=== PATIENT | female | born 1940 | race Caucasian/White ===

== ENCOUNTER 2016-02-08 07:45 | Day surgery (SDC) | payer MEDICARE ==
[2016-01-27 14:59] VITALS: BMI 33.0
[~2016-02-08 07:45] MED LIST: LACTATED RINGERS 1,000 ML IV SCH
[2016-02-08 08:08] VITALS: RESP 16; TEMP 98
[2016-02-08] MEDS ORDERED: LIDOCAINE 1% 20 ML VIAL (10MG/ML) FOR IV START SQ ONE (08:09)
[2016-02-08] MEDS ORDERED: LACTATED RINGERS 1,000 ML IV ONE (08:19)
[2016-02-08] MEDS ORDERED: MIDAZOLAM 2 MG/2 ML VIAL ONE (08:58)
[2016-02-08] MEDS ORDERED: TRIAMCINOLONE ACETONIDE 40 MG/ML 1 ML VIAL ONE (08:58)
[2016-02-08] MEDS ORDERED: fentaNYL (PF) 50 MCG/ML 2 ML AMP ONE (08:58)
[2016-02-08] MEDS ORDERED: IOHEXOL 180 MG/ML 1 ML ML ONE (08:58)
[2016-02-08] MEDS ORDERED: BUPIVACAINE (PF) 0.25% 30 ML VIAL ONE (08:58)
--- NOTE | 2016-02-08 09:18 | P.PCN ---
Date of Procedure: 02/08/16 Preoperative Diagnosis: Left lumbar radiculopathy Postoperative Diagnosis: Left lumbar radiculopathy Procedure(s) Performed: Lumbar epidural steroid injection under fluoroscopic guidance Implants: Anesthesia: MAC Surgeon: Nehemias Banda Pathology: none sent Condition: stable Disposition: PACU Indications for Procedure: Operative Findings: Description of Procedure: The patient was seen in preop holding area consent was obtained then she was brought into the procedure room and placed in prone position. Skin was prepped with Betadine 3 and draped in a sterile manner. Lidocaine 1% was used to numb the skin over the target point was at the L5-S1 level in the left paramedian approach. I used a 20-gauge 3-1/2 inch Touhy epidural needle with loss-of- resistance to air to identify the epidural space. There was positive loss-of- resistance to air at about 9 cm from skin negative aspiration for any CSF or blood negative paresthesia I then injected 1 mL of Omnipaque which showed typical epidurogram with AP and lateral views of fluoroscopy after that I injected 80 mg of Kenalog was 2 MLS of Marcaine 0.25% +4 MLS of posterior free normal saline to a total volume of 7 MLS in epidural space. Patient tolerated procedure well.
[2016-02-08] MEDS ORDERED: IV FLUID CONTINUATION 1,000 ML IV ONE (09:24)
--- NOTE | 2016-02-08 09:38 | FL ---
Fluoroscopy INDICATION: Pain FINDINGS: Fluoroscopy time: 5 seconds. Images obtained: 1. IMPRESSIONS: 1. Documentation of fluoroscopy.
[2016-02-08 09:45] VITALS: BP 147/65; PULSE 60
== END 2016-02-08 10:05 | disposition home or self-care (01) ==
LOC: ORPAIN 07:45
PROVIDERS: ATTEND Anesthesiology
DX: M54.16 Radiculopathy, lumbar region (principal)
CPT/HCPCS: 62323; J2250; J3301; Q9965; J3010

== ENCOUNTER 2016-03-28 06:22 | Day surgery (SDC) | payer MEDICARE ==
[2016-03-21 15:14] VITALS: BMI 33.0
[2016-03-28] MEDS ORDERED: LIDOCAINE 1% 20 ML VIAL (10MG/ML) FOR IV START INTRADERMA ONE (06:50)
[2016-03-28 07:11] VITALS: RESP 16; TEMP 97.9
[2016-03-28] MEDS ORDERED: MIDAZOLAM 2 MG/2 ML VIAL ONE (07:17)
[2016-03-28] MEDS ORDERED: IOHEXOL 180 MG/ML 1 ML ML ONE (07:17)
[2016-03-28] MEDS ORDERED: fentaNYL (PF) 50 MCG/ML 2 ML AMP ONE (07:17)
[2016-03-28] MEDS ORDERED: TRIAMCINOLONE ACETONIDE 40 MG/ML 1 ML VIAL ONE (07:17)
--- NOTE | 2016-03-28 07:38 | P.PCN ---
Date of Procedure: 03/28/16 Procedure(s) Performed: PREOPERATIVE DIAGNOSIS: 1- Lumbar Degenerative Disc Diseases 2-Lumbar radiculopathy POSTOPERATIVE DIAGNOSIS: Same as preoperative diagnosis PROCEDURE 1. Lumbar epidural steroid injection under fluoroscopic guidance at the L5-S1 level. 2. Lumbar epidurogram. ANESTHESIA: Local with 1% lidocaine 3 ml and IV sedation with Versed 2 mg , and fentanyle 50 Mcg EBL: Minimal PROCEDURE INDICATION: The patient with low back pain and radiculitis symptoms unresponsive to conservative treatment. Fluoroscopy was used to optimize visualization of the needle placement and to maximize safety. PROCEDURE DESCRIPTION / TECHNIQUE: The patient was seen and identified in the preoperative area. Risks, benefits , complications including but not limited to infections ,bleeding ,allergic reaction to the medications ,nerve damage and not complete pain releife , and alternatives were discussed with the patient. The patient agreed to proceed with the procedure and signed the consent. IV was started, and vital signs were stable. Patient was taken to the OR and time out was completed. The patient was placed in the prone position on procedure table and a pillow was placed under the abdomen to reduce lumbar lordosis. The lumbosacral area was prepped and draped in the usual sterile fashion.ere closely monitored during the procedure. Conscious sedation was used during the procedure to decrease patients anxiety. Vital signs was monitered during the entire procedure. Using anterior-posterior fluoroscopy, the L5-S1 interlaminar space was identified and the skin over this site was marked and then infiltrated with 1% lidocaine subcutaneously. Subsequently, a 20-gauge Tuohy epidural needle was inserted and advanced toward the epidural space using the ``Loss of resistance technique and guided by AP and lateral fluoroscopy. The correct needle position in the epidural space was verified with the injection of 2 mL of the water soluble contrast dye Omnipaque 180 contrast and observing an excellent epidurogram with the epidural spread of the dye, after negative aspiration for blood and CSF and in the absence of paresthesias. Again after negative aspiration, a 6 ml mixture containing 80 mg of Kenalog and 2 ml of preservative free Normal Saline, and 2 ml of preservative free lidocaine 1% solution was injected and a washout of epidurogram was seen. Needle was withdrawn intact, skin was cleansed, and bandages were applied. COMPLICATIONS: None DISPOSITION / PLANS: The patient was placed in a supine position and transferred to the recovery area in a stable condition for observation. There was no evidence of lower extremity motor or sensory deficit after the procedure. Patient was discharged from the recovery room after meeting discharge criteria. Home discharge instructions were given to the patient by the staff. The patient was reexamined prior to discharge. The patient will schedule a follow up in the clinic in 2-4 weeks.
[2016-03-28 08:21] VITALS: BP 131/76; PULSE 61
[2016-03-28] MEDS ORDERED: IV FLUID CONTINUATION 1,000 ML IV ONE (08:32)
--- NOTE | 2016-03-28 08:45 | FL ---
Fluoroscopy HISTORY: Pain 1 second fluoroscopy time supplied to the referring clinician. 1 intraoperative C-arm images documen t the procedure. See dictated report from anesthesia.
== END 2016-03-28 08:44 | disposition home or self-care (01) ==
LOC: ORPAIN 06:22
PROVIDERS: ATTEND Specialist
DX: M51.16 Intervertebral disc disorders with radiculopathy, lumbar region (principal); I10 Essential (primary) hypertension; Z79.891 Long term (current) use of opiate analgesic; Z79.899 Other long term (current) drug therapy
CPT/HCPCS: 62323; J2250; J3301; Q9965; J3010

== ENCOUNTER 2016-05-10 09:49 | Day surgery (SDC) | payer MEDICARE ==
[2016-04-28 11:18] VITALS: BMI 33.0
[2016-05-10] MEDS ORDERED: LACTATED RINGERS 1,000 ML IV ONE (09:53)
[2016-05-10 10:04] VITALS: RESP 18; TEMP 98
[2016-05-10] MEDS ORDERED: LIDOCAINE 1% 20 ML VIAL (10MG/ML) FOR IV START INTRADERMA ONE (10:12)
[2016-05-10] MEDS ORDERED: TRIAMCINOLONE ACETONIDE 40 MG/ML 1 ML VIAL ONE (11:05)
[2016-05-10] MEDS ORDERED: fentaNYL (PF) 50 MCG/ML 2 ML AMP ONE (11:05)
[2016-05-10] MEDS ORDERED: MIDAZOLAM 2 MG/2 ML VIAL ONE (11:05)
[2016-05-10] MEDS ORDERED: IOHEXOL 180 MG/ML 1 ML ML ONE (11:05)
[2016-05-10] MEDS ORDERED: IV FLUID CONTINUATION 1,000 ML IV ONE (11:57)
[2016-05-10 12:38] VITALS: BP 145/75; PULSE 60
--- NOTE | 2016-05-10 13:08 | FL ---
Fluoroscopy INDICATION: Pain FINDINGS: Fluoroscopy time: 14 seconds. Images obtained: 2. IMPRESSIONS: 1. Documentation of fluoroscopy.
--- NOTE | 2016-05-30 08:13 | P.PCN ---
Date of Procedure: 05/10/16 Surgeon: Isidro Boss Pathology: none sent Condition: stable Disposition: PACU Description of Procedure: PREOPERATIVE DIAGNOSIS: 1-Lumbar radiculitis. POSTOPERATIVE DIAGNOSIS: 1-Lumbar radiculitis. PROCEDURE 1. Lumbar epidural steroid injection under fluoroscopic guidance at the L5-S1 level. 2. Lumbar epidurogram. ANESTHESIA: Local with 1% lidocaine; IV sedation with Versed/fentanyl. EBL: Minimal PROCEDURE INDICATION: The patient with low back pain and radiculitis symptoms unresponsive to conservative treatment. Fluoroscopy was used to optimize visualization of the needle placement and to maximize safety. No use of blood thinners. PROCEDURE DESCRIPTION / TECHNIQUE: The patient was seen and identified in the preoperative area. Risks, benefits, complications, and alternatives were discussed with the patient, including but not limited to bleeding, infection, nerve damage, allergic reactions to medications, and incomplete pain relief. The patient agreed to proceed with the procedure and signed the consent after all questions were answered. IV was started, and vital signs were stable. Patient was taken to the OR and time out was completed to confirm patient position, procedure, laterality of pain, and allergies. The patient was placed in the prone position on procedure table and a pillow was placed under the abdomen to reduce lumbar lordosis. The lumbosacral area was prepped and draped in the usual sterile fashion. Critical pause was taken. Vital signs were closely monitored during the procedure. Conscious sedation was used during the procedure to decrease patients anxiety. Using anterior-posterior fluoroscopy, the L5-S1 interlaminar space was identified and the skin over this site was marked and then infiltrated with 1% lidocaine subcutaneously. Subsequently, a 20-gauge Tuohy epidural needle was inserted and advanced toward the epidural space using the Loss of resistance technique and guided by AP and lateral fluoroscopy. The correct needle position in the epidural space was verified with the injection of 2 mL of the water soluble contrast dye Omnipaque 300 contrast and observing an excellent epidurogram with the epidural spread of the dye, after negative aspiration for blood and CSF and in the absence of paresthesias. Again after negative aspiration, a 8 ml mixture containing 80 mg of Kenalog and 4 ml of preservative free Normal Saline, and 2 ml of preservative free lidocaine 1% solution was injected and a washout of epidurogram was seen. Needle was withdrawn intact, skin was cleansed, and bandages were applied. COMPLICATIONS: None COMMENTS: DISPOSITION / PLANS: The patient was placed in a supine position and transferred to the recovery area in a stable condition for observation. There was no evidence of lower extremity motor or sensory deficit after the procedure. Patient was discharged from the recovery room after meeting discharge criteria. Home discharge instructions were given to the patient by the staff. The patient was reexamined prior to discharge and there were no issues. The patient will schedule a follow up in the clinic in 2-4 weeks.
== END 2016-05-10 12:43 | disposition home or self-care (01) ==
LOC: ORPAIN 09:49
PROVIDERS: ATTEND Anesthesiology
DX: G89.29 Other chronic pain (principal); M54.16 Radiculopathy, lumbar region; I10 Essential (primary) hypertension; E78.5 Hyperlipidemia, unspecified; F41.9 Anxiety disorder, unspecified; Z88.6 Allergy status to analgesic agent; Z88.5 Allergy status to narcotic agent; Z88.8 Allergy status to other drugs, medicaments and biological substances
CPT/HCPCS: 62323; 99152; J2250; J3301; Q9965; J3010

== ENCOUNTER → 2016-06-15 | Outpatient (CLI) | payer MEDICARE ==
[2016-06-15 09:06] LABS: Blood Urea Nitrogen 18 mg/dL (7-17); Non-African American GFR(MDRD) >60 (>60 ml/min/1.73 sqM)
--- NOTE | 2016-06-15 09:59 | CT ---
EXAMINATION TYPE: CT abdomen w con DATE OF EXAM: 06/15/2016 9:39 AM COMPARISON: NONE HISTORY: Patient complains of bilateral upper quadrant pain, nausea, and diarrhea. CT DLP: 857.2 mGycm CONTRAST: CT scan of the abdomen is performed with Oral Contrast and with IV Contrast, patient injected with 10 0 mL of Omnipaque 300. FINDINGS: LUNG BASES-: No visible nodule. No infiltrate. LIVER/GB: The gallbladder is surgically absent. There is evidence of fatty hepatic infiltration. N o space occupying hepatic lesion. Biliary tree is of normal caliber. PANCREAS: No inflammation. No distinct mass. SPLEEN: No splenic enlargement. No lesion seen. ADRENALS: No nodule. No thickening. KIDNEYS/BLADDER: No hydronephrosis. No nephrolithiasis. Large left renal cyst measuring 6.9 cm. Ur inary bladder grossly unremarkable. BOWEL: Nonvisualization of the appendix. Moderate fixed hiatal hernia. Normal bowel caliber. No inf lammation. LYMPH NODES: No greater than 1cm abdominal or pelvic lymph nodes are appreciated. AORTA: No significant abnormality. OSSEOUS STRUCTURES: No significant abnormality is seen. OTHER: No significant additional abnormality is seen. IMPRESSION: 1. Moderate fixed hiatal hernia. 2. Hepatic steatosis. 3. Left renal cyst
== END | disposition home or self-care (01) ==
LOC: RADCTMAIN 08:15
PROVIDERS: ATTEND Internal Medicine
DX: N28.1 Cyst of kidney, acquired (principal); K76.0 Fatty (change of) liver, not elsewhere classified; K44.9 Diaphragmatic hernia without obstruction or gangrene
CPT/HCPCS: 82565; 84520; 74160; 36415; Q9967

== ENCOUNTER → 2016-06-21 | Outpatient (CLI) | payer MEDICARE ==
[2016-06-21 14:44] VITALS: BP 126/59; PULSE 68; RESP 18; TEMP 98.2
--- NOTE | 2016-06-21 20:56 | P.PN ---
Subjective This is follow-up visit for this patient with a history of severe and chronic low back pain secondary to lumbar degenerative disc diseases , lumbar radiculitis we have done Lumbar epidural steroid injections x3 , patient had minimal benefit and she continued to have severe low back pain ,and is currently on pain medications 1-Neurontin 300 mg 3 times a day 2-Percocet 5/325 every 6 hours Patient denies any side effects of the medication, denies excessive drowsiness or sleepiness, denies suicidal ideation, and reports that the current pain medication is helping To control the pain and improve activity of daily living Patient denies any motor or sensory deficit , patient denies any fever or night sweats, denies any change in the bowel movements or urination Physical Examinations : 1-Constitutiona : Cooperative , not in acute distress . 2-HEENT : nech ; supple , no Lymphadenopathy , no Thyromegaly , normal thyroid size . eyes : no ptosis , no icterus, no photophobia . ENT : normal of hearing , normal oropharynx , no Thrush . 3- Respiratory : Chest clear to auscultations Bilaterally , no wheezing , no Rhonchi . 4- Cardiovascular : regular rate and rhythem , S1 , S2 , no S3 , no S4. 5- Gastrointestinal : abdomen soft no tenderness , bowel sounds positive all four quadrents , no organomegally . 6- Genitourinary : Defferred . 7- neurologic : Cranial nerve II to XII intact , no focal neurological deffecit . 8-psychatric : alert , oriented X 3 , appropriate affect , intact judgment and insight . 9-Lymphatic : no Lymphadenopathy . 10- musculoskeltal : exams of the Lumber spine = motor strength lower extremities ,thigh and legs .5/5 deep tendon reflexes : normal Knee Jerk , normal ankle Jerk . lumber facet Loading Test positive strait leg raising test positive at 30 degree , RT ,LT , Fabere test positive RT and positive LT . Range of motion: Range of motion in flexion of the lumbar spine 30 degrees Range of motion range of motion of extension of the lumbar spine 10 Assessment and plan = - Chronic low back pain secondary to lumbar degenerative disc disease , lumbar radiculopathy, - chronic and current use of high-risk medication (Opioids). The patient was counseled about risk of opioid use, psychological risk associated with opioids and was orally counseled to not overuse , divert,or sell dictations to take medications as prescribed only , and to restore medication in safe location , and the patient counseled against driving while using narcotic medications, and also not to use alcohol or any illicit recreational drugs, the patient's verbalized understanding that the lack of compliance will result in failure to renew narcotic prescription and possible discharge from the clinic - diagnoses, prognosis, and treatment options including but not limited to physical therapy, surgical interventions, interventional therapies , and medication management including narcotics and adjuvant medication discussed with the patient, ascription refill for Percocet 5/325 every 6 hours dispensed 120 with one refill Neurontin 300 mg every 8 hours dispense 90 with 1 refill and she will follow up with the pain clinic in 2 months Objective - Vital Signs Vital signs: Vital Signs Temp 98.2 F 06/21/16 14:36 Pulse 68 06/21/16 14:36 Resp 18 06/21/16 14:36 BP 126/59 06/21/16 14:36 Pulse Ox 98 06/21/16 14:36 Intake & Output 06/21/16 06/21/16 06/22/16 06:59 18:59 06:59 Weight 80.739 kg
== END ==
LOC: PNWHC3 13:49
PROVIDERS: ATTEND Specialist
DX: M51.16 Intervertebral disc disorders with radiculopathy, lumbar region (principal); G89.29 Other chronic pain; Z87.891 Personal history of nicotine dependence
CPT/HCPCS: 99211

== ENCOUNTER → 2016-08-16 | Outpatient (CLI) | payer MEDICARE ==
[2016-08-16 12:37] VITALS: BP 121/66; PULSE 95; RESP 20; TEMP 97.6
--- NOTE | 2016-08-16 13:25 | P.PN ---
Progress Note - Text Patient returns for follow up for chronic low back and neck pain, s/p LESIs in the past with relief x 1-2 months typically. Patient continues on Percocet and Neurontin medications for pain with good relief. Patient denies adverse drug effects from medications. Today, pt denies new-onset weakness, bowel/ bladder incontinence, or any other signs or symptoms of cauda equina syndrome. There are no signs of acute intoxication, and no indications of medication diversion or overuse. In addition to above, 13-point review of systems is also negative for chest pain , shortness of breath, changes in vision, changes in hearing, new onset weakness , abdominal pain, diarrhea, extreme fatigue, malaise, fever, skin changes, homicidal or suicidal ideation, or bowel or bladder incontinence. Vital Signs: Reviewed in EMR Gen: WDWN, AAOx3, NAD HEENT: NCAT, EOMI, hearing grossly normal Pulm: resp unlabored Abd: soft, NT, ND Neck: supple, trachea midline ROM in flexion lumbar spine: reduced ROM in extension lumbar spine: reduced Lumbar paravertebral tenderness: bilateral SI joint tenderness: + R side SLR: + RLE Lower extremity: decreased ROM dorsiflexion/plantarflexion strength, hip flexion/extension, and knee flexion/extension secondary to pain Neuro: CN II-XII grossly intact, muscle strength lower extremities PRESERVED Imaging: Reviewed in EMR Assessment: 1. lumbar disc herniations 2. lumbar radiculopathy 3. lumbar DDD Plan: 1. Explanation: Opioid and psychological risk scores were reviewed. Diagnoses , prognoses, and multiple treatment options including but not limited to physical therapy, interventional therapies, adjuvant medical therapies, narcotic medication therapies, and surgery were discussed with the patient and all questions were answered to the patient's satisfaction. 2. Opioid agreement: Patient has previously signed narcotic agreement, and was orally counseled to not overuse, abuse, divert, or cell medications, and to take them as prescribed by only 1 healthcare provider. The patient was also counseled to store opioid medications in a safe and preferably locked location. Patient was also counseled against driving while using narcotic medications and also to not use alcohol or any illicit or recreational drugs. The patient verbalized understanding that lack of compliance with any of the above and likely result in failure to renew narcotic prescriptions, possible discharge from the clinic, and possible legal ramifications thereafter if indicated. 3. Counseling: The patient was counseled extensively on SMOKING CESSATION, BODY MASS INDEX, EXERCISE. Specifically, the patient was instructed regarding the importance of smoking cessation, obesity, and exercise in the context of both chronic pain and overall health. 4. Procedures: LESI in 4-6 weeks 5. Consultations: None 6. Investigations: MRI lumbar spine 7. Medications: Percocet 5/325 #120 x 2 months (patient has enough Neurontin for at least six more months) 8. Disposition: f/u for procedure as scheduled, and for re-eval in 8 weeks PQRS measures: 1-Patient's medications are documented in the chart. 2-Tobacco use is negative 3-Patient has not had a pneumococcal vaccine. 4-Advanced care planning discussed, patient unable to give. 5-Opioid contract signed with the patient. 6-Pain positive, follow-up visit or procedure scheduled 7-Patient's blood pressure measured and documented, and patient will follow up with the primary care due to hypertension. 8-Patient's weight was measured, and body mass index ABOVE the normal limits, and counseling was done. Patient instructed to follow up with PCP. 9-Patient WAS NOT identified as an unhealthy alcohol user.
== END ==
LOC: PNWHC3 11:53
PROVIDERS: ATTEND Anesthesiology
DX: M51.16 Intervertebral disc disorders with radiculopathy, lumbar region (principal); Z79.891 Long term (current) use of opiate analgesic; Z79.899 Other long term (current) drug therapy
CPT/HCPCS: 99211

== ENCOUNTER → 2016-08-25 | Outpatient (CLI) | payer MEDICARE ==
--- NOTE | 2016-08-28 12:53 | MM ---
Reason for exam: screening (asymptomatic). Last mammogram was performed 3 years and 3 months ago. History: Patient is postmenopausal. Family history of premenopausal breast cancer in mother at age 31. Benign excisional biopsy of the left breast, 1996. Taking estrogen for 11 years 2 months beginning at age 59. Physical Findings: A clinical breast exam by your physician is recommended on an annual basis and results should be correlated with mammographic findings. MG 3D Screening Mammo W/Cad Bilateral CC and MLO view(s) were taken. Prior study comparison: May 23, 2013, bilateral digital screening mammo w/CAD. February 15, 2012, bilateral digital screening mammo w/CAD. There are scattered fibroglandular densities. Finding: There are typically benign vascular, round calcifications in both breasts. Asymmetric breast tissue in the right breast outer quadrant is stable. There is no discrete abnormality. ASSESSMENT: Benign, BI-RAD 2 RECOMMENDATION: Routine screening mammogram of both breasts in 1 year.
== END | disposition home or self-care (01) ==
LOC: RADMAMWWP 08:59
PROVIDERS: ATTEND Internal Medicine
DX: Z12.31 Encounter for screening mammogram for malignant neoplasm of breast (principal)
CPT/HCPCS: 77063; G0202

== ENCOUNTER → 2016-08-28 | Outpatient (CLI) | payer MEDICARE ==
--- NOTE | 2016-08-29 17:00 | BD ---
EXAMINATION TYPE: MG DEXA axial skeleton. DATE OF EXAM: 08/28/2016 COMPARISON: NONE CLINICAL HISTORY: 75-year-old female osteoporosis Height: 59 IN Weight: 173 LBS FRAX RISK QUESTIONS: Alcohol (3 or more units per day): NO Family History (Parent hip fracture): NO Glucocorticoids (More than 3mos): NO (Ex: prednisone, prednisolone, methylprednisolone, dexamethasone, and hydrocortisone). History of Fracture in Adulthood: NO Secondary Osteoporosis: 1. Type 1 Diabetes: NO 2. Hyperthyroidism: NO 3. Menopause before 45: NO AGE 46 4. Malnutrition: NO 5. Chronic liver disease: NO Rheumatoid Arthritis: NO Current Tobacco Use: NO RISK FACTORS HISTORY OF: Active: MODERATE USES CANE Diet low in dairy products/other sources of calcium: YES Postmenopausal woman: AGE 46 Take estrogen and/or progesterone medications: NOT NOW How long: AGE 46 - 68 Frequent falls: YES BALANCE ISSUES MEDICATIONS: Additional Medications: VIT D3, BLOOD PRESSURE MEDS, BIOTIN, MULTI VIT, PERCOCET, ZOLOFT, COLACE, ANT IHISTAMINE, EXAM MEASUREMENTS: Bone mineral densitometry was performed using the [employer]. Bone mineral density as measured about the Lumbar spine is: ----- L1-L4(G/cm2): 1.328 T Score Values are as follows: ----- L2: 1.6 ----- L3: 2.4 ----- L4: 1.4 ----- L1-L4: 1.2 Bone mineral density has: Decreased -6.6% since study of: 08/15/2012 Bone mineral density about the R hip (g/cm2): 0.933 Bone mineral density about the L hip (g/cm2): 0.926 T Score values are as follows: -----R Neck: -0.8 -----L Neck: -0.8 -----R Total: -0.3 -----L Total: -0.5 Bone mineral density has: NOT COMPARED TO study of: 08/15/2012 IMPRESSION: Normal (Values between +1 and -1 indicate normal bone mass). Consider repeating this study in 5 year s or sooner if there is some new clinical indication. NOTE: T-SCORE=SD OF THE YOUNG ADULT MEAN.
== END | disposition home or self-care (01) ==
LOC: RADBDWWP 15:39
PROVIDERS: ATTEND Internal Medicine
DX: M81.0 Age-related osteoporosis without current pathological fracture (principal)
CPT/HCPCS: 77080

== ENCOUNTER → 2016-08-31 | Outpatient (CLI) | payer MEDICARE ==
--- NOTE | 2016-08-31 14:09 | MR ---
EXAMINATION TYPE: MR lumbar spine wo con DATE OF EXAM: 08/31/2016 COMPARISON: MRI lumbar spine October 18, 2010 HISTORY: lumbar spondylosis per order. Back going into bilateral legs Pain with difficulty ambulating per patient for 10 years. TECHNIQUE: Multiplanar, multisequence imaging of the lumbar spine is performed without IV contrast. FINDINGS: Sagittal images of the lumbar spine show vertebral body heights to remain satisfactory. The re is levoconvex scoliosis centered at L2 level and dextroconvex scoliosis centered at lumbosacral ju nction redemonstrated. There is new grade 1 anterolisthesis of L4 on L5 seen on sagittal images. Mult ilevel disc desiccation is redemonstrated. There is advanced disc space narrowing with heterogeneous endplate changes right L2-L3 and left L4-L5 levels more prominent than prior study. Posterior disc he rniations L2-L3 through L4-L5 levels are redemonstrated on sagittal images. Most prominent level is L 3-L4 level where there is increased spinal canal stenosis seen on sagittal images. The conus medullar is remains normal in position and signal ending at mid L1 level. The bone marrow signal intensity is within normal limits. Axial images show the T12-L1 level to remain within normal limits. Axial images at L1-L2 level show broad-based posterior disc protrusion effacing anterior thecal sac. There is mild ligamentum flavum hypertrophy bilaterally effacing posterior lateral thecal sac on axia l image 23. Findings are new from prior study. Bilateral neural foramina remain patent. Axial images at the L2-L3 level show mild to moderate facet degenerative changes and ligamentum flavu m hypertrophy effacing posterior lateral thecal sac. There is moderate broad disc bulge effacing the anterior thecal sac. There is moderate right and mild left-sided anterior inferior neural foraminal n arrowing at this level identified. No significant change from prior study is present. Axial images at L3-L4 levels show slight spondylolisthesis with broad disc bulge that has central dis c protrusion component effacing anterior thecal sac on axial image 12. There is moderate facet degene rative changes and ligament flavum hypertrophy effacing the posterior lateral thecal sac. There is mo st prominent spinal canal stenosis at this level on axial image 12 increased from prior study. There is moderate to severe bilateral neural foraminal narrowing with encroachment on both L3 nerves suspec betsy on sagittal images 11 and 12 on the right and on sagittal image 4 on the left. Axial images at L4-L5 level show spondylolisthesis with broad-based posterior disc protrusion effacin g anterior thecal sac. There is moderate to advanced facet degenerative changes bilaterally. There is anterior and posterior lateral spinal canal effacement on axial image 7 more prominent than prior st udy. There is mild to moderate right anterior inferior neural foraminal narrowing with more severe le ft-sided neural foraminal narrowing with encroachment on the left L4 nerve seen on sagittal image 6 r edemonstrated. Axial images at L5-S1 level show moderate facet degenerative changes bilaterally. There is no signifi cant disc herniation. Spinal canal is preserved. Bilateral neural foramina are grossly patent. There is partial visualization of large T2 hyperintense lesion felt to reflect thin-walled cyst measu ring at least 6.5 x 4.3 cm posteriorly lower pole level left kidney increased in size from prior exam . This correlates with recent CT abdomen study of large but otherwise simple appearing 6.9 cm cyst. IMPRESSION: Scoliosis and loss of normal lumbar lordosis with multilevel degenerative changes seen mo st prominent in mid to lower lumbar spine. There is worsening and most prominent spinal canal stenosi s at L3-L4 level. Encroachment on both L3 nerves and left L4 nerve is felt present. Further details a re noted as discussed above.
== END | disposition home or self-care (01) ==
LOC: RADMRIMAIN 13:03
PROVIDERS: ATTEND Anesthesiology
DX: M48.06 Spinal stenosis, lumbar region (principal); M47.816 Spondylosis without myelopathy or radiculopathy, lumbar region
CPT/HCPCS: 72148

== ENCOUNTER 2016-09-28 07:19 | Day surgery (SDC) | payer MEDICARE ==
[2016-09-25 11:41] VITALS: BMI 32.5
[2016-09-28 07:42] VITALS: RESP 16; TEMP 98.1
[2016-09-28] MEDS ORDERED: LIDOCAINE 1% 20 ML VIAL (10MG/ML) FOR IV START INTRADERMA ONE (07:43)
--- NOTE | 2016-09-28 08:10 | P.PCN ---
Date of Procedure: 09/28/16 Preoperative Diagnosis: Lumbar stenosis Lumbar degenerative disc disease Lumbar radiculopathy Postoperative Diagnosis: same as above Procedure(s) Performed: Lumbar epidural steroid injection under fluoroscopic guidance at the L4 5 level in the interlaminar approach Implants: Anesthesia: other (Conscious sedation with IV fentanyl and Versed) Surgeon: Nehemias Banda Pathology: none sent Condition: stable Disposition: PACU Indications for Procedure: Operative Findings: Description of Procedure: The patient was seen in preop holding area consent was obtained then she was brought into the procedure when placed in prone position. Skin was prepped with Betadine 3 and draped in a sterile manner. Lidocaine 1% was used to numb the skin up at the target point was at the L4 5 level. I used 20-gauge 3-1/2 inch Touhy epidural needle with [id number] to air to identify the epidural space. There was positive [id number]-rukikizzbe to air negative aspiration for any CSF or blood negative paresthesia after that I injected 2 MLS of Omnipaque which showed typical epidurogram with AP view of fluoroscopy then I injected 80 mg of Kenalog plus 2 mils of Marcaine 0.25% +3 MLS of preservative free normal saline to a total volume of 7 MLS in epidural space. Patient tolerated procedure well.
[2016-09-28] MEDS ORDERED: IV FLUID CONTINUATION 1,000 ML IV ONE (08:19)
--- NOTE | 2016-09-28 08:36 | FL ---
EXAMINATION TYPE: FL guided pain mgmt statistic DATE OF EXAM: 09/28/2016 COMPARISON: NONE HISTORY: Back pain TECHNIQUE: Fluoroscopy. FINDINGS/IMPRESSION: Fluoroscopic guidance was provided during procedure performed by Dr. Banda. A total of 8 seconds of fluoroscopic time was utilized during the procedure and 1 spot images was acq uired.
[2016-09-28 08:44] VITALS: BP 136/69; PULSE 55
== END 2016-09-28 09:07 | disposition home or self-care (01) ==
LOC: ORPAIN 07:19
DX: M48.06 Spinal stenosis, lumbar region (principal); M51.16 Intervertebral disc disorders with radiculopathy, lumbar region; Z88.6 Allergy status to analgesic agent; Z88.5 Allergy status to narcotic agent
CPT/HCPCS: 62323; 99152; J2250; J3301; Q9965; J3010

== ENCOUNTER → 2016-10-11 | Outpatient (CLI) | payer MEDICARE ==
[2016-10-11 14:49] VITALS: BP 162/83; PULSE 67; RESP 18
--- NOTE | 2016-10-11 15:22 | P.PN ---
Progress Note - Text This is a 75-year-old female with history of severe degenerative disc disease lumbar stenosis and spondylosis. The patient also has peripheral neuropathy. Gets worse with activity especially walking for long distances which limits the patient's daily activities. The new MRI results were reviewed with the patient which showed worsening and prominent spinal canal stenosis at L3-4 level with encroachment on both L3 and left L4 nerve roots. The patient's pain usually responds partially to lumbar epidural steroid injection which usually last for 2-3 months. The patient is still takes Percocet 5 mg 4 times a day for her pain and Neurontin. She wants to visit Dr. Baron to see if she would be a candidate for back surgery. It seems that the patient has been having urinary incontinence issues and I asked her to see a urologist and also visit Dr. Baron to try to discern the cause of this incontinence. For now I'll give her prescription for 2 months of Percocet 5 mg to be used up to 4 times a day if needed for pain and we'll see her 2 months from now for reevaluation.
== END | disposition home or self-care (01) ==
LOC: PNWHC3 14:03
PROVIDERS: ATTEND Anesthesiology
DX: M48.06 Spinal stenosis, lumbar region (principal); M51.36 Other intervertebral disc degeneration, lumbar region; M47.816 Spondylosis without myelopathy or radiculopathy, lumbar region; Z79.891 Long term (current) use of opiate analgesic; Z79.899 Other long term (current) drug therapy
CPT/HCPCS: 99211

== ENCOUNTER → 2017-02-28 | Outpatient (CLI) | payer MEDICARE ==
[2017-02-28 13:22] VITALS: BP 120/76; PULSE 63; RESP 16; TEMP 98.3
--- NOTE | 2017-02-28 13:43 | P.PN ---
Progress Note - Text Progress Note Date: 02/28/17 Patient returns for follow up for chronic low back and neck pain, s/p LESIs in the past with relief x 1-2 months typically. Patient has now decided against laser spine procedure; she has had poor relief with oxycodone and wishes to go back to her Percocet pills as they lasted longer for her. Patient continues on Neurontin medications as well with some relief. Patient denies adverse drug effects from medications. Today, pt denies new-onset weakness, bowel/bladder incontinence, or any other signs or symptoms of cauda equina syndrome. There are no signs of acute intoxication, and no indications of medication diversion or overuse. In addition to above, 13-point review of systems is also negative for chest pain , shortness of breath, changes in vision, changes in hearing, new onset weakness , abdominal pain, diarrhea, extreme fatigue, malaise, fever, skin changes, homicidal or suicidal ideation, or bowel or bladder incontinence. Vital Signs: Reviewed in EMR Gen: WDWN, AAOx3, NAD HEENT: NCAT, EOMI, hearing grossly normal Pulm: resp unlabored Abd: soft, NT, ND Neck: supple, trachea midline ROM in flexion lumbar spine: reduced ROM in extension lumbar spine: reduced Lumbar paravertebral tenderness: bilateral, R > L SI joint tenderness: mild + R side SLR: + RLE at 10 degrees Lower extremity: decreased ROM dorsiflexion/plantarflexion strength, hip flexion/extension, and knee flexion/extension secondary to pain Neuro: CN II-XII grossly intact, muscle strength lower extremities PRESERVED Imaging: Reviewed in EMR Assessment: 1. lumbar disc herniations 2. lumbar radiculopathy 3. lumbar DDD Plan: 1. Explanation: Opioid and psychological risk scores were reviewed. Diagnoses , prognoses, and multiple treatment options including but not limited to physical therapy, interventional therapies, adjuvant medical therapies, narcotic medication therapies, and surgery were discussed with the patient and all questions were answered to the patient's satisfaction. 2. Opioid agreement: Patient has previously signed narcotic agreement, and was orally counseled to not overuse, abuse, divert, or cell medications, and to take them as prescribed by only 1 healthcare provider. The patient was also counseled to store opioid medications in a safe and preferably locked location. Patient was also counseled against driving while using narcotic medications and also to not use alcohol or any illicit or recreational drugs. The patient verbalized understanding that lack of compliance with any of the above and likely result in failure to renew narcotic prescriptions, possible discharge from the clinic, and possible legal ramifications thereafter if indicated. 3. Counseling: The patient was counseled extensively on BODY MASS INDEX, EXERCISE. Specifically, the patient was instructed regarding the importance of weight control and exercise in the context of both chronic pain and overall health. 4. Procedures: BARBARAI series (patient specifically requested procedure) 5. Consultations: None 6. Investigations: none 7. Medications: Change oxyIR back to Percocet 5/325 #120 x 2 months and decrease Neurontin to 100 mg BID as patient is complaining of some short-term memory loss 8. Disposition: f/u for procedure as scheduled, and for re-eval in 8 weeks PQRS measures: 1-Patient's medications are documented in the chart. 2-Tobacco use is negative 3-Patient has not had a pneumococcal vaccine. 4-Advanced care planning discussed, patient unable to give. 5-Opioid contract signed with the patient. 6-Pain positive, follow-up visit or procedure scheduled 7-Patient's blood pressure measured and documented, and patient will follow up with the primary care due to hypertension. 8-Patient's weight was measured, and body mass index ABOVE the normal limits, and counseling was done. Patient instructed to follow up with PCP. 9-Patient WAS NOT identified as an unhealthy alcohol user.
== END | disposition home or self-care (01) ==
LOC: PNWHC3 12:57
PROVIDERS: ATTEND Anesthesiology
DX: G89.29 Other chronic pain (principal); M54.5 Low back pain; M54.2 Cervicalgia; M51.16 Intervertebral disc disorders with radiculopathy, lumbar region; Z79.891 Long term (current) use of opiate analgesic; Z79.899 Other long term (current) drug therapy
CPT/HCPCS: 99211

== ENCOUNTER 2017-03-29 07:31 | Day surgery (SDC) | payer MEDICARE ==
[2017-03-29 07:52] VITALS: RESP 18; TEMP 97.9
[2017-03-29] MEDS: LACTATED RINGERS 1,000 ML IV SCH ×2 (08:07→08:24)
[2017-03-29] MEDS ORDERED: LIDOCAINE 1% 20 ML VIAL (10MG/ML) FOR IV START INTRADERMA ONE (08:07)
--- NOTE | 2017-03-29 08:37 | P.PCN ---
Date of Procedure: 03/29/17 Procedure(s) Performed: PREOPERATIVE DIAGNOSIS: 1- Lumbar Degenerative Disc Diseases 2-Lumbar spondylosis with Facet arthropathy without myelopathy. 3-lumbar herniated disc disease. POSTOPERATIVE DIAGNOSIS: 1-Lumber Degenerative Disc Diseases 2-Lumbar spondylosis with Facet arthropathy without myelopathy. 3-lumbar herniated disc disease. PROCEDURE 1. Lumbar epidural steroid injection under fluoroscopic guidance at the L5-S1 level. 2. Lumbar epidurogram. ANESTHESIA: Local with 1% lidocaine 3 ml and , moderate sedation with intravenous Versed 2 mg ,and fentanyle 100 Mcg EBL: Minimal PROCEDURE INDICATION: The patient with low back pain and radiculitis symptoms unresponsive to conservative treatment. Fluoroscopy was used to optimize visualization of the needle placement and to maximize safety. PROCEDURE DESCRIPTION / TECHNIQUE: The patient was seen and identified in the preoperative area. Risks, benefits , complications including but not limited to infections ,bleeding ,allergic reaction to the medications ,nerve damage and not complete pain releife , and alternatives were discussed with the patient. The patient agreed to proceed with the procedure and signed the consent. IV was started, and vital signs were stable. Patient was taken to the OR and time out was completed. The patient was placed in the prone position on procedure table and a pillow was placed under the abdomen to reduce lumbar lordosis. The lumbosacral area was prepped and draped in the usual sterile fashion.ere closely monitored during the procedure. Conscious sedation was used during the procedure to decrease patients anxiety. Vital signs was monitered during the entire procedure. Using anterior-posterior fluoroscopy, the L5-S1 interlaminar space was identified and the skin over this site was marked and then infiltrated with 1% lidocaine subcutaneously. Subsequently, a 20-gauge Tuohy epidural needle was inserted and advanced toward the epidural space using the ``Loss of resistance technique and guided by AP and lateral fluoroscopy. The correct needle position in the epidural space was verified with the injection of 2 mL of the water soluble contrast dye Omnipaque 180 contrast and observing an excellent epidurogram with the epidural spread of the dye, after negative aspiration for blood and CSF and in the absence of paresthesias. Again after negative aspiration, a 6 ml mixture containing 40 mg of Depomedrol, and 2 ml of preservative free Normal Saline, and 2 ml of preservative free lidocaine 1% solution was injected and a washout of epidurogram was seen. Needle was withdrawn intact, skin was cleansed, and bandages were applied. COMPLICATIONS: None DISPOSITION / PLANS: The patient was placed in a supine position and transferred to the recovery area in a stable condition for observation. There was no evidence of lower extremity motor or sensory deficit after the procedure. Patient was discharged from the recovery room after meeting discharge criteria. Home discharge instructions were given to the patient by the staff. The patient was reexamined prior to discharge. The patient will schedule a follow up in the clinic in 2-4 weeks.
[2017-03-29] MEDS ORDERED: IV FLUID CONTINUATION 1,000 ML IV ONE (08:45)
--- NOTE | 2017-03-29 08:46 | FL ---
Fluoroscopy INDICATION: Pain FINDINGS: Fluoroscopy time: 2 seconds. Images obtained: 1. IMPRESSIONS: 1. Documentation of fluoroscopy.
[2017-03-29 09:11] VITALS: BP 132/72; PULSE 57
== END 2017-03-29 09:28 | disposition home or self-care (01) ==
LOC: ORPAIN 07:31
PROVIDERS: ATTEND Specialist
DX: M51.16 Intervertebral disc disorders with radiculopathy, lumbar region (principal); M47.26 Other spondylosis with radiculopathy, lumbar region; I10 Essential (primary) hypertension; Z88.6 Allergy status to analgesic agent; Z88.5 Allergy status to narcotic agent; Z88.8 Allergy status to other drugs, medicaments and biological substances
CPT/HCPCS: 62323; J2250; J1030; J3010

== ENCOUNTER → 2017-04-25 | Outpatient (CLI) | payer MEDICARE ==
[2017-04-25 12:19] VITALS: BP 110/66; PULSE 62; RESP 18; TEMP 97.6
--- NOTE | 2017-04-25 12:48 | P.PN ---
Subjective Progress Note Date: 04/25/17 This is follow-up visit for this patient with a history of severe and chronic low back pain secondary to lumbar degenerative disc disease, lumbar facet arthropathy, we have done Lumbar epidural steroid injections which helped her low back pain , she continued to have low back pain which is increased with any activity patient currently on Neurontin 100 mg twice a day , Percocet 5/325 every 6 hours Patient denies any side effects of the medication, denies excessive drowsiness or sleepiness, denies suicidal ideation, and reports that the current pain medication is helping To control the pain and improve activity of daily living . Patient denies any motor or sensory deficit, denies change in bowel movement or urination, patient denies any fever or night sweats and patient here for follow-up visit and medication refill Objective - Vital Signs Vital signs: Vital Signs Temp 97.6 F 04/25/17 12:12 Pulse 62 04/25/17 12:12 Resp 18 04/25/17 12:12 BP 110/66 04/25/17 12:12 Pulse Ox 97 04/25/17 12:12 Intake & Output 04/24/17 04/25/17 04/25/17 18:59 06:59 18:59 Weight 74.843 kg - Constitutional Constitutional Comment(s): Physical Examinations : 1-Constitutiona : Cooperative , not in acute distress . 2-HEENT : nech ; supple , no Lymphadenopathy , normal thyroid size . eyes : no ptosis , no icterus, no photophobia . 3-- musculoskeltal : , Lumber spine = normal moter stegnth lower extremities ,thigh and legs .5/5 Assessment and Plan Plan: Assessment and plan= chronic low back pain secondary to lumbar degenerative disc disease , lumbar spondylosis with lumbar facet arthropathy , failed back surgery syndrome and lumbar area chronic and current use of high-risk medication (opioids) Patient denies any side effects of the current pain medication and the current treatment/medication ML and the patient to do activity of daily living , Diagnoses, prognosis, treatment options, including but not limited to physical therapy, medication management, interventional therapies, and surgery, were discussed with the patient All the questions answered Patient signed the narcotic agreement, and he was orally counseled, not to overuse, not to abuse, not to Divert , not tp sell pain medication, and to take it as prescribed only, Patient was counseled not to drive or operate heavy equipment while using narcotic medication, and advised not to use alcohol or any Illicit drugs while using the narcotis, the patient's verbalized understanding that lack of compliance with any of the above instructions and will likely to cause discharge from the pain service, not to renew his narcotic prescriptions Medication managements= patient given e prescription refills for Percocet 5/325 every 6 hours dispensed 120 with one refill, Neurontin 100 mg twice a day dispense 60 with one refill , Time with Patient: Less than 30
== END | disposition home or self-care (01) ==
LOC: PNWHC3 12:00
PROVIDERS: ATTEND Specialist
DX: G89.29 Other chronic pain (principal); M51.36 Other intervertebral disc degeneration, lumbar region; M47.816 Spondylosis without myelopathy or radiculopathy, lumbar region; M46.86 Other specified inflammatory spondylopathies, lumbar region; M96.1 Postlaminectomy syndrome, not elsewhere classified; Z79.899 Other long term (current) drug therapy; Z79.891 Long term (current) use of opiate analgesic
CPT/HCPCS: 99211

== ENCOUNTER 2017-04-30 11:46 | Day surgery (SDC) | payer MEDICARE ==
[2017-04-26 11:21] VITALS: BMI 32.2
[~2017-04-30 11:46] MED LIST changes: -LACTATED RINGERS 1,000 ML IV SCH; +Pre Op ABX Message 1 EACH MISC MISCELLANE ONE
[2017-04-30 12:37] VITALS: RESP 16; TEMP 97.4
[2017-04-30] MEDS ORDERED: LACTATED RINGERS 1,000 ML IV ONE (12:49)
[2017-04-30] MEDS ORDERED: ONDANSETRON 4 MG/2 ML VIAL IVP ONE (12:50)
[2017-04-30] MEDS ORDERED: DEXAMETHASONE SOD PHOSPHATE 10 MG/ML 1 ML VIAL IV ONE (12:50)
[2017-04-30] MEDS ORDERED: fentaNYL (PF) 50 MCG/ML 2 ML AMP ONE (13:10)
[2017-04-30] MEDS ORDERED: PROPOFOL 10 MG/ML 20 ML VIAL IV ONE (13:10)
[2017-04-30] MEDS ORDERED: MIDAZOLAM 2 MG/2 ML VIAL ONE (13:10)
[2017-04-30] MEDS ORDERED: BUPIVACAINE (PF) 0.5% 30 ML VIAL SQ ONE (13:13)
[2017-04-30] MEDS ORDERED: LIDOCAINE 2% INJ 20 MG/ML SQ ONE (13:13)
[2017-04-30 13:54] VITALS: BP 139/66; PULSE 57
--- NOTE | 2017-04-30 15:29 | OP ---
OPERATIVE REPORT DATE OF PROCEDURE: 04/30/2017 PREOPERATIVE DIAGNOSIS: Right carpal tunnel syndrome. POSTOP DIAGNOSIS: Right carpal tunnel syndrome. PROCEDURE: Open right carpal tunnel release. DESCRIPTION OF PROCEDURE: The patient was taken to the Operative Suite where a sedation was administered by the Department of Anesthesia. I then performed a local injection along the line of the incision with a combination of Marcaine and Xylocaine both without epinephrine. The hand was then prepped and draped in the usual manner. The arm was elevated, exsanguinated and the cuff was inflated to 250 mm of mercury. A longitudinal incision was made along the ring finger ray distal to the wrist crease. Dissection was taken through the skin and subcutaneous tissue, initially sharp through the skin and then blunt through the subcutaneous tissue to ensure protection of any potential terminal transverse branches of the palmar cutaneous nerve. The palmar fascia was then incised under direct vision longitudinally exposing the transverse carpal ligament. The transverse carpal ligament also was incised under direct vision. The dissection was then continued proximally beneath the skin under direct vision to release the distal forearm fascia. The median nerve was then reflected free of tenosynovium to ensure no adhesions. The tourniquet was then released. The wound was then irrigated and the skin was closed with a running 5-0 nylon suture. A soft bulky dressing was applied including a volar plaster splint holding the wrist in a neutral slightly extended position. The patient was then taken to the Recovery Room in satisfactory condition. MMODL / IJN: [id number] /
== END 2017-04-30 14:30 | disposition home or self-care (01) ==
LOC: OR 11:46
PROVIDERS: ATTEND Orthopaedic Surgery Hand Surgery
DX: G56.03 Carpal tunnel syndrome, bilateral upper limbs (principal); M19.042 Primary osteoarthritis, left hand; M19.041 Primary osteoarthritis, right hand; M19.032 Primary osteoarthritis, left wrist; M19.031 Primary osteoarthritis, right wrist; I10 Essential (primary) hypertension; E78.5 Hyperlipidemia, unspecified; Z87.891 Personal history of nicotine dependence; F32.9 Major depressive disorder, single episode, unspecified; Z79.891 Long term (current) use of opiate analgesic; Z79.899 Other long term (current) drug therapy; Z88.5 Allergy status to narcotic agent; Z88.8 Allergy status to other drugs, medicaments and biological substances
CPT/HCPCS: 64721; J2001; J2250; J1100; J2405; J3010; J2704

== ENCOUNTER → 2017-06-20 | Outpatient (CLI) | payer MEDICARE ==
[2017-06-20 13:01] VITALS: BP 129/69; PULSE 58; RESP 18; TEMP 97.6
--- NOTE | 2017-06-20 13:21 | P.PN ---
Progress Note - Text Progress Note Date: 06/20/17 Patient returns for follow up for chronic low back and neck pain, although she recently underwent carpal tunnel release with Dr. Cruz. Patient also recently underwent LESI procedure with 2 weeks' relief until she fell recently; usually she gets 1-2 months' relief from each epidural procedure. Patient continues on Percocet and Neurontin medications with some relief and improvement in her ADLs. Patient denies adverse drug effects from medications. Today, pt denies new-onset weakness, bowel/bladder incontinence, or any other signs or symptoms of cauda equina syndrome. There are no signs of acute intoxication, and no indications of medication diversion or overuse. In addition to above, 13-point review of systems is also negative for chest pain , shortness of breath, changes in vision, changes in hearing, new onset weakness , abdominal pain, diarrhea, extreme fatigue, malaise, fever, skin changes, homicidal or suicidal ideation, or bowel or bladder incontinence. Vital Signs: Reviewed in EMR Gen: WDWN, AAOx3, NAD HEENT: NCAT, EOMI, hearing grossly normal Pulm: resp unlabored Abd: soft, NT, ND Neck: supple, trachea midline ROM in flexion lumbar spine: reduced ROM in extension lumbar spine: reduced Lumbar paravertebral tenderness: bilateral, R > L SI joint tenderness: mild + R side SLR: neg Imaging: Reviewed in EMR Assessment: 1. lumbar disc herniations 2. lumbar radiculopathy 3. lumbar DDD Plan: 1. Explanation: Opioid and psychological risk scores were reviewed. Diagnoses , prognoses, and multiple treatment options including but not limited to physical therapy, interventional therapies, adjuvant medical therapies, narcotic medication therapies, and surgery were discussed with the patient and all questions were answered to the patient's satisfaction. 2. Opioid agreement: Patient has previously signed narcotic agreement, and was orally counseled to not overuse, abuse, divert, or cell medications, and to take them as prescribed by only 1 healthcare provider. The patient was also counseled to store opioid medications in a safe and preferably locked location. Patient was also counseled against driving while using narcotic medications and also to not use alcohol or any illicit or recreational drugs. The patient verbalized understanding that lack of compliance with any of the above and likely result in failure to renew narcotic prescriptions, possible discharge from the clinic, and possible legal ramifications thereafter if indicated. 3. Counseling: The patient was counseled extensively on BODY MASS INDEX, EXERCISE. Specifically, the patient was instructed regarding the importance of weight control and exercise in the context of both chronic pain and overall health. 4. Procedures: will schedule LESIs in 5. Consultations: None 6. Investigations: none 7. Medications: Percocet 5/325 #120 with one refill, continue Neurontin 100 mg BID with three refills. Patient is also getting Xanax from Dr. Villagran, so we will send an opioid/benzo letter asking him to downtitrate or stop benzos so we can continue with opioid therapy safely. 8. Disposition: f/u for re-eval in 8 weeks PQRS measures: 1-Patient's medications are documented in the chart. 2-Tobacco use is negative 3-Patient has not had a pneumococcal vaccine. 4-Advanced care planning discussed, patient unable to give. 5-Opioid contract signed with the patient. 6-Pain positive, follow-up visit or procedure scheduled 7-Patient's blood pressure measured and documented, and patient will follow up with the primary care due to hypertension. 8-Patient's weight was measured, and body mass index ABOVE the normal limits, and counseling was done. Patient instructed to follow up with PCP. 9-Patient WAS NOT identified as an unhealthy alcohol user.
== END | disposition home or self-care (01) ==
LOC: PNWHC3 12:30
PROVIDERS: ATTEND Anesthesiology
DX: G89.29 Other chronic pain (principal); M54.9 Dorsalgia, unspecified; M51.16 Intervertebral disc disorders with radiculopathy, lumbar region
CPT/HCPCS: 80356; 99211

== ENCOUNTER → 2017-08-03 | Outpatient (CLI) | payer MEDICARE ==
--- NOTE | 2017-08-03 16:21 | ECHOF ---
Referral Reason:I65.23 Occlusion/stenosis bilat carotid arteries MEASUREMENTS -------- HEIGHT: 149.9 cm WEIGHT: 74.8 kg BP: 118/66 RVIDd: 2.4 cm (< 3.3) IVSd: 1.0 cm (0.6 - 1.1) LVIDd: 4.3 cm (3.9 - 5.3) LVPWd: 1.1 cm (0.6 - 1.1) IVSs: 1.4 cm LVIDs: 2.0 cm LVPWs: 1.7 cm LAESV Index (A-L): 24.03 ml/m Ao Diam: 2.8 cm (2.0 - 3.7) AV Cusp: 1.6 cm (1.5 - 2.6) LA Diam: 3.6 cm (2.7 - 3.8) EPSS: 0.4 cm MV E Elvis: 0.73 m/s MV DecT: 348 ms MV A Elvis: 1.03 m/s MV E/A Ratio: 0.71 RAP: 5.00 mmHg RVSP: 26.80 mmHg MV EF SLOPE: 76.69 mm/s (70 - 150) MV EXCURSION: 1.70 cm (> 18.000) FINDINGS -------- Sinus rhythm. This was a technically adequate study. The left ventricular size is normal. Left ventricular wall thickness is normal. Overall left vent ricular systolic function is normal with, an EF between 55 - 60 %. The right ventricle is normal in size and function. Normal LA size by volume 22+/-6 ml/m2. The right atrium is normal in size. Aortic valve is trileaflet and is mildly thickened. There is no evidence of aortic regurgitation. There is no evidence of aortic stenosis. Mild mitral annular calcification present. There is trace to mild mitral regurgitation. Trace tricuspid regurgitation present. Right ventricular systolic pressure is normal at < 35 mmHg. There is no evidence of pulmonary hypertension. Trace/mild (physiologic) pulmonic regurgitation. The aortic root size is normal. Normal inferior vena cava with normal inspiratory collapse consistent with estimated right atrial pre ssure of 5 mmHg. There is no pericardial effusion. CONCLUSIONS -------- 1. Sinus rhythm. 2. This was a technically adequate study. 3. The left ventricular size is normal. 4. Left ventricular wall thickness is normal. 5. Overall left ventricular systolic function is normal with, an EF between 55 - 60 %. 6. Normal LA size by volume 22+/-6 ml/m2. 7. Aortic valve is trileaflet and is mildly thickened. 8. Mild mitral annular calcification present. 9. There is trace to mild mitral regurgitation. 10. Trace tricuspid regurgitation present. 11. Right ventricular systolic pressure is normal at < 35 mmHg. 12. There is no evidence of pulmonary hypertension. 13. Trace/mild (physiologic) pulmonic regurgitation. 14. The aortic root size is normal. 15. There is no pericardial effusion. LAND SURVEY TECHNICIAN: Rafita Molina RDCS
--- NOTE | 2017-08-03 17:12 | US ---
EXAMINATION TYPE: US carotid duplex BILAT DATE OF EXAM: 08/03/2017 COMPARISON: NONE CLINICAL HISTORY: 76-year-old female I65.23 Occlusion/stenosis bilat carotid arteries. Stenosis TECHNIQUE: Carotid duplex ultrasound examination. Indirect Doppler criteria was utilized. FINDINGS: EXAM MEASUREMENTS: RIGHT: Peak Systolic Velocity (PSV) cm/sec ----- Right CCA: 60.0 ----- Right ICA: 63.4 ----- Right ECA: 71.3 ICA/CCA ratio: 1.1 RIGHT: End Diastole cm/sec ----- Right CCA: 10.2 ----- Right ICA: 17.1 ----- Right ECA: 0.0 LEFT: Peak Systolic Velocity (PSV) cm/sec ----- Left CCA: 62.5 ----- Left ICA: 64.5 ----- Left ECA: 62.9 ICA/CCA ratio: 1.0 LEFT: End Diastole cm/sec ----- Left CCA: 13.6 ----- Left ICA: 17.0 ----- Left ECA: 0.0 VERTEBRALS (direction of flow): Right Vertebral: Antegrade Left Vertebral: Antegrade Rhythm: Normal [employer] Manager notes: No elevated velocities, no significant stenosis. IMPRESSION: No hemodynamically significant stenosis appreciated in either internal carotid artery. Criteria for Assigning % of Stenosis / Diameter reduction (Estimation based on the indirect measurements of the internal carotid artery velocities (ICA PSV). 1. Normal (no stenosis)=ICA PSV < 125 cm/s: ratio < 2.0: ICA EDV<40 cm/s. 2. Less than 50% stenosis=ICA PSV < 125 cm/s: ratio < 2.0: ICA EDV<40 cm/s. 3. 50 to 69% stenosis=ICA PSV of 125 to 230 cm/s: ration 2.0 ? 4.0: ICA EDV 40-100 cm/s. 4. Greater than 70% stenosis to near occlusion= ICA PSV > 230 cm/s: ratio > 4.0: ICA EDV > 100 cm/s. 5. Near occlusion= ICA PSV velocities may be low or undetectable: variable ratio and ICA EDV. 6. Total occlusion=unable to detect flow.
== END | disposition home or self-care (01) ==
LOC: RADECHMAIN 14:59
PROVIDERS: ATTEND Internal Medicine
DX: I08.1 Rheumatic disorders of both mitral and tricuspid valves (principal); I65.23 Occlusion and stenosis of bilateral carotid arteries
CPT/HCPCS: 93306; 93880

== ENCOUNTER → 2017-08-15 | Outpatient (CLI) | payer MEDICARE ==
[2017-08-15 14:00] VITALS: BP 123/59; RESP 18
--- NOTE | 2017-08-22 15:43 | P.PN ---
Subjective Progress Note Date: 08/15/17 This is follow-up visit for this patient with a history of severe and chronic low back pain secondary to lumbar degenerative disc diseases , lumbar spondylosis with facet arthropathy, We have done interventional pain procedures Lumbar epidural steroid injection which helped her low back pain Patients currently on Percocet 5/325 every 6 hours, Neurontin 100 mg twice a day Patient denies any side effects of the medication, denies excessive drowsiness or sleepiness, denies suicidal ideation, and reports that the current pain medication is helping to control the pain and improve activity of daily living Patient denies any motor or sensory deficit , patient denies any fever or night sweats, denies any change in the bowel movements or urination, but she reported that currently her pain level increased significantly, and interfering with her quality of life Physical Examinations : 1-Constitutional : Cooperative , not in acute distress . 2-HEENT : nech ; supple , no Lymphadenopathy , no Thyromegaly , normal thyroid size . eyes : no ptosis , no icterus, no photophobia . ENT : normal of hearing , normal oropharynx , no Thrush . 3- Respiratory : Chest clear to auscultations Bilaterally , no wheezing , no Rhonchi . 4- Cardiovascular : regular rate and rhythem , S1 , S2 , no S3 , no S4. 5- Gastrointestinal : abdomen soft no tenderness , bowel sounds positive all four quadrents , no organomegally . 6- Genitourinary : Defferred . 7- neurologic: Cranial nerve II to XII intact , no focal neurological deffecit . 8- Psychatric: alert , oriented X 3 , appropriate affect , intact judgment and insight . 9- Lymphatic : no Lymphadenopathy . 10- Musculoskeltal : exams of the Lumber spine =motor strength lower extremities ,thigh and legs .5/5 deep tendon reflexes : normal Knee Jerk , normal ankle Jerk . lumber facet Loading Test positive strait leg raising test positive at 30 degree , RT ,LT , Fabere test positive RT and positive LT . Range of motion: Range of motion in flexion of the lumbar spine 30 degrees Range of motion range of motion of extension of the lumbar spine 10 Assessment and plan = Chronic low back pain secondary to lumbar degenerative disc disease , lumbar spondylosis with facet arthropathy without myelopathy chronic and current use of high-risk medication (Opioids). The patient was counseled about risk of opioid use, psychological risk associated with opioids and was orally counseled to not overuse , divert,or sell dictations to take medications as prescribed only , and to restore medication in safe location , the patient counseled against driving while using narcotic medications , and also not to use alcohol or any illicit recreational drugs, patient's verbalized understanding that the lack of compliance will result in failure to renew narcotic prescription and possible discharge from the clinic - diagnoses, prognosis, and treatment options including but not limited to physical therapy, surgical interventions, interventional therapies , and medication management including narcotics and adjuvant medication were discussed with the patient and all the questions answered Prescription refill for Percocet 5/325 every 6 hours dispense 120 with one refill on Neurontin 100 mg twice a day dispense 60 with 1 refill and patient could benefit from lumbar epidural steroid injections under fluoroscopy guidance procedure risks and benefits, alternative discussed with the patient she agreed with proceeding Objective - Vital Signs Vital signs: Vital Signs Temp Pulse Resp 18 08/15/17 13:54 BP 123/59 08/15/17 13:54 Pulse Ox 97 08/15/17 13:54
== END | disposition home or self-care (01) ==
LOC: PNWHC3 12:40
PROVIDERS: ATTEND Specialist
DX: G89.29 Other chronic pain (principal); M51.36 Other intervertebral disc degeneration, lumbar region; M47.816 Spondylosis without myelopathy or radiculopathy, lumbar region; M46.96 Unspecified inflammatory spondylopathy, lumbar region; Z87.891 Personal history of nicotine dependence; Z79.891 Long term (current) use of opiate analgesic; Z79.899 Other long term (current) drug therapy
CPT/HCPCS: 99211

== ENCOUNTER → 2017-10-18 | Day surgery (SDC) | payer MEDICARE ==
[2017-10-15 13:33] VITALS: BMI 33.3
[~2017-10-18] MED LIST changes: +IV FLUID CONTINUATION 1,000 ML IV ONE; +LACTATED RINGERS 1,000 ML IV SCH; +LIDOCAINE 1% 20 ML VIAL (10MG/ML) FOR IV START INTRADERMA ONE; -Pre Op ABX Message 1 EACH MISC MISCELLANE ONE
[2017-10-18 10:22] VITALS: RESP 16; TEMP 97.5
--- NOTE | 2017-10-18 11:14 | P.PCN ---
Date of Procedure: 10/18/17 Surgeon: Nehemias Banda Pathology: none sent Condition: stable Disposition: PACU Description of Procedure: PREOPERATIVE DIAGNOSIS: 1-Lumbar radiculopathy 2- Lumber Degenerative Disc Diseases. POSTOPERATIVE DIAGNOSIS: 1-Lumbar radiculopathy. 2-Lumber Degenerative Disc Diseases PROCEDURE 1. Lumbar epidural steroid injection under fluoroscopic guidance at the L5-S1 level. 2. Lumbar epidurogram. ANESTHESIA: Local with 1% lidocaine; IV sedation with Versed mg ,and fentanyl EBL: Minimal PROCEDURE INDICATION: The patient with low back pain and radiculitis symptoms unresponsive to conservative treatment. Fluoroscopy was used to optimize visualization of the needle placement and to maximize safety. PROCEDURE DESCRIPTION / TECHNIQUE: The patient was seen and identified in the preoperative area. Risks, benefits , complications including but not limited to infections ,bleeding ,allergic reaction to the medications ,nerve damage and not complete pain relief , and alternatives were discussed with the patient. The patient agreed to proceed with the procedure and signed the consent. IV was started, and vital signs were stable. Patient was taken to the OR and time out was completed. The patient was placed in the prone position on procedure table and a pillow was placed under the abdomen to reduce lumbar lordosis. The lumbosacral area was prepped and draped in the usual sterile fashion with Betadine 3.Patient was closely monitored during the procedure. Conscious sedation was used during the procedure to decrease patients anxiety. Vital signs were monitered during the entire procedure. Using anterior-posterior fluoroscopy, the L5-S1 interlaminar space was identified and the skin over this site was marked and then infiltrated with 1% lidocaine subcutaneously. Subsequently, a 20-gauge Tuohy epidural needle was inserted and advanced toward the epidural space using the Loss of resistance to air technique and guided by AP and lateral fluoroscopy. The correct needle position in the epidural space was verified with the injection of 1 mL of the water soluble contrast dye Omnipaque 180 contrast and observing an excellent epidurogram with the epidural spread of the dye, after negative aspiration for blood and CSF and in the absence of paresthesias. Again after negative aspiration, a 8 ml mixture containing 80 mg of Kenalog and 5 ml of preservative free Normal Saline, and 2 ml of preservative free ropivacaine 0.5% solution was injected and a washout of epidurogram was seen. Needle was withdrawn intact, skin was cleansed, and bandages were applied. patient tolerated procedure well and was transferred to PACU in stable condition. COMPLICATIONS: None
[2017-10-18 11:28] VITALS: BP 137/61
[2017-10-18 11:55] VITALS: PULSE 64
--- NOTE | 2017-10-18 12:01 | FL ---
EXAMINATION TYPE: FL guided pain mgmt statistic DATE OF EXAM: 10/18/2017 FLUOROSCOPY Fluoroscopy time of 12 seconds was used during lumbar spine pain intervention procedure. 2 image/s d ocument/s the procedure.
== END ==
LOC: ORPAIN 09:03
PROVIDERS: ATTEND Anesthesiology
DX: M51.16 Intervertebral disc disorders with radiculopathy, lumbar region (principal); Z88.6 Allergy status to analgesic agent; Z88.5 Allergy status to narcotic agent
CPT/HCPCS: 62323; J2250; J3301; J3010; Q9966; 99152

== ENCOUNTER → 2017-11-23 | Outpatient (CLI) | payer MEDICARE ==
--- NOTE | 2017-11-23 09:22 | US ---
EXAMINATION TYPE: US abdomen complete DATE OF EXAM: 11/23/2017 COMPARISON: CT dated 06/15/2016 CLINICAL HISTORY: N28.1 Cyst of kidney, acquired. EXAM MEASUREMENTS: Liver Length: 10.3 cm Gallbladder Wall: Surgically absent cm CBD: 0.6 cm Spleen: 6.4 cm Right Kidney: 9.1 x 4.1 x 4.2 cm Left Kidney: 10.9 x 6.2 x 7.6 cm Technically difficult study due to midline bowel gas. Pancreas: visualized portions appear unremarkable Liver: wnl Gallbladder: There is increased echogenicity of the hepatic parenchyma with diminished visualization of the portal triads most commonly relating to hepatic steatosis and limiting evaluation for underly ing hepatic masses. CBD: wnl Spleen: wnl Right Kidney: No hydronephrosis or masses seen Left Kidney: large cyst measures 6.6 x 6.2 x 7.2 cm. Upper IVC: wnl Abd Aorta: wnl The intrahepatic portion of the IVC and proximal abdominal aorta are within normal limits. There is no evidence of cholelithiasis. Common bile duct is unremarkable. The visualized portions of the tarango creas are homogenous. The spleen is unremarkable. Kidneys are symmetric and free of hydronephrosis. No renal lesions are seen. IMPRESSION: 1. Redemonstration of a large simple left renal cyst measuring up to 7.2 cm, minimally enlarged from the prior 2017 where this measured 6.9 cm. No new complicating solid nodule or internal septation. 2. Slightly coarsened hepatic echotexture most commonly related to mild hepatic steatosis.
== END ==
LOC: RADUSWWP 07:31
PROVIDERS: ATTEND Internal Medicine
DX: N28.1 Cyst of kidney, acquired (principal); K76.0 Fatty (change of) liver, not elsewhere classified
CPT/HCPCS: 76700

== ENCOUNTER → 2017-12-05 | Outpatient (CLI) | payer MEDICARE ==
[2017-12-05 13:36] VITALS: BP 120/73; PULSE 63; RESP 16
--- NOTE | 2017-12-05 13:49 | P.PN ---
Subjective Progress Note Date: 12/05/17 This is a pleasant 77-year-old lady with history of chronic lower back pain with radiation to both lower extremities. The patient has lumbar degenerative disc disease and lumbar stenosis. She gets significant relief of her pain from the lumbar epidural steroid injections and so far she received 2 epidurals of this year and she wants to go ahead and get another one in January to try to help her through the holiday activities. She still uses 4 pills a day of Percocet 5 mg which helps her through her daily activities such he denies any side effects to it. Today, pt denies new-onset weakness, bowel/bladder incontinence, or any other signs or symptoms of cauda equina syndrome. There are no signs of acute intoxication, and no indications of medication diversion or overuse. In addition to above, 13-point review of systems is also negative for chest pain , shortness of breath, changes in vision, changes in hearing, new onset weakness , abdominal pain, diarrhea, extreme fatigue, malaise, fever, skin changes, homicidal or suicidal ideation, or bowel or bladder incontinence. Vital Signs: Reviewed in EMR Gen: AAOx3, NAD HEENT: PERRLA,hearing grossly normal Pulm: resp unlabored,CTA Heart:S1,S2, No Mur No new changes in the neuro exam of the lower extremities from her baseline. Neuro: CN II-XII grossly intact, Imaging: Reviewed in EMR/chart Assessment: Lumbar spondylosis without myelopathy and lumbar stenosis Obesity Chronic back pain Opioid dependence Plan: 1. Explanation: Opioid and psychological risk scores were reviewed. Diagnoses , prognoses, and multiple treatment options including but not limited to physical therapy, interventional therapies, adjuvant medical therapies, narcotic medication therapies, and surgery were discussed with the patient and all questions were answered to the patient's satisfaction. 2. Opioid agreement: Signed with the patient and the patient is warned not to use opioids while driving or before driving and not to combine opioids with benzodiazepines or alcohol. 3. Counseling: The patient was counseled extensively on SMOKING CESSATION, BODY MASS INDEX, EXERCISE. Specifically, the patient was instructed regarding the importance of smoking cessation, obesity, and exercise in the context of both chronic pain and overall health. 4. Procedures: Scheduled for lumbar epidural steroid injection at the L5-S1 level 5. Consultations: None 6. Investigations: None 7. Medications: Continue Percocet 5 mg 4 times a day plus Neurontin 100 mg twice a day 8. Disposition: Return to the above-mentioned procedure in January and to the clinic in 2 months from now 9. Maps were reviewed and were appropriate. Objective - Vital Signs Vital signs: Vital Signs Temp Pulse 63 12/05/17 13:24 Resp 16 12/05/17 13:24 BP 120/73 12/05/17 13:24 Pulse Ox 96 12/05/17 13:24 Intake & Output 12/04/17 12/05/17 12/05/17 18:59 06:59 18:59 Weight 74.843 kg
== END | disposition home or self-care (01) ==
LOC: PNWHC3 13:11
PROVIDERS: ATTEND Anesthesiology
DX: G89.29 Other chronic pain (principal); M48.061 Spinal stenosis, lumbar region without neurogenic claudication; M47.816 Spondylosis without myelopathy or radiculopathy, lumbar region; E66.9 Obesity, unspecified; F11.20 Opioid dependence, uncomplicated; Z68.32 Body mass index [BMI] 32.0-32.9, adult
CPT/HCPCS: 99211

== ENCOUNTER → 2017-12-10 | Outpatient (CLI) | payer MEDICARE ==
--- NOTE | 2017-12-12 10:40 | MM ---
Reason for exam: screening (asymptomatic). Last mammogram was performed 1 year and 3 months ago. History: Patient is postmenopausal. Family history of premenopausal breast cancer in mother at age 31. Benign excisional biopsy of the left breast, 1996. Taking estrogen for 11 years 2 months beginning at age 59. Physical Findings: A clinical breast exam by your physician is recommended on an annual basis and results should be correlated with mammographic findings. MG 3D Screening Mammo W/Cad Bilateral CC and MLO view(s) were taken. Prior study comparison: August 25, 2016, bilateral MG 3d screening mammo w/cad. May 28, 2013, [facility] DIGITAL LEFT BREAST MAMMOGRAM w/CAD. The breast tissue is heterogeneously dense. This may lower the sensitivity of mammography. No significant changes when compared with prior studies. ASSESSMENT: Benign, BI-RAD 2 RECOMMENDATION: Routine screening mammogram of both breasts in 1 year.
== END ==
LOC: RADMAMWWP 13:29
PROVIDERS: ATTEND Internal Medicine
DX: Z12.31 Encounter for screening mammogram for malignant neoplasm of breast (principal)
CPT/HCPCS: 77063; 77067

== ENCOUNTER 2018-01-01 16:09 | Emergency (ER) | payer MEDICARE ==
[2018-01-01] MEDS ORDERED: SODIUM CHLORIDE 0.9% 1,000 ML IV STA (16:18)
[2018-01-01 16:22] LABS: Glucose,Whole Blood 103 mg/dL (75-99)
--- NOTE | 2018-01-01 16:27 | ED ---
General Adult HPI - General Stated complaint: Fall Time Seen by Provider: 01/01/18 16:18 Source: patient, EMS Mode of arrival: EMS Limitations: no limitations - History of Present Illness Initial comments: Patient is a pleasant 77-year-old female presenting to the emergency department following a fall. Patient states she does frequently have falls. Patient denies being on any blood thinners. Patient states she tripped. Patient does admit to hitting her face. Patient states she was told that she lost consciousness. Patient does admit to feeling a little confused earlier. Patient does not feel confused at this time. Patient complains of mild discomfort of her left periorbital region and left tooth that has come out. Patient also has moderate discomfort of her right knee. Patient states she does have some chronic discomfort there and does have previous knee replacement surgery done. No neck or back pain. No chest or abdominal pain. No dyspnea. - Related Data Home Medications Medication Instructions Recorded Confirmed ALPRAZolam [Xanax] 0.125 mg PO DAILY PRN 07/28/13 01/01/18 Atenolol [Tenormin] 50 mg PO HS 07/28/13 01/01/18 Atorvastatin [Lipitor] 20 mg PO HS 07/28/13 01/01/18 Lansoprazole [Prevacid] 15 mg PO PC-LUNCH 07/28/13 01/01/18 Loratadine [Claritin] 10 mg PO PC-LUNCH 07/28/13 01/01/18 Multivitamins, Thera [Multivitamin] 1 tab PO DAILY 07/28/13 01/01/18 Docusate [Colace] 100 mg PO HS 09/26/13 01/01/18 Sertraline HCl 100 mg PO HS 12/31/13 01/01/18 Biotin 5,000 mcg PO DAILY 01/23/14 01/01/18 amLODIPine [Norvasc] 5 mg PO BID 04/26/15 01/01/18 Olmesartan Medoxomil [Benicar] 40 mg PO DAILY 10/15/17 01/01/18 Previous Rx's Medication Instructions Recorded oxyCODONE HCL/ACETAMINOPHEN 1 tab PO Q6HR PRN 30 Days #120 tab 06/20/17 [Percocet 5-325 mg] Gabapentin [Neurontin] 100 mg PO BID #60 cap 08/15/17 Allergies Allergy/AdvReac Type Severity Reaction Status Date / Time codeine Allergy Rash/Hives Verified 01/01/18 17:04 hydrochlorothiazide Allergy increases Verified 01/01/18 17:04 b/p hydrocodone bitartrate Allergy palpitation Verified 01/01/18 17:04 [From Vicodin] s NSAIDS (Non-Steroidal Allergy increases Verified 01/01/18 17:04 Anti-Inflamma b/p pseudoephedrine HCl Allergy increases Verified 01/01/18 17:04 [From Sudafed] b/p,heart palpitations losartan [Losartan] AdvReac "doesn't Verified 01/01/18 17:04 work on me" sunscreen part in olay cream Allergy Rash/Hives Uncoded 12/05/17 13:22 Review of Systems ROS Statement: Those systems with pertinent positive or pertinent negative responses have been documented in the HPI. ROS Other: All systems not noted in ROS Statement are negative. Constitutional: Denies: fever Eyes: Denies: eye pain ENT: Reports: other (Dental pain). Denies: ear pain Respiratory: Denies: cough, dyspnea Cardiovascular: Denies: chest pain, palpitations Endocrine: Denies: fatigue Gastrointestinal: Denies: abdominal pain Genitourinary: Denies: dysuria Musculoskeletal: Denies: back pain Skin: Denies: rash Neurological: Reports: confusion (Patient felt confused earlier.). Denies: weakness Past Medical History Past Medical History: GERD/Reflux, Hyperlipidemia, Hypertension, Osteoarthritis (OA), Syncope Additional Past Medical History / Comment(s): hiatal hernia, spinal spurs and stenosis, degenerative disks. Cyst on left kidney following with Dr. Villagran History of Any Multi-Drug Resistant Organisms: None Reported Past Surgical History: Appendectomy, Bladder Surgery, Breast Surgery, Cholecystectomy, Hysterectomy, Joint Replacement, Orthopedic Surgery, Tubal Ligation Additional Past Surgical History / Comment(s): tomas shoulder surgery, hemorrhoidectomy, tomas cataract with lens implant,. rt knee replacement, lt breast lumpectomy, pain clinic procedures, Past Anesthesia/Blood Transfusion Reactions: Previous Problems w/ Anesthesia Additional Past Anesthesia/Blood Transfusion Reaction / Comment(s): blood pressure went very low w/past surgery Past Psychological History: Anxiety Additional Psychological History / Comment(s): stress related Smoking Status: Former smoker Past Alcohol Use History: None Reported Additional Past Alcohol Use History / Comment(s): quit smoking approx 1998, started smoking at age 13(1956)-1-1 1/2 ppd Past Drug Use History: None Reported - Past Family History Mother Family Medical History: Cancer Additional Family Medical History / Comment(s): breast, uterine ca Father Family Medical History: Cancer Additional Family Medical History / Comment(s): colon General Exam Limitations: no limitations General appearance: alert, in no apparent distress Head exam: Present: other (Abrasions and soft tissue swelling left lateral periorbital region.) Eye exam: Present: normal appearance, PERRL, EOMI. Absent: nystagmus ENT exam: Present: other (Left upper frontal incisor missing) Neck exam: Present: normal inspection. Absent: tenderness Respiratory exam: Present: normal lung sounds bilaterally. Absent: chest wall tenderness Cardiovascular Exam: Present: regular rate, normal rhythm GI/Abdominal exam: Present: soft, normal bowel sounds. Absent: distended, tenderness, guarding, rebound, rigid Extremities exam: Present: tenderness (Moderate tenderness right knee. Distally the extremity is neurovascular intact) Back exam: Absent: vertebral tenderness Neurological exam: Present: alert, oriented X3, CN II-XII intact. Absent: motor sensory deficit Expanded Neurological exam: Present: protecting the airway Patient oriented to: Present: person, place, time Speech: Present: fluid speech Cranial nerves: EOM's Intact: Normal, Facial Sensation: Normal Sensory exam: Upper Extremity Light Touch: Normal, Lower Extremity Light Touch: Normal Motor strength exam: RUE: 5, LUE: 5, RLE: 5, LLE: 5 Eye Response: (4) open spontaneously Motor Response: (6) obeys commands Verbal Response: (5) oriented Psychiatric exam: Present: normal affect, normal mood Skin exam: Present: abrasion (Left maxillary and left periorbital) Course - Reevaluation(s) Reevaluation #1: 01/01/18 16:20 Case was discussed with trauma surgeon, Dr. Mccloud. Patient's tooth was placed back in the container of milk that she brought it in and oral maxillary facial surgeon was paged. 01/01/18 17:04 Case was discussed with Dr. Dunn who states secondary to tooth not completely fitting into socket it is not viable. Tooth is only able to be placed approximately 75% into the socket. Tooth is not stable. EKG Findings - EKG Comments: EKG Findings:: Sinus bradycardia 59. SC 174. QRS 102. QT 458. QTC 453. Left axis. Incomplete right bundle-branch block. No acute ST change. Medical Decision Making - Medical Decision Making Patient reevaluated and resting comfortably at bedside. Patient refuses pain medication and is requesting discharge home. Patient and family updated on results and need for follow-up. Patient states last tetanus immunization was less than 10 years. - Lab Data Result diagrams: 01/01/18 17:33 01/01/18 17:33 Lab Results 01/01/18 01/01/18 01/01/18 Range/Units 16:13 17:33 17:33 WBC 8.0 (3.8-10.6) k/uL RBC 4.93 (3.80-5.40) m/uL Hgb 15.1 (11.4-16.0) gm/dL Hct 46.0 (34.0-46.0) % MCV 93.4 (80.0-100.0) fL MCH 30.6 (25.0-35.0) pg MCHC 32.7 (31.0-37.0) g/dL RDW 13.8 (11.5-15.5) % Plt Count 241 (150-450) k/uL Neutrophils % 47 % Lymphocytes % 39 % Monocytes % 8 % Eosinophils % 3 % Basophils % 1 % Neutrophils # 3.7 (1.3-7.7) k/uL Lymphocytes # 3.1 (1.0-4.8) k/uL Monocytes # 0.7 (0-1.0) k/uL Eosinophils # 0.2 (0-0.7) k/uL Basophils # 0.0 (0-0.2) k/uL PT 9.5 (9.0-12.0) sec INR 1.0 (<1.2) APTT 22.8 (22.0-30.0) sec Sodium (137-145) mmol/L Potassium (3.5-5.1) mmol/L Chloride (98-107) mmol/L Carbon Dioxide (22-30) mmol/L Anion Gap mmol/L BUN (7-17) mg/dL Creatinine (0.52-1.04) mg/dL Est GFR (CKD-EPI)AfAm (>60 ml/min/1.73 sqM) Est GFR (CKD-EPI)NonAf (>60 ml/min/1.73 sqM) Glucose (74-99) mg/dL POC Glucose (mg/dL) 103 H (75-99) mg/dL POC Glu [employer] Marcin Bullard Plasma Lactic Acid Jairo (0.7-2.0) mmol/L Calcium (8.4-10.2) mg/dL Total Bilirubin (0.2-1.3) mg/dL AST (14-36) U/L ALT (9-52) U/L Alkaline Phosphatase (38-126) U/L Total Creatine Kinase (30-135) U/L CK-MB (CK-2) (0.0-2.4) ng/mL CK-MB (CK-2) Rel Index Troponin I (0.000-0.034) ng/mL Total Protein (6.3-8.2) g/dL Albumin (3.5-5.0) g/dL Amylase (30-110) U/L Lipase (23-300) U/L Serum Alcohol mg/dL Blood Type Blood Type Recheck Antibody Screen Spec Expiration Date 01/01/18 01/01/18 01/01/18 Range/Units 17:33 17:33 17:33 WBC (3.8-10.6) k/uL RBC (3.80-5.40) m/uL Hgb (11.4-16.0) gm/dL Hct (34.0-46.0) % MCV (80.0-100.0) fL MCH (25.0-35.0) pg MCHC (31.0-37.0) g/dL RDW (11.5-15.5) % Plt Count (150-450) k/uL Neutrophils % % Lymphocytes % % Monocytes % % Eosinophils % % Basophils % % Neutrophils # (1.3-7.7) k/uL Lymphocytes # (1.0-4.8) k/uL Monocytes # (0-1.0) k/uL Eosinophils # (0-0.7) k/uL Basophils # (0-0.2) k/uL PT (9.0-12.0) sec INR (<1.2) APTT (22.0-30.0) sec Sodium 140 (137-145) mmol/L Potassium 4.0 (3.5-5.1) mmol/L Chloride 102 (98-107) mmol/L Carbon Dioxide 30 (22-30) mmol/L Anion Gap 8 mmol/L BUN 16 (7-17) mg/dL Creatinine 0.94 (0.52-1.04) mg/dL Est GFR (CKD-EPI)AfAm 67 (>60 ml/min/1.73 sqM) Est GFR (CKD-EPI)NonAf 58 (>60 ml/min/1.73 sqM) Glucose 98 (74-99) mg/dL POC Glucose (mg/dL) (75-99) mg/dL POC Glu [employer] ID Plasma Lactic Acid Jairo 1.2 (0.7-2.0) mmol/L Calcium 10.2 (8.4-10.2) mg/dL Total Bilirubin 0.8 (0.2-1.3) mg/dL AST 38 H (14-36) U/L ALT 31 (9-52) U/L Alkaline Phosphatase 113 (38-126) U/L Total Creatine Kinase 108 (30-135) U/L CK-MB (CK-2) 1.7 (0.0-2.4) ng/mL CK-MB (CK-2) Rel Index 1.6 Troponin I <0.012 (0.000-0.034) ng/mL Total Protein 7.6 (6.3-8.2) g/dL Albumin 4.5 (3.5-5.0) g/dL Amylase 49 (30-110) U/L Lipase 63 (23-300) U/L Serum Alcohol <10 mg/dL Blood Type Blood Type Recheck Antibody Screen Spec Expiration Date 01/01/18 Range/Units 17:33 WBC (3.8-10.6) k/uL RBC (3.80-5.40) m/uL Hgb (11.4-16.0) gm/dL Hct (34.0-46.0) % MCV (80.0-100.0) fL MCH (25.0-35.0) pg MCHC (31.0-37.0) g/dL RDW (11.5-15.5) % Plt Count (150-450) k/uL Neutrophils % % Lymphocytes % % Monocytes % % Eosinophils % % Basophils % % Neutrophils # (1.3-7.7) k/uL Lymphocytes # (1.0-4.8) k/uL Monocytes # (0-1.0) k/uL Eosinophils # (0-0.7) k/uL Basophils # (0-0.2) k/uL PT (9.0-12.0) sec INR (<1.2) APTT (22.0-30.0) sec Sodium (137-145) mmol/L Potassium (3.5-5.1) mmol/L Chloride (98-107) mmol/L Carbon Dioxide (22-30) mmol/L Anion Gap mmol/L BUN (7-17) mg/dL Creatinine (0.52-1.04) mg/dL Est GFR (CKD-EPI)AfAm (>60 ml/min/1.73 sqM) Est GFR (CKD-EPI)NonAf (>60 ml/min/1.73 sqM) Glucose (74-99) mg/dL POC Glucose (mg/dL) (75-99) mg/dL POC Glu Director [employer] ID Plasma Lactic Acid Jairo (0.7-2.0) mmol/L Calcium (8.4-10.2) mg/dL Total Bilirubin (0.2-1.3) mg/dL AST (14-36) U/L ALT (9-52) U/L Alkaline Phosphatase (38-126) U/L Total Creatine Kinase (30-135) U/L CK-MB (CK-2) (0.0-2.4) ng/mL CK-MB (CK-2) Rel Index Troponin I (0.000-0.034) ng/mL Total Protein (6.3-8.2) g/dL Albumin (3.5-5.0) g/dL Amylase (30-110) U/L Lipase (23-300) U/L Serum Alcohol mg/dL Blood Type O Positive Blood Type Recheck CABO Indicated Antibody Screen NEGATIVE Spec Expiration Date 01/04/2018 - 2333 - Radiology Data Radiology results: report reviewed (Computed tomography scan of the brain and cervical spine and facial bones reveals no acute process.), image reviewed ( Chest x-ray, knee x-ray, and pelvis x-ray shows no acute process.) Disposition Clinical Impression: Fall, Tooth avulsion, Head injury Disposition: HOME SELF-CARE Condition: Stable Instructions: Fall Prevention for Older Adults (ED), Acute Dental Trauma (ED) Additional Instructions: Please follow-up with primary care physician and dentist or Dr. Dunn in the next day or 2 for recheck. Return for vomiting, confusion, coordination problems, change in mental status, worsening or changing symptoms or other concerns. Is patient prescribed a controlled substance at d/c from ED?: No Referrals: Luh Villagran MD [Primary Care Provider] - 1-2 days Kevin Dunn DDS [STAFF PHYSICIAN] - 1-2 days Time of Disposition: 18:28
--- NOTE | 2018-01-01 16:49 | XR ---
PROCEDURE: XR pelvis AP view DATE AND TIME: 01/01/2018 4:31 PM CLINICAL INDICATION: Pain,Trauma TECHNIQUE: AP pelvis COMPARISON: None FINDINGS: There is mild limitation of visualization, but there is no evidence of fracture or malalign ment. The soft tissues are unremarkable. IMPRESSION: NO DEFINITE ACUTE PROCESS.
--- NOTE | 2018-01-01 16:53 | XR ---
EXAMINATION: XR chest 1V portable DATE AND TIME: 01/01/2018 4:31 PM CLINICAL INDICATION: trauma TECHNIQUE: AP upright portable COMPARISON: 04/26/1959 FINDINGS: The overlying soft tissues are prominent. The hemidiaphragms are both elevated, greater than the righ t. Given these factors, the study is radiographically negative for pulmonary edema, although prominen ce to the lung markings are noted this is likely due to pulmonary vasculature crowding from the facto rs above. There is no major atelectasis or focal consolidation. The pleural spaces are negative. The cardiac silhouette appears mildly enlarged. The remainder of the mediastinal silhouette is unremarkable. The skeletal structures are negative for fracture or malalignment. Extrathoracic soft tissues are negative for acute findings. IMPRESSION: NO DEFINITE ACUTE PROCESS.
--- NOTE | 2018-01-01 17:29 | CT ---
EXAMINATION TYPE: CT brain kade longoria con DATE OF EXAM: 01/01/2018 COMPARISON: 09/29/2013 HISTORY: Fall, left sided facial injuries CT DLP: DLP: 1619.7 * brain and FB scanned as one exposure* mGycm Automated exposure control for dose reduction was used. TECHNIQUE: CT scan of the head and cervical spine are performed without contrast. FINDINGS: There is no acute intracranial hemorrhage, mass effect, or midline shift identified. The ventricles and sulci are within normal limits in size. The globes are intact and the visualized sin uses are clear. Cervical spine is visualized in its entirety from C1 through upper thoracic levels and is negative fo r fracture. There are advanced cervical spondylosis changes at all levels, most pronounced at C5-6. There is dege nerative retrolisthesis of C4 with respect to C3, and C7 with respect to C6. Prevertebral soft tissu es appear within normal limits. The C1-C2 articulation is unremarkable. IMPRESSION: 1. There is no acute fracture or dislocation evident in the cervical spine. 2. No acute intracranial hemorrhage, mass effect, or midline shift is seen.
--- NOTE | 2018-01-01 17:34 | CT ---
EXAMINATION TYPE: CT facial bones wo con DATE OF EXAM: 01/01/2018 COMPARISON: None HISTORY: Fall, left sided facial injuries CT DLP: DLP: 1619.7 * brain and FB scanned as one exposure* mGycm Automated exposure control for dose reduction was used. TECHNIQUE: CT scan of the sinuses is performed without contrast, axial images are obtained, coronal r eformatted images are also reviewed. FINDINGS: There is no fracture or malalignment. Soft tissue swelling is noted over the left orbit; it is all preseptal in position. The paranasal sinuses including the frontal, ethmoid, sphenoid, and maxillary sinuses bilaterally ar e well-aerated without abnormal opacification. The ostiomeatal complex is patent bilaterally on the coronal images. Visualized portion of mastoid air cells show no abnormal opacification. The globes a re intact bilaterally. IMPRESSION: SOFT TISSUE SWELLING.
[2018-01-01 17:39] LABS: Basophils % (A) 1 %; Eosinophils # (A) 0.2 k/uL (0-0.7); Eosinophils % (A) 3 %; HGB 15.1 gm/dL (11.4-16.0); Lymphocytes # (A) 3.1 k/uL (1.0-4.8); Lymphocytes % (A) 39 %; MCH 30.6 pg (25.0-35.0); MCHC 32.7 g/dL (31.0-37.0); MCV 93.4 fL (80.0-100.0); Mean Platelet Volume 6.7; Monocytes # (A) 0.7 k/uL (0-1.0); Monocytes % (A) 8 %; Neutrophils # (A) 3.7 k/uL (1.3-7.7); Neutrophils % (A) 47 %; Platelet Count 241 k/uL (150-450); RBC 4.93 m/uL (3.80-5.40); RDW 13.8 % (11.5-15.5)
[2018-01-01 17:45] LABS: ALT 31 U/L (9-52); AST 38 U/L (14-36); Albumin 4.5 g/dL (3.5-5.0); Alcohol <10 mg/dL; Alkaline Phosphatase 113 U/L (38-126); Amylase 49 U/L (30-110); Anion Gap 8 mmol/L; Blood Urea Nitrogen 16 mg/dL (7-17); Calcium 10.2 mg/dL (8.4-10.2); Carbon Dioxide 30 mmol/L (22-30); Chloride 102 mmol/L (98-107); Glucose 98 mg/dL (74-99); Lipase 63 U/L (23-300); Sodium 140 mmol/L (137-145); Total Bilirubin 0.8 mg/dL (0.2-1.3); Total Protein 7.6 g/dL (6.3-8.2)
[2018-01-01 17:46] LABS: Creatine Kinase 108 U/L (30-135)
[2018-01-01 17:48] LABS: Partial Thromboplastin Time 22.8 sec (22.0-30.0); Prothrombin Time 9.5 sec (9.0-12.0)
--- NOTE | 2018-01-01 17:58 | XR ---
PROCEDURE: XR knee complete bilateral 6 total views DATE AND TIME: 01/01/2018 4:58 PM CLINICAL INDICATION: [facility] Pain TECHNIQUE: Department protocol. COMPARISON: 09/24/2013 RIGHT KNEE FINDINGS: The TKR is intact without periprosthesis lucencies. There is no fracture or jessica lignment. The soft tissues are unremarkable. LEFT KNEE FINDINGS: There is no fracture or malalignment. The soft tissues are unremarkable. There ar e tricompartmental osteoarthritis changes, with the joint space narrowing and osteophytic spur format ion most prominent medially and anteriorly. IMPRESSION: NO ACUTE PROCESS, BILATERAL KNEE RADIOGRAPHIC EXAMINATION.
[2018-01-01 17:59] LABS: Creatine Kinase MB 1.7 ng/mL (0.0-2.4); Troponin I <0.012 ng/mL (0.000-0.034)
== END 2018-01-01 18:48 | disposition home or self-care (01) ==
LOC: EC 16:09
DX: S03.2XXA Dislocation of tooth, initial encounter (principal); S00.212A Abrasion of left eyelid and periocular area, initial encounter; S00.81XA Abrasion of other part of head, initial encounter; R40.2142 Coma scale, eyes open, spontaneous, at arrival to emergency department; R40.2252 Coma scale, best verbal response, oriented, at arrival to emergency department; R40.2362 Coma scale, best motor response, obeys commands, at arrival to emergency department; K21.9 Gastro-esophageal reflux disease without esophagitis; E78.5 Hyperlipidemia, unspecified; I10 Essential (primary) hypertension; M19.90 Unspecified osteoarthritis, unspecified site; F41.9 Anxiety disorder, unspecified; Z96.651 Presence of right artificial knee joint; Z87.891 Personal history of nicotine dependence; Z53.29 Procedure and treatment not carried out because of patient's decision for other reasons; Z79.899 Other long term (current) drug therapy; Z88.5 Allergy status to narcotic agent; Z88.8 Allergy status to other drugs, medicaments and biological substances; Z88.6 Allergy status to analgesic agent; Z91.048 Other nonmedicinal substance allergy status; W01.10XA Fall on same level from slipping, tripping and stumbling with subsequent striking against unspecified object, initial encounter
CPT/HCPCS: 99285; 96360; 36415; 93005; 86900; 86901; 80053; 82150; 82550; 82553; 83605; 83690; 84484; 85025; 85610; 85730; 86850; 73562; 72170; 71045; 72125; 70486; 70450; G0480; 80320

== ENCOUNTER 2018-01-22 07:34 | Day surgery (SDC) | payer MEDICARE ==
[2018-01-21 08:47] VITALS: BMI 32.7
[~2018-01-22 07:34] MED LIST changes: -IV FLUID CONTINUATION 1,000 ML IV ONE; -LACTATED RINGERS 1,000 ML IV SCH; -LIDOCAINE 1% 20 ML VIAL (10MG/ML) FOR IV START INTRADERMA ONE; +SODIUM CHLORIDE 0.9% 500 ML 500 ML IV SCH
[2018-01-22 07:56] VITALS: TEMP 97.5
[2018-01-22] MEDS ORDERED: LIDOCAINE 1% 20 ML VIAL (10MG/ML) FOR IV START INTRADERMA ONE (08:06)
[2018-01-22] MEDS ORDERED: LACTATED RINGERS 1,000 ML IV ONE (08:06)
[2018-01-22] MEDS ORDERED: IV FLUID CONTINUATION 500 ML IV ONE (09:02)
[2018-01-22 09:17] VITALS: BP 135/66; PULSE 56; RESP 16
--- NOTE | 2018-01-22 09:23 | P.PCN ---
Date of Procedure: 01/22/18 Procedure(s) Performed: PREOPERATIVE DIAGNOSIS: 1- Lumbar Degenerative Disc Diseases 2-Lumbar spondylosis with Facet arthropathy without myelopathy. POSTOPERATIVE DIAGNOSIS: 1-Lumber Degenerative Disc Diseases 2-Lumbar spondylosis with Facet arthropathy without myelopathy PROCEDURE 1. Lumbar epidural steroid injection under fluoroscopic guidance at the L5-S1 level. 2. Lumbar epidurogram. ANESTHESIA: Local with 1% lidocaine 3 ml and , moderate sedation with intravenous Versed 2 mg ,and fentanyle 100 Mcg EBL: Minimal PROCEDURE INDICATION: The patient with low back pain and radiculitis symptoms unresponsive to conservative treatment. Fluoroscopy was used to optimize visualization of the needle placement and to maximize safety. PROCEDURE DESCRIPTION / TECHNIQUE: The patient was seen and identified in the preoperative area. Risks, benefits , complications including but not limited to infections ,bleeding ,allergic reaction to the medications ,nerve damage and not complete pain releife , and alternatives were discussed with the patient. The patient agreed to proceed with the procedure and signed the consent. IV was started, and vital signs were stable. Patient was taken to the OR and time out was completed. The patient was placed in the prone position on procedure table and a pillow was placed under the abdomen to reduce lumbar lordosis. The lumbosacral area was prepped and draped in the usual sterile fashion.ere closely monitored during the procedure. Conscious sedation was used during the procedure to decrease patients anxiety. Vital signs was monitered during the entire procedure. Using anterior-posterior fluoroscopy, the L5-S1 interlaminar space was identified and the skin over this site was marked and then infiltrated with 1% lidocaine subcutaneously. Subsequently, a 20-gauge Tuohy epidural needle was inserted and advanced toward the epidural space using the ``Loss of resistance technique and guided by AP and lateral fluoroscopy. The correct needle position in the epidural space was verified with the injection of 2 mL of the water soluble contrast dye Isovue 200 contrast and observing an excellent epidurogram with the epidural spread of the dye, after negative aspiration for blood and CSF and in the absence of paresthesias. Again after negative aspiration, a 6 ml mixture containing 40 mg of Depo-medrol , and 2 ml of preservative free Normal Saline, and 2 ml of preservative free lidocaine 1% solution was injected and a washout of epidurogram was seen. Needle was withdrawn intact, skin was cleansed, and bandages were applied. COMPLICATIONS: None DISPOSITION / PLANS: The patient was placed in a supine position and transferred to the recovery area in a stable condition for observation. There was no evidence of lower extremity motor or sensory deficit after the procedure. Patient was discharged from the recovery room after meeting discharge criteria. Home discharge instructions were given to the patient by the staff. The patient was reexamined prior to discharge. The patient will schedule a follow up in the clinic in 2-4 weeks.
--- NOTE | 2018-01-22 11:15 | FL ---
EXAMINATION TYPE: FL guided pain mgmt statistic DATE OF EXAM: 01/22/2018 FLUOROSCOPY Fluoroscopy time of 3 seconds was used during epidural injection. 1 image/s document/s the procedure .
== END 2018-01-22 09:34 | disposition home or self-care (01) ==
LOC: ORPAIN 07:34
PROVIDERS: ATTEND Specialist
DX: M47.816 Spondylosis without myelopathy or radiculopathy, lumbar region (principal); M51.36 Other intervertebral disc degeneration, lumbar region; M54.10 Radiculopathy, site unspecified
CPT/HCPCS: 62323; J2250; J1030; J3010; Q9966

== ENCOUNTER → 2018-02-25 | Outpatient (CLI) | payer MEDICARE ==
[2018-02-25 11:56] VITALS: BP 118/74; PULSE 73; RESP 16
--- NOTE | 2018-02-25 12:48 | P.PN ---
Subjective Progress Note Date: 02/25/18 This is follow-up visit for this patient with a history of severe and chronic low back pain secondary to lumbar degenerative disc disease, lumbar spondylosis with facet arthropathy, We have done an interventional pain procedure lumbar epidural steroid injection , she continues to have severe low back pain with radiation to the buttock The patient currently on Percocet 5/325 every 6 hours, Neurontin 100 mg twice a day Patient denies any side effect of the medication , patient denies any excessive drowsiness or sleepiness, patient denies any suicidal ideation, Patient reported that the current medication is helping to control the pain and improve the activity of daily livings, Patient denies any motor or sensory deficit, denies any change in the bowel movement or urination, patient denies any fever or night sweats. Patient here today for follow-up visit and medication refill Physical Examinations : 1-Constitutiona : Cooperative , not in acute distress . 2-HEENT : nech ; supple , no Lymphadenopathy , normal thyroid size . eyes : no ptosis , no icterus , no photophobia . ENT : normal of hearing , normal oropharynx , no Thrush . 3- Respiratory : Chest clear to auscultations Bilaterally , no wheezing , no Rhonchi . 4- Cardiovascular : regular rate and rhythem , S1 , S2 , no S3 , no S4. 5- Gastrointestinal : abdomen soft no tenderness , bowel sounds , no organomegally . 6- Genitourinary : Defferred . 7- neurologic : Cranial nerve II to XII intact , no focal neurological deffecit . 8-psychatric : alert , oriented X 3 , appropriate affect , intact judgment and insight . 9-Lymphatic : no Lymphadenopathy . 10- musculoskeltal : Lumber spine moter stegnth lower extremities ,thigh and legs 5/5 Right side , 5/5 Left side deep tendon reflexes : normal Knee Jerk , normal ankle Jerk positive lumber facet Loading Test Range of motion of the lumbar spine Flexion 30 degrees, extension 10 degrees strait leg raising test , positive at 30 degree Fabere test positive RT and positive LT . Assessment and plan= chronic low back pain secondary to lumbar degenerative disc disease , lumbar spondylosis with lumbar facet arthropathy . chronic and current use of high-risk medication (opioids) Patient denies any side effects of the current pain medication and the current treatment/medication helping the patient to do activity of daily living , Diagnoses, prognosis, treatment options, including but not limited to physical therapy, medication management, interventional therapies, and surgery, were discussed with the patient All the questions answered The narcotic consent was signed and patient agreed and understood the side effects and complications of opioid treatment. Patient signed the narcotic agreement, and was orally counseled, not to overuse, not to abuse, not to Divert , not tp sell pain medication, and to take it as prescribed only, Patient was counseled not to drive or operate heavy equipment while using narcotic medication, and advised not to use alcohol or any Illicit drugs while using the narcotis, understanding that lack of compliance with any of the above instructions, will likely to cause discharge from, the pain service, not to renew his narcotic prescriptions MAPS Reviwed and it was apropriate . Medication managements= patient will be given prescription refills for Percocet 5/325 every 6 hours dispense 120 with one refill, and Neurontin 100 mg twice a day dispense 60 with 3 refills Patient continued to have severe low back pain after lumbar epidural steroid injections, currently most of the pain coming from the facetogenic component patient will be scheduled to have diagnostic medial branch block lumbar area at L3-4 /L4 5/L5-S1, and she had a good result and we will proceed with the radiofrequency ablation of the medial branch procedure risk and benefit conative discussed with the patient she agreed with the preceding , PQRS Measure Charge Sheet Measure #130: Documentation of Current Meds in Medical Chart: Patient's medications documented in chart Measure #226: Tobacco Use: Screen & Cessation Intervention: Pt not a tobacco user Measure #111: Pneumonia Vaccination: Pneumococcal vaccine administered or previously received Measure #47: Advance Care Plan: Advance care planning discussed & documented, pt chose/unable to give Measure #412: Opioid Treatment Agreement: Documented signed opioid trtmnt agreemnt min once during opioid trtmnt Measure #408: Opioid Therapy Follow-up Evaluation: Patient had f/u eval minimum every 3 months during opioid therapy Measure #317: Preventitive Care & Scrn High Bld Press & F/U: Normal blood pressure, f/u not required Measure #128: Body Mass Index (BMI) Screening & Follow-up: BMI documented ABOVE normal parameters - f/u documented Measure #131: Pain Assessment & Follow-up: Pain positive & plan documented, Follow-up scheduled Measure #431: Unhealthy Alcohol Use Preventative Care & Scrn: Patient not identified as an unhealthy alcohol user PQRS Narrative: - Controlled Substance Measures Is patient prescribed a controlled substance at discharge?: Yes When asked, does pt state using other controlled substances?: No If prescribed controlled substance>3 days was MAPS reviewed?: Yes If Rx opioid, was Start Talking consent form obtained?: Yes If opioid is for acute pain is fill amount 7 days or less?: No Was information provided regarding opioid addiction?: Yes Objective - Vital Signs Vital signs: Vital Signs Temp Pulse 73 02/25/18 11:52 Resp 16 02/25/18 11:52 BP 118/74 02/25/18 11:52 Pulse Ox Intake & Output 02/24/18 02/25/18 02/25/18 18:59 06:59 18:59 Weight 74.843 kg
== END ==
LOC: PNWHC3 11:38
PROVIDERS: ATTEND Specialist
DX: G89.29 Other chronic pain (principal); M51.36 Other intervertebral disc degeneration, lumbar region; M47.816 Spondylosis without myelopathy or radiculopathy, lumbar region; M46.96 Unspecified inflammatory spondylopathy, lumbar region; Z79.891 Long term (current) use of opiate analgesic; Z79.899 Other long term (current) drug therapy
CPT/HCPCS: 99211

== ENCOUNTER 2018-03-06 14:21 | Emergency (ER) | payer MEDICARE ==
[2018-03-06 14:28] VITALS: RESP 18
[2018-03-06] MEDS ORDERED: SODIUM CHLORIDE 0.9% 500 ML 500 ML IV ONE (14:36)
[2018-03-06 15:01] LABS: Basophils # (A) 0.1 k/uL (0-0.2); Basophils % (A) 1 %; Eosinophils # (A) 0.2 k/uL (0-0.7); Eosinophils % (A) 2 %; HCT 42.1 % (34.0-46.0); HGB 13.5 gm/dL (11.4-16.0); Lymphocytes # (A) 2.1 k/uL (1.0-4.8); Lymphocytes % (A) 25 %; MCH 30.3 pg (25.0-35.0); MCHC 32.1 g/dL (31.0-37.0); MCV 94.1 fL (80.0-100.0); Mean Platelet Volume 6.9; Monocytes # (A) 0.8 k/uL (0-1.0); Monocytes % (A) 10 %; Neutrophils # (A) 5.1 k/uL (1.3-7.7); Neutrophils % (A) 60 %; Platelet Count 245 k/uL (150-450); RBC 4.48 m/uL (3.80-5.40); RDW 13.3 % (11.5-15.5); WBC 8.5 k/uL (3.8-10.6)
[2018-03-06 15:05] LABS: Glucose,Whole Blood 85 mg/dL (75-99)
[2018-03-06 15:11] LABS: INR 0.9 (<1.2); Partial Thromboplastin Time 22.7 sec (22.0-30.0); Prothrombin Time 9.8 sec (9.0-12.0)
[2018-03-06 15:12] LABS: Albumin 4.1 g/dL (3.5-5.0); Calcium 9.9 mg/dL (8.4-10.2); Potassium 4.9 mmol/L (3.5-5.1); Total Protein 6.7 g/dL (6.3-8.2)
--- NOTE | 2018-03-06 15:14 | ED ---
General Adult HPI - General Chief complaint: Altered Mental Status Stated complaint: altered LOC Time Seen by Provider: 03/06/18 14:29 Source: patient, EMS, RN notes reviewed, old records reviewed Mode of arrival: EMS Limitations: no limitations - History of Present Illness Initial comments: 77-year-old female presents for evaluation of worsening confusion and altered mental status. Patient is alert and oriented time my evaluation, she is able to give history other her responses are somewhat delayed. She states she had a fall in December and has had worsening confusion since that time. She states that over the past 3 days this has significantly worsened. She states her primary care physician did order MRI but this has not been taken today. Patient denies fever or chills. Denies headache. Denies vision changes. Denies focal numbness or weakness. Denies chest pain or abdominal pain. Denies vomiting or diarrhea. - Related Data Home Medications Medication Instructions Recorded Confirmed Atenolol [Tenormin] 50 mg PO HS 07/28/13 03/06/18 Atorvastatin [Lipitor] 20 mg PO HS 07/28/13 03/06/18 Lansoprazole [Prevacid] 15 mg PO PC-LUNCH 07/28/13 03/06/18 Sertraline HCl 100 mg PO HS 12/31/13 03/06/18 amLODIPine [Norvasc] 5 mg PO BID 04/26/15 03/06/18 Olmesartan Medoxomil [Benicar] 40 mg PO DAILY 10/15/17 03/06/18 Previous Rx's Medication Instructions Recorded Gabapentin [Neurontin] 100 mg PO BID #60 cap 02/25/18 oxyCODONE HCL/ACETAMINOPHEN 1 tab PO Q6HR PRN 30 Days #120 tab 02/25/18 [Percocet 5-325 mg] Allergies Allergy/AdvReac Type Severity Reaction Status Date / Time codeine Allergy Rash/Hives Verified 03/06/18 15:29 hydrochlorothiazide Allergy increases Verified 03/06/18 15:29 b/p hydrocodone bitartrate Allergy palpitation Verified 03/06/18 15:29 [From Vicodin] s NSAIDS (Non-Steroidal Allergy increases Verified 03/06/18 15:29 Anti-Inflamma b/p pseudoephedrine HCl Allergy increases Verified 03/06/18 15:29 [From Sudafed] b/p,heart palpitations losartan [Losartan] AdvReac "doesn't Verified 03/06/18 15:29 work on me" sunscreen part in olay cream Allergy Rash/Hives Uncoded 03/06/18 14:29 Review of Systems ROS Statement: Those systems with pertinent positive or pertinent negative responses have been documented in the HPI. ROS Other: All systems not noted in ROS Statement are negative. Past Medical History Past Medical History: GERD/Reflux, Hyperlipidemia, Hypertension, Osteoarthritis (OA), Syncope Additional Past Medical History / Comment(s): hiatal hernia, spinal spurs and stenosis, degenerative disks. Cyst on left kidney following with Dr. Villagran History of Any Multi-Drug Resistant Organisms: None Reported Past Surgical History: Appendectomy, Bladder Surgery, Breast Surgery, Cholecystectomy, Hysterectomy, Joint Replacement, Orthopedic Surgery, Tubal Ligation Additional Past Surgical History / Comment(s): tomas shoulder surgery, hemorrhoidectomy, tomas cataract with lens implant,. rt knee replacement, lt breast lumpectomy, pain clinic procedures, Past Anesthesia/Blood Transfusion Reactions: Previous Problems w/ Anesthesia Additional Past Anesthesia/Blood Transfusion Reaction / Comment(s): blood pressure went very low w/past surgery Past Psychological History: Anxiety Smoking Status: Former smoker Past Alcohol Use History: None Reported Past Drug Use History: None Reported - Past Family History Mother Family Medical History: Cancer Additional Family Medical History / Comment(s): breast, uterine ca Father Family Medical History: Cancer Additional Family Medical History / Comment(s): colon General Exam Limitations: no limitations General appearance: alert, in no apparent distress Head exam: Present: atraumatic, normocephalic Eye exam: Present: normal appearance. Absent: PERRL (Pupils are reactive to light bilaterally, right pupil 4 mm, left pupil 3 mm) ENT exam: Present: normal exam Neck exam: Present: normal inspection. Absent: tenderness, meningismus Respiratory exam: Present: normal lung sounds bilaterally. Absent: respiratory distress, wheezes, rales Cardiovascular Exam: Present: regular rate, normal rhythm GI/Abdominal exam: Present: soft. Absent: distended, tenderness, guarding Extremities exam: Present: normal inspection, normal capillary refill. Absent: pedal edema Neurological exam: Present: alert, oriented X3, CN II-XII intact, motor sensory deficit (Mild bilateral upper extremity ataxia), other (Strength 5 out of 5 in all extremities) Psychiatric exam: Present: normal affect, normal mood Skin exam: Present: warm, dry, intact. Absent: cyanosis, diaphoretic Course Vital Signs 03/06/18 03/06/18 14:22 16:05 Temperature 98 F Pulse Rate 65 75 Respiratory 18 18 Rate Blood Pressure 147/90 148/70 O2 Sat by Pulse 99 97 Oximetry EKG Findings - EKG Comments: EKG Findings:: EKG: Normal sinus rhythm, low voltage QRS, incomplete right bundle branch block, left anterior fascicular block, ventricular rate is 60, IA interval 172, castration 94, QTC 432, no ST segment elevation Medical Decision Making - Medical Decision Making 77-year-old female presenting with confusion progressive over the past several months, she does states worsened over the past 3 days. Patient has a nonfocal neurologic exam. Head CT is obtained, shows large left-sided acute on chronic subdural with midline shift, no herniation. Patient's vital signs are stable. She has normal CBC, normal CMP. Chest x-ray pending Case discussed with Dr. Pak at [facility], she will accept patient for urgent neurosurgical evaluation. - Lab Data Result diagrams: 03/06/18 14:44 03/06/18 14:44 Lab Results 03/06/18 03/06/18 03/06/18 Range/Units 14:44 14:44 14:44 WBC 8.5 (3.8-10.6) k/uL RBC 4.48 (3.80-5.40) m/uL Hgb 13.5 (11.4-16.0) gm/dL Hct 42.1 (34.0-46.0) % MCV 94.1 (80.0-100.0) fL MCH 30.3 (25.0-35.0) pg MCHC 32.1 (31.0-37.0) g/dL RDW 13.3 (11.5-15.5) % Plt Count 245 (150-450) k/uL Neutrophils % 60 % Lymphocytes % 25 % Monocytes % 10 % Eosinophils % 2 % Basophils % 1 % Neutrophils # 5.1 (1.3-7.7) k/uL Lymphocytes # 2.1 (1.0-4.8) k/uL Monocytes # 0.8 (0-1.0) k/uL Eosinophils # 0.2 (0-0.7) k/uL Basophils # 0.1 (0-0.2) k/uL PT (9.0-12.0) sec INR (<1.2) APTT (22.0-30.0) sec Sodium 140 (137-145) mmol/L Potassium 4.9 (3.5-5.1) mmol/L Chloride 109 H (98-107) mmol/L Carbon Dioxide 24 (22-30) mmol/L Anion Gap 7 mmol/L BUN 18 H (7-17) mg/dL Creatinine 0.79 (0.52-1.04) mg/dL Est GFR (CKD-EPI)AfAm 83 (>60 ml/min/1.73 sqM) Est GFR (CKD-EPI)NonAf 72 (>60 ml/min/1.73 sqM) Glucose 100 H (74-99) mg/dL POC Glucose (mg/dL) (75-99) mg/dL POC Glu Poker In ID Calcium 9.9 (8.4-10.2) mg/dL Total Bilirubin 1.0 (0.2-1.3) mg/dL AST 39 H (14-36) U/L ALT 30 (9-52) U/L Alkaline Phosphatase 86 (38-126) U/L Total Creatine Kinase 200 H (30-135) U/L CK-MB (CK-2) 2.0 (0.0-2.4) ng/mL CK-MB (CK-2) Rel Index 1.0 Troponin I <0.012 (0.000-0.034) ng/mL Total Protein 6.7 (6.3-8.2) g/dL Albumin 4.1 (3.5-5.0) g/dL 03/06/18 03/06/18 Range/Units 14:44 15:04 WBC (3.8-10.6) k/uL RBC (3.80-5.40) m/uL Hgb (11.4-16.0) gm/dL Hct (34.0-46.0) % MCV (80.0-100.0) fL MCH (25.0-35.0) pg MCHC (31.0-37.0) g/dL RDW (11.5-15.5) % Plt Count (150-450) k/uL Neutrophils % % Lymphocytes % % Monocytes % % Eosinophils % % Basophils % % Neutrophils # (1.3-7.7) k/uL Lymphocytes # (1.0-4.8) k/uL Monocytes # (0-1.0) k/uL Eosinophils # (0-0.7) k/uL Basophils # (0-0.2) k/uL PT 9.8 (9.0-12.0) sec INR 0.9 (<1.2) APTT 22.7 (22.0-30.0) sec Sodium (137-145) mmol/L Potassium (3.5-5.1) mmol/L Chloride (98-107) mmol/L Carbon Dioxide (22-30) mmol/L Anion Gap mmol/L BUN (7-17) mg/dL Creatinine (0.52-1.04) mg/dL Est GFR (CKD-EPI)AfAm (>60 ml/min/1.73 sqM) Est GFR (CKD-EPI)NonAf (>60 ml/min/1.73 sqM) Glucose (74-99) mg/dL POC Glucose (mg/dL) 85 (75-99) mg/dL POC Glu Poker In ID Megan Villalta Calcium (8.4-10.2) mg/dL Total Bilirubin (0.2-1.3) mg/dL AST (14-36) U/L ALT (9-52) U/L Alkaline Phosphatase (38-126) U/L Total Creatine Kinase (30-135) U/L CK-MB (CK-2) (0.0-2.4) ng/mL CK-MB (CK-2) Rel Index Troponin I (0.000-0.034) ng/mL Total Protein (6.3-8.2) g/dL Albumin (3.5-5.0) g/dL Critical Care Time Critical Care Time: Yes Total Critical Care Time: 35 Disposition Clinical Impression: Subdural hemorrhage Disposition: OTHER INSTITUTION NOT DEFINED Condition: Serious Is patient prescribed a controlled substance at d/c from ED?: No Referrals: Luh Villagran MD [Primary Care Provider] - 1-2 days Time of Disposition: 16:16 - Out of Hospital Transfer - Req. Specs Out of Hospital Transfer - Requested Specifics: Other Emergency Center ( Transferred to [facility])
[2018-03-06 15:25] LABS: Creatine Kinase 200 U/L (30-135)
[2018-03-06 15:38] LABS: Troponin I <0.012 ng/mL (0.000-0.034)
--- NOTE | 2018-03-06 16:11 | CT ---
EXAMINATION TYPE: CT brain wo con DATE OF EXAM: 03/06/2018 COMPARISON: 01/01/2018. No interval films are available. INDICATION: Altered mental status. DLP: 1090.4 mGycm, Automated exposure control for dose reduction was used. CONTRAST: None CT of the brain is performed utilizing 3 mm thick sections through the posterior fossa and 3 mm thick sections through the remaining calvarium. Study is performed within 24 hours of arrival to the hosp ital. There are curvilinear areas of increased density through the left frontal parietal and parieto-occipi hitesh regions. This may be somewhat loculated. There are areas of hyperintensity as well as the majorit y of low density areas. Findings are compatible with large subdural hematomas. Differential could inc lude abscess in the proper clinical setting. This has a maximum depth of 2.5 cm in the left frontal p arietal region. A smaller area in the posterior parietal region on the left is estimated 1.8 cm in de pth although the AP dimension is significantly smaller. Small amount of hyperdensity is present such as in the anterior portion of this collection adjacent to the frontal lobe as well as within the depe ndent curvilinear area within the posterior left parietal region compatible some acute hemorrhage sup erimposed on the chronic subdurals. Report was called to emergency room physician Dr Lord by Dr. Teixeira by telephone at 1604 hours 03/06/2018. There is mass effect on the left cerebral hemisphere subfalcine herniation is present with approximat marla 0.8 cm left to right midline shift. Lateral ventricles are patent. No temporal horn dilatation is evident. Quadrigeminal plate and ambient cistern are patent. Fourth ventricle is midline. Third vent ricle is displaced somewhat compressed towards the right. There is prominence of extra-axial spaces on the right. No mass lesion is evident. No acute infarcts are evident. No hydrocephalus is evident. Paranasal sinuses and mastoid air cells within the wudyw-co-yhoa are clear. IMPRESSIONS: 1. Large subdural hematomas, which appear to be acute on chronic, through the left frontal parietal region as well as some smaller loculated areas in the parietal extending towards the occipital regio n. Maximum depth of the larger subdural hematoma is 2.5 cm. 2. Midline shift of 0.8 cm towards the right. 3. No hydrocephalus.
[2018-03-06 16:23] LABS: Cocaine Screen,Urine Not Detected (NotDetected); Phencyclidine Screen,Urine Not Detected (NotDetected); Urn Cannabinoid Scrn Not Detected (NotDetected)
[2018-03-06 16:24] LABS: Amphetamine Screen,Urine Not Detected (NotDetected); Barbiturate Screen,Urine Not Detected (NotDetected); Benzodiazepines Screen,Urine Detected (NotDetected); Methadone Screen, Urine Not Detected (NotDetected); Opiate Screen,Urine Not Detected (NotDetected); Oxycodone Screen, Urine Detected (NotDetected); Tricyclic Antidepressant,Urine Not Detected (NotDetected)
--- NOTE | 2018-03-06 16:41 | XR ---
EXAMINATION TYPE: XR chest 2V DATE OF EXAM: 03/06/2018 COMPARISON: 01/01/2018 INDICATION: Altered mental status TECHNIQUE: Frontal and lateral views of the chest are obtained. FINDINGS: The heart size is normal. The pulmonary vasculature is upper limits of normal. Some posterior infiltrate may be present better visualized on the lateral projection.. IMPRESSION: 1. Clinical consideration for a posterior infiltrate is recommended. Follow-up chest studies can be p erformed.
[2018-03-06 16:45] VITALS: BP 151/73; PULSE 72; TEMP 98.2
[2018-03-06 17:05] LABS: Appearance,Urine Clear (Clear); Bilirubin,Urine Negative (Negative); Blood,Urine Negative (Negative); Color,Urine Yellow; Glucose,Urine (UA) Negative (Negative); Ketones,Urine Trace (Negative); Leukocyte Esterase,Urine Negative (Negative); Nitrite,Urine Negative (Negative); PH, Urine 5.5 (5.0-8.0); Protein,Urine Negative (Negative); Specific Gravity,Urine 1.021 (1.001-1.035); Urobilinogen,Urine <2.0 mg/dL (<2.0)
== END 2018-03-06 16:51 | disposition short-term general hospital (02) ==
LOC: EC 14:21
DX: I62.01 Nontraumatic acute subdural hemorrhage (principal); I62.03 Nontraumatic chronic subdural hemorrhage; R27.0 Ataxia, unspecified; E78.5 Hyperlipidemia, unspecified; I10 Essential (primary) hypertension; K21.9 Gastro-esophageal reflux disease without esophagitis; M19.90 Unspecified osteoarthritis, unspecified site; F41.9 Anxiety disorder, unspecified; Z87.891 Personal history of nicotine dependence; Z88.6 Allergy status to analgesic agent; Z88.5 Allergy status to narcotic agent; Z88.8 Allergy status to other drugs, medicaments and biological substances; Z91.09 Other allergy status, other than to drugs and biological substances; Z79.899 Other long term (current) drug therapy; Z96.651 Presence of right artificial knee joint
CPT/HCPCS: 36415; 70450; 71046; 80053; 80306; 81003; 82550; 82553; 84484; 85025; 85610; 85730; 93005; 99291

== ENCOUNTER → 2018-04-15 | Outpatient (CLI) | payer MEDICARE ==
[2018-04-15 13:45] VITALS: BP 133/66; PULSE 60; RESP 18
--- NOTE | 2018-04-15 14:24 | P.PN ---
Subjective Progress Note Date: 04/15/18 This is a 77-year-old lady with history of chronic lower back pain with radiation to the lower extremities down to the knee level bilaterally. Her pain is more intense in the left side than the right side. The patient fell at home fell at home about a month ago and had to have craniotomy to evacuate Epidural hematoma. The patient's pain in her lower back is tolerable at this point. She still uses Percocet to 4 times a day and denies any side effects. Today, pt denies new-onset weakness, bowel/bladder incontinence, or any other signs or symptoms of cauda equina syndrome. There are no signs of acute intoxication, and no indications of medication diversion or overuse. In addition to above, 13-point review of systems is also negative for chest pain, shortness of breath, changes in vision, changes in hearing, new onset weakness, abdominal pain, diarrhea, extreme fatigue, malaise, fever, skin changes, homicidal or suicidal ideation, or bowel or bladder incontinence. Vital Signs: Reviewed in EMR Gen: AAOx3, NAD HEENT: PERRLA,hearing grossly normal Pulm: resp unlabored,CTA Heart:S1,S2, No Mur Neck: supple, trachea midline Neuro exam of the lower extremities: Normal muscle strength bilaterally Straight leg raising test: Negative bilaterally Kenney's test: Range of motion of the lumbar spine: Facet loading test: Tenderness in the paravertebral musculature: Positive on the lumbar paravertebral area bilaterally Neuro: CN II-XII grossly intact, Imaging: Reviewed in EMR/chart Assessment: Lumbar spondylosis without myelopathy Lumbar DDD Risk of fall with recent epidural hematoma evacuation by craniotomy Plan: 1. Explanation: Opioid and psychological risk scores were reviewed. Diagnoses, prognoses, and multiple treatment options including but not limited to physical therapy, interventional therapies, adjuvant medical therapies, narcotic medication therapies, and surgery were discussed with the patient and all questions were answered to the patient's satisfaction. 2. Opioid agreement: Signed with the patient and the patient is warned not to use opioids while driving or before driving and not to combine opioids with benzodiazepines or alcohol. 3. Counseling: The patient was counseled extensively on SMOKING CESSATION, BODY MASS INDEX, EXERCISE. Specifically, the patient was instructed regarding the importance of smoking cessation, obesity, and exercise in the context of both chronic pain and overall health. 4. Procedures: The patient may benefit from getting lumbar medial branch block and potentially RFA. 5. Consultations: None 6. Investigations: None 7. Medications: Percocet 5 mg 4 times a day and Neurontin. 8. Disposition: Return to clinic in 2 months 9. Maps were reviewed and were appropriate. PQRS measures: 1-Patient's medications are documented in the chart. 2-Tobacco use is negative, counseling given 3-Patient has had a pneumococcal vaccine. 4-Advanced care planning discussed, patient unable to give 5-Opioid contract signed with the patient. 6-Pain positive, follow-up visit or procedure scheduled 7-Patient's blood pressure measured and documented within normal limits. 8-Patient's weight was measured, and body mass index ABOVE the normal limits, and counseling was done. Patient instructed to follow up with PCP. 9-Patient WAS NOT identified as an unhealthy alcohol user. Controlled Substance Measures Is patient prescribed a controlled substance at discharge?: Yes When asked, does pt state using other controlled substances?: No If prescribed controlled substance>3 days was MAPS reviewed?: Yes If Rx opioid, was Start Talking consent form obtained?: Yes If opioid is for acute pain is fill amount 7 days or less?: No Was information provided regarding opioid addiction?: Yes Objective - Vital Signs Vital signs: Vital Signs Temp Pulse 60 04/15/18 13:40 Resp 18 04/15/18 13:40 BP 133/66 04/15/18 13:40 Pulse Ox 94 L 04/15/18 13:40 Intake & Output 04/14/18 04/15/18 04/15/18 18:59 06:59 18:59 Weight 72.121 kg
== END | disposition home or self-care (01) ==
LOC: PNWHC3 13:11
PROVIDERS: ATTEND Anesthesiology
DX: G89.29 Other chronic pain (principal); M51.36 Other intervertebral disc degeneration, lumbar region; M47.816 Spondylosis without myelopathy or radiculopathy, lumbar region; Z79.899 Other long term (current) drug therapy; Z79.891 Long term (current) use of opiate analgesic; Z98.890 Other specified postprocedural states
CPT/HCPCS: 99211

== ENCOUNTER → 2018-06-10 | Outpatient (CLI) | payer MEDICARE ==
[2018-06-10 12:46] VITALS: BP 139/65; PULSE 64; RESP 16
--- NOTE | 2018-06-10 13:14 | P.PAINPG ---
Subjective Progress Note Date: 06/10/18 This is follow-up visit for this patient with a history of severe and chronic low back pain secondary to lumbar degenerative disc disease, lumbar facet arthropathy, We have done an interventional pain procedure, lumbar epidural steroid injections, she get short-term benefit from it The patient currently on Percocet 5/325 every 6 hours when necessary, (she stopped using Neurontin because she had side effects from it ) Patient denies any side effect of the medication , patient denies any excessive drowsiness or sleepiness, patient denies any suicidal ideation, Patient reported that the current medication is helping to control the pain and improve the activity of daily livings, Patient denies any motor or sensory deficit, denies any change in the bowel movement or urination, patient denies any fever or night sweats. Patient here today for follow-up visit and medication refill Objective - Vital Signs Vital signs: Vital Signs Temp Pulse 64 06/10/18 12:43 Resp 16 06/10/18 12:43 BP 139/65 06/10/18 12:43 Pulse Ox Intake & Output 06/09/18 06/10/18 06/10/18 18:59 06:59 18:59 Weight 72.121 kg - Exam Physical Examinations : -Constitutiona : Cooperative , not in acute distress . -HEENT : nech ; supple , no Lymphadenopathy , normal thyroid size . eyes : no ptosis , no icterus, no photophobia . ENT : normal of hearing , normal oropharynx , no Thrush . - Respiratory : Chest clear to auscultations Bilaterally , no wheezing , no Rhonchi . - Cardiovascula : regular rate and rhythem , S1 , S2 , no S3 , no S4. - Gastrointestina : abdomen soft no tenderness , bowel sounds , no organomegally . - Genitourinary : Defferred . - neurologic : Cranial nerve II to XII intact , no focal neurological deffecit . -psychatric : alert , oriented X 3 , appropriate affect , intact judgment and insight . -Lymphatic : no Lymphadenopathy . - musculoskeltal : Lumber spine moter stegnth lower extremities ,thigh and legs 4/5 Right side , 4/5 Left side deep tendon reflexes : normal Knee Jerk , normal ankle Jerk positive lumber facet Loading Test Range of motion of the lumbar spine Flexion 30 degrees, extension 10 degrees strait leg raising test , positive at 30 degree Fabere test positive RT and positive LT . Assessment and Plan Plan: Assessment and plan= chronic low back pain secondary to lumbar degenerative disc disease , lumbar spondylosis with lumbar facet arthropathy She get short-term benefit from lumbar epidural steroid injections. chronic and current use of high-risk medication (opioids) Patient denies any side effects of the current pain medication and the current treatment/medication helping the patient to do activity of daily living , Diagnoses, prognosis, treatment options, including but not limited to physical therapy, medication management, interventional therapies, and surgery, were discussed with the patient All the questions answered The narcotic consent was signed and patient agreed and understood the side effects and complications of opioid treatment. Patient signed the narcotic agreement, and was orally counseled, not to overuse, not to abuse, not to Divert , not tp sell pain medication, and to take it as prescribed only, Patient was counseled not to drive or operate heavy equipment while using narcotic medication, and advised not to use alcohol or any Illicit drugs while using the narcotis. understanding that lack of compliance with any of the above instructions, will likely to cause discharge from, the pain service, not to renew his narcotic prescriptions MAPS Reviwed and it was apropriate . Medication managements= patient will be given prescription refills for Percocet 5/325 every 6 hours dispense 120 with one refill. Next visit we will do urine drug screen, Patient will be scheduled for diagnostic medial branch block lumbar area and L34, L4 5, L5-S1 x2 visits positive , then we'll proceed with RFA , Time with Patient: Less than 30 PQRS Measure Charge Sheet Measure #130: Documentation of Current Meds in Medical Chart: Patient's medications documented in chart Measure #226: Tobacco Use: Screen & Cessation Intervention: Pt not a tobacco user Measure #111: Pneumonia Vaccination: Pneumococcal vaccine administered or previously received Measure #47: Advance Care Plan: Advance care planning discussed & documented, pt chose/unable to give Measure #412: Opioid Treatment Agreement: Documented signed opioid trtmnt agreemnt min once during opioid trtmnt Measure #408: Opioid Therapy Follow-up Evaluation: Patient had f/u eval minimum every 3 months during opioid therapy Measure #317: Preventitive Care & Scrn High Bld Press & F/U: Pre-hypertensive or hypertensive BP documented, pt will f/u with PCP Measure #128: Body Mass Index (BMI) Screening & Follow-up: BMI documented ABOVE normal parameters - f/u documented Measure #131: Pain Assessment & Follow-up: Pain positive & plan documented, Follow-up scheduled Measure #431: Unhealthy Alcohol Use Preventative Care & Scrn: Patient not identified as an unhealthy alcohol user PQRS Narrative: Smoking Status Former smoker Narcotic Agreement Date Signed 02/25/18 Blood Pressure 139/65 Pain Intensity [None Lower 5 Back] Scale Used Numeric (1 - 10) Hx Alcohol Use (MH) No Home Medications: Ambulatory Orders Atenolol [Tenormin] 50 mg PO HS 07/28/13 Atorvastatin [Lipitor] 20 mg PO HS 07/28/13 Lansoprazole [Prevacid] 15 mg PO PC-LUNCH 07/28/13 Sertraline HCl 100 mg PO HS 12/31/13 amLODIPine [Norvasc] 5 mg PO BID 04/26/15 Olmesartan Medoxomil [Benicar] 40 mg PO DAILY 10/15/17 oxyCODONE HCL/ACETAMINOPHEN [Percocet 5-325 mg] 1 tab PO Q6HR PRN 30 Days #120 tab 02/25/18 Controlled Substance Measures - Controlled Substance Measures Is patient prescribed a controlled substance at discharge?: Yes When asked, does pt state using other controlled substances?: No If prescribed controlled substance>3 days was MAPS reviewed?: Yes If Rx opioid, was Start Talking consent form obtained?: Yes If opioid is for acute pain is fill amount 7 days or less?: No Was information provided regarding opioid addiction?: Yes
== END | disposition home or self-care (01) ==
LOC: PNWHC3 12:20
PROVIDERS: ATTEND Specialist
DX: G89.29 Other chronic pain (principal); M51.36 Other intervertebral disc degeneration, lumbar region; M47.816 Spondylosis without myelopathy or radiculopathy, lumbar region; M46.86 Other specified inflammatory spondylopathies, lumbar region; F11.90 Opioid use, unspecified, uncomplicated; Z79.899 Other long term (current) drug therapy; Z87.891 Personal history of nicotine dependence
CPT/HCPCS: 99211

== ENCOUNTER 2018-07-09 08:52 | Day surgery (SDC) | payer MEDICARE ==
[2018-07-04 16:22] VITALS: BMI 31.0
[2018-07-09 09:31] VITALS: TEMP 97.2
[2018-07-09] MEDS ORDERED: LACTATED RINGERS 1,000 ML IV ONE (09:39)
--- NOTE | 2018-07-09 10:07 | P.PCN ---
Date of Procedure: 07/09/18 Description of Procedure: Procedure: lumbar Medial Branch Block at bilateral L 4/5, 5/1 Diagnosis: Lumbar spondylosis without myelopathy Anesthesia: Local and 2 mg of Versed The patient was seen and examined in the PO. Procedure risks and benefits were fully reviewed with the patient. The patient understands this is a diagnostic if local only is used, as will be the case today. The goal of the procedure is to inject medication onto the medial branch or small nerves that innervate the facet joints. In this way, we can hopefully identify which of these joints, if any, may be contributing to their pain. Informed consent for procedure was obtained. The patient was taken into the office fluoroscopy procedure room and placed prone on the table. A pillow was placed under the abdomen to reduce lumbar lordosis. Vital signs were closely monitored during the procedure. The skin over the area was prepped with Betadine X 3 and draped in usual sterile manner. Sterile technique was observed throughout procedure. Under biplanar fluoroscopic guidance, the target injection area of the L4, L5 and sacral Ala were targeted. A 25 gauge 31/2 inch spinal needle was then placed at the most medial and superior aspect of the transverse process near the "eye of the Kris dog". Aspiration for blood was negative. 1 cc of 0.5% Ropivacaine was injected into the targeted areas separately. [place] were withdrawn intact. No complications were noted during the procedure. The patient tolerated the procedure well. The patient was placed in supine position and transferred to the recovery area for observation and remained stable until discharged home. Home discharge instructions were given to the patient by the staff. The patient will schedule a follow up as directed.
[2018-07-09] MEDS ORDERED: IV FLUID CONTINUATION 1,000 ML IV ONE (10:19)
--- NOTE | 2018-07-09 10:38 | FL ---
EXAMINATION TYPE: FL guided pain mgmt statistic DATE OF EXAM: 07/09/2018 CLINICAL HISTORY: Low back pain. TECHNIQUE: Fluoroscopy. COMPARISON: None. FINDINGS: Fluoroscopic guidance was provided during pain relief procedure performed by Dr. Walker. A total of 22 seconds of fluoroscopic time was utilized during the procedure and 1 spot images are ac quired. Images acquired shows needle localization of the lumbar spine. IMPRESSION: As Above.
[2018-07-09 10:54] VITALS: BP 150/73; PULSE 58; RESP 18
== END 2018-07-09 10:55 | disposition home or self-care (01) ==
LOC: ORPAIN 08:52
PROVIDERS: ATTEND Hospitalist
DX: M47.816 Spondylosis without myelopathy or radiculopathy, lumbar region (principal)
CPT/HCPCS: 64493; 64494; J2250

== ENCOUNTER → 2018-08-05 | Outpatient (CLI) | payer MEDICARE ==
[2018-08-05 12:15] VITALS: BP 116/64; PULSE 67; RESP 18
--- NOTE | 2018-08-05 12:26 | P.PAINPG ---
Subjective Progress Note Date: 08/05/18 This is follow-up visit for this patient with a history of severe and chronic low back pain secondary to lumbar degenerative disc disease, lumbar spondylosis with facet arthropathy, We have done an interventional pain procedure, lumbar epidural steroid injections, she get short-term benefit from it , recently we did diagnostic medial branch block lumbar area at L3 4 , L4 5, L5-S1, and she is scheduled to have a second diagnostic medial branch block lumbar area in the next few days, The patient currently on Percocet 5/325 every 6 hours when necessary, (she stopped using Neurontin because she had side effects from it ) ,Patient denies any side effect of the medication , patien t denies any excessive drowsiness or sleepiness, patient denies any suicidal ideation,Patient reported that the current medication is helping to control the pain and improve the activity of daily livings,Patient denies any motor or sensory deficit, denies any change in the bowel movement or urination, patient denies any fever or night sweats.Patient here today for follow-up visit and medication refill Physical Examinations : -Constitutiona : Cooperative , not in acute distress . -HEENT : nech ; supple , no Lymphadenopathy , normal thyroid size . eyes : no ptosis , no icterus, no photophobia . ENT : normal of hearing , normal oropharynx , no Thrush . - Respiratory : Chest clear to auscultations Bilaterally , no wheezing , no Rhonchi . - Cardiovascula : regular rate and rhythem , S1 , S2 , no S3 , no S4. - Gastrointestina : abdomen soft no tenderness , bowel sounds , no organomegally . - Genitourinary : Defferred . - neurologic : Cranial nerve II to XII intact , no focal neurological deffecit . -psychatric : alert , oriented X 3 , appropriate affect , intact judgment and insight . -Lymphatic : no Lymphadenopathy . - musculoskeltal : Lumber spine moter stegnth lower extremities ,thigh and legs 4/5 Right side , 4/5 Left side deep tendon reflexes : normal Knee Jerk , normal ankle Jerk positive lumber facet Loading Test Range of motion of the lumbar spine Flexion 30 degrees, extension 10 degrees strait leg raising test , positive at 30 degree Fabere test positive RT and positive LT . Assessment and plan= chronic low back pain secondary to lumbar degenerative disc disease , lumbar spondylosis with lumbar facet arthropathy She get short-term benefit from lumbar epidural steroid injections. chronic and current use of high-risk medication (opioids) Patient denies any side effects of the current pain medication and the current treatment/medication helping the patient to do activity of daily living , Diagnoses, prognosis, treatment options, including but not limited to physical therapy, medication management, interventional therapies, and surgery, were discussed with the patient All the questions answered The narcotic consent was signed and patient agreed and understood the side effects and complications of opioid treatment. Patient signed the narcotic agreement, and was orally counseled, not to overuse, not to abuse, not to Divert , not tp sell pain medication, and to take it as prescribed only, Patient was counseled not to drive or operate heavy equipment while using narcotic medication, and advised not to use alcohol or any Illicit drugs while using the narcotis. understanding that lack of compliance with any of the above instructions, mari l likely to cause discharge from, the pain service, not to renew his narcotic prescriptions MAPS Reviwed and it was apropriate . Medication managements= patient will be given prescription refills for Percocet 5/325 every 6 hours dispense 120 with one refill. Next visit we will do urine drug screen, Patient will have 2nd diagnostic medial branch block lumbar area at L34, L4 5, L5-S1 in the next few days , Objective - Vital Signs Vital signs: Vital Signs Temp Pulse 67 08/05/18 12:11 Resp 18 08/05/18 12:11 BP 116/64 08/05/18 12:11 Pulse Ox 97 08/05/18 12:11 Intake & Output 08/04/18 08/05/18 08/05/18 18:59 06:59 18:59 Weight 71.214 kg PQRS Measure Charge Sheet Measure #130: Documentation of Current Meds in Medical Chart: Patient's medications documented in chart Measure #226: Tobacco Use: Screen & Cessation Intervention: Pt not a tobacco user Measure #111: Pneumonia Vaccination: Pneumococcal vaccine administered or previously received Measure #47: Advance Care Plan: Advance care planning discussed & documented, pt chose/unable to give Measure #412: Opioid Treatment Agreement: Documented signed opioid trtmnt agreemnt min once during opioid trtmnt Measure #408: Opioid Therapy Follow-up Evaluation: Patient had f/u eval minimum every 3 months during opioid therapy Measure #317: Preventitive Care & Scrn High Bld Press & F/U: Normal blood pressure, f/u not required Measure #128: Body Mass Index (BMI) Screening & Follow-up: BMI documented ABOVE normal parameters - f/u documented Measure #131: Pain Assessment & Follow-up: Pain positive & plan documented, Follow-up scheduled Measure #431: Unhealthy Alcohol Use Preventative Care & Scrn: Patient not identified as an unhealthy alcohol user PQRS Narrative: Smoking Status Former smoker Narcotic Agreement Date Signed 02/25/18 Blood Pressure 116/64 Pain Intensity [Lower Back] 7 Scale Used Numeric (1 - 10) Hx Alcohol Use (MH) No Home Medications: Ambulatory Orders Atenolol [Tenormin] 50 mg PO HS 07/28/13 Atorvastatin [Lipitor] 20 mg PO HS 07/28/13 Lansoprazole [Prevacid] 15 mg PO PC-LUNCH 07/28/13 Sertraline HCl 100 mg PO HS 12/31/13 amLODIPine [Norvasc] 5 mg PO BID 04/26/15 Olmesartan Medoxomil [Benicar] 40 mg PO DAILY 10/15/17 Biotin 5,000 mcg PO DAILY 07/04/18 Cholecalciferol [Vitamin D3 (25 Mcg = 1000 Iu)] 5,000 unit PO MOWEFR 07/04/18 Docusate [Colace] 100 mg PO HS 07/04/18 Loratadine [Claritin] 10 mg PO DAILY 07/04/18 Memantine [Namenda] 5 mg PO BID 07/04/18 Multivitamins, Thera [Multivitamin (formulary)] 1 tab PO DAILY 07/04/18 oxyCODONE HCL/ACETAMINOPHEN [Percocet 5-325 mg] 1 tab PO Q6HR PRN 30 Days #120 tab 08/05/18 oxyCODONE HCL/ACETAMINOPHEN [Percocet 5-325 mg] 1 tab PO Q6HR PRN 30 Days #120 tab 08/05/18 Controlled Substance Measures - Controlled Substance Measures Is patient prescribed a controlled substance at discharge?: Yes When asked, does pt state using other controlled substances?: No If prescribed controlled substance>3 days was MAPS reviewed?: Yes If Rx opioid, was Start Talking consent form obtained?: Yes If opioid is for acute pain is fill amount 7 days or less?: No Was information provided regarding opioid addiction?: Yes
== END ==
LOC: PNWHC3 11:57
PROVIDERS: ATTEND Specialist
DX: G89.29 Other chronic pain (principal); M51.36 Other intervertebral disc degeneration, lumbar region; M47.816 Spondylosis without myelopathy or radiculopathy, lumbar region; M46.96 Unspecified inflammatory spondylopathy, lumbar region; Z79.899 Other long term (current) drug therapy; Z79.891 Long term (current) use of opiate analgesic; Z87.891 Personal history of nicotine dependence
CPT/HCPCS: 99211

== ENCOUNTER 2018-08-07 09:06 | Day surgery (SDC) | payer MEDICARE ==
[2018-08-05 10:15] VITALS: BMI 30.7
[~2018-08-07 09:06] MED LIST changes: +LACTATED RINGERS 1,000 ML IV SCH; -SODIUM CHLORIDE 0.9% 500 ML 500 ML IV SCH
[2018-08-07 09:36] VITALS: RESP 18; TEMP 98.2
[2018-08-07] MEDS ORDERED: LIDOCAINE 1% 20 ML VIAL (10MG/ML) FOR IV START INTRADERMA ONE (09:43)
--- NOTE | 2018-08-07 10:37 | P.PCN ---
Date of Procedure: 08/07/18 Procedure(s) Performed: Description of Procedure: Procedure: lumbar Medial Branch Block at bilateral L 4/5, 5/1 Diagnosis: Lumbar spondylosis without myelopathy Anesthesia: Local and 2 mg of Versed The patient was seen and examined in the PO. Procedure risks and benefits were fully reviewed with the patient. The patient understands this is a diagnostic if local only is used, as will be the case today. The goal of the procedure is to inject medication onto the medial branch or small nerves that innervate the facet joints. In this way, we can hopefully identify which of these joints, if any, may be contributing to their pain. Informed consent for procedure was obtained. The patient was taken into the office fluoroscopy procedure room and placed prone on the table. A pillow was placed under the abdomen to reduce lumbar lordosis. Vital signs were closely monitored during the procedure. The skin over the area was prepped with Chloroprep *2 and draped in usual sterile manner. Sterile technique was observed throughout procedure. Under biplanar fluoroscopic guidance, the target injection area of the bilateral L4, L5 and sacral Ala were targeted. A 25 gauge 31/2 inch spinal needle was then placed at the most medial and superior aspect of the transverse process near the "eye of the Kris dog". Aspiration for blood was negative. 0.2cc of omnipaque dye 180mg/ml was injected at each level to rule out intravascular spread. Then 0.5 cc of 4% Lidocaine was injected into the targeted areas separately. [place] were withdrawn intact. No complications were noted during the procedure. The patient tolerated the procedure well. The patient was placed in supine position and transferred to the recovery area for observation and remained stable until discharged home. Home discharge instructions were given to the patient by the staff. The patient will schedule a follow up in clinic in 2 weeks.
[2018-08-07] MEDS ORDERED: IV FLUID CONTINUATION 1,000 ML IV ONE (10:44)
--- NOTE | 2018-08-07 10:56 | FL ---
EXAMINATION TYPE: FL guided pain mgmt statistic DATE OF EXAM: 08/07/2018 HISTORY: Pain 11 seconds of fluoroscopic time was utilized for pain management.
[2018-08-07 11:01] VITALS: BP 150/68; PULSE 55
== END 2018-08-07 11:25 | disposition home or self-care (01) ==
LOC: ORPAIN 09:06
PROVIDERS: ATTEND Anesthesiology
DX: M47.816 Spondylosis without myelopathy or radiculopathy, lumbar region (principal)
CPT/HCPCS: 64493; 64494; J2250; Q9966; 99152

== ENCOUNTER → 2018-08-27 | Outpatient (CLI) | payer MEDICARE ==
[2018-08-27 14:12] VITALS: BP 112/62; PULSE 62; RESP 18
--- NOTE | 2018-08-28 14:26 | P.PAINPG ---
Subjective Progress Note Date: 08/27/18 This is follow-up visit for this patient with a history of severe and chronic low back pain secondary to lumbar degenerative disc disease, lumbar spondylosis with facet arthropathy, Recently she underwent bilateral L4-5 and L5-S1 medial branch blocks on 07/09/2018 and 08/07/2018. She reports 80% relief from first procedure and 60% relief from second procedure. Today her pain is more left-sided than right- sided. She continues to do daily exercises. She walks with a walker. She e ndorses intentional 40 pound weight loss. The patient currently on Percocet 5/325 every 6 hours when necessary, (she stopped using Neurontin because she had side effects from it ) ,Patient denies any side effect of the medication , patient denies any excessive drowsiness or sleepiness, patient denies any suicidal ideation,Patient reported that the current medication is helping to control the pain and improve the activity of daily livings,Patient denies any motor or sensory deficit, denies any change in the bowel movement or urination, patient denies any fever or night sweats. Review of systems is negative for chest pain, shortness of breath, new onset weakness, numbness/tingling, abdominal pain, malaise, fever, night sweats, chills, homicidal or suicidal ideation, or bowel incontinence. He does have chronic urinary incontinence Physical exam: Vitals: Reviewed in EMR GENERAL: Well appearing, in no acute distress PSYCH: Mood and affect is appropriate. Awake, alert, and oriented SKIN: Skin color, texture, turgor normal, no rashes or lesions HEENT: Normocephalic, atraumatic. EOM intact CV: No pedal edema RESP: Respirations are unlabored, no audible wheezing GI: Abdomen non-distended MUSCULOSKELETAL: Bilateral upper and lower extremity strength is normal and symmetric. No atrophy or tone abnormalities are noted. Lumbar spine: Straight leg raising in the sitting position is negative for radicular pain. Tenderness to palpation over the lumbar spine and paraspinous muscles. Positive for pain with facet loading and back extension/rotation bilaterally. Normal range of motion without pain reproduction Buttocks: No pain to palpation over the PSIS, sacroiliac joint maneuvers are negative for pain. Extremities: Peripheral joint ROM is full and pain free without obvious in stability or laxity in all four extremities. No edema or skin discolorations noted. Gait: Gait is slow, antalgic, walker present in room NEUR: Bilateral uower extremity coordination and muscle stretch reflexes are physiologic and symmetric. Negative clonus bilaterally. Loss of sensation to light touch noted in bilateral feet Assessment and plan= chronic low back pain secondary to lumbar degenerative disc disease , lumbar spondylosis with lumbar facet arthropathy She reports greater than 50% relief from lumbar medial branch blocks at L4-5 and L5-S 1 bilaterally. She would like to proceed with radio frequency ablation. We will start with the left side. chronic and current use of high-risk medication (opioids) Patient denies any side effects of the current pain medication and the current treatment/medication helping the patient to do activity of daily living , Diagnoses, prognosis, treatment options, including but not limited to physical therapy, medication management, interventional therapies, and surgery, were discussed with the patient All the questions answered Patient was counseled on importance of continued daily exercises and weight loss MAPS Reviwed and it was apropriate . UDS to be done at next visit No prescriptions given today, as patient recently filled prescriptions. Objective - Vital Signs Vital signs: Vital Signs Temp Pulse 62 08/27/18 14:05 Resp 18 08/27/18 14:05 BP 112/62 08/27/18 14:05 Pulse Ox 98 08/27/18 14:05 Intake & Output 08/27/18 08/28/18 08/28/18 18:59 06:59 18:59 Weight 70.307 kg PQRS Measure Charge Sheet Measure #130: Documentation of Current Meds in Medical Chart: Patient's medications documented in chart Measure #226: Tobacco Use: Screen & Cessation Intervention: Pt not a tobacco user Measure #111: Pneumonia Vaccination: Pneumococcal vaccine administered or previously received Measure #47: Advance Care Plan: Advance care planning discussed & documented, pt chose/unable to give Measure #412: Opioid Treatment Agreement: Documented signed opioid trtmnt agreemnt min once during opioid trtmnt Measure #408: Opioid Therapy Follow-up Evaluation: Patient had f/u eval minimum every 3 months during opioid therapy Measure #317: Preventitive Care & Scrn High Bld Press & F/U: Normal blood pressure, f/u not required Measure #128: Body Mass Index (BMI) Screening & Follow-up: BMI documented ABOVE normal parameters - f/u documented Measure #131: Pain Assessment & Follow-up: Pain positive & plan documented, Follow-up scheduled Measure #431: Unhealthy Alcohol Use Preventative Care & Scrn: Patient not identified as an unhealthy alcohol user PQRS Narrative: Smoking Status Former smoker Narcotic Agreement Date Signed 02/25/18 Blood Pressure 112/62 Pain Intensity [Lower Back] 5 Scale Used Numeric (1 - 10) Hx Alcohol Use (MH) No Home Medications: Ambulatory Orders Atenolol [Tenormin] 50 mg PO HS 07/28/13 Atorvastatin [Lipitor] 20 mg PO HS 07/28/13 Lansoprazole [Prevacid] 15 mg PO PC-LUNCH 07/28/13 Sertraline HCl 100 mg PO HS 12/31/13 amLODIPine [Norvasc] 5 mg PO BID 04/26/15 Olmesartan Medoxomil [Benicar] 40 mg PO DAILY 10/15/17 Biotin 5,000 mcg PO DAILY 07/04/18 Cholecalciferol [Vitamin D3 (25 Mcg = 1000 Iu)] 5,000 unit PO MOWEFR 07/04/18 Docusate [Colace] 100 mg PO HS 07/04/18 Loratadine [Claritin] 10 mg PO DAILY 07/04/18 Memantine [Namenda] 5 mg PO BID 07/04/18 Multivitamins, Thera [Multivitamin (formulary)] 1 tab PO DAILY 07/04/18 oxyCODONE HCL/ACETAMINOPHEN [Percocet 5-325 mg] 1 tab PO Q6HR PRN 30 Days #120 tab 08/05/18 Controlled Substance Measures - Controlled Substance Measures Is patient prescribed a controlled substance at discharge?: No
== END | disposition home or self-care (01) ==
LOC: PNWHC3 13:52
PROVIDERS: ATTEND Anesthesiology
DX: G89.29 Other chronic pain (principal); M51.36 Other intervertebral disc degeneration, lumbar region; M47.816 Spondylosis without myelopathy or radiculopathy, lumbar region; M46.96 Unspecified inflammatory spondylopathy, lumbar region; Z87.891 Personal history of nicotine dependence; Z79.899 Other long term (current) drug therapy; Z79.891 Long term (current) use of opiate analgesic
CPT/HCPCS: 80307; G0482; G0463; 99211

== ENCOUNTER → 2018-09-17 | Outpatient (CLI) | payer MEDICARE | END | disposition home or self-care (01) | LOC: LABWHC1 13:43 | PROVIDERS: ATTEND Family Medicine | DX: R19.7 Diarrhea, unspecified (principal) | CPT/HCPCS: 87045; 87046; 87324; 87328; 87329 ==

== ENCOUNTER → 2018-09-30 | Outpatient (CLI) | payer MEDICARE ==
[2018-09-30 12:22] VITALS: BP 127/67; PULSE 64; RESP 16
--- NOTE | 2018-09-30 12:59 | P.PAINPG ---
Subjective Progress Note Date: 09/30/18 This is follow-up visit for this patient with a history of severe and chronic low back pain secondary to lumbar degenerative disc disease, lumbar spondylosis with facet arthropathy, Recently she underwent bilateral L4-5 and L5-S1 medial branch blocks on 07/09/2018 and 08/07/2018. She reports 80% relief from first procedure and 60% relief from second procedure. She reported that her pain is more left-sided than right-sided. She continues to do daily exercises. She walks with a w alker. Her insurance rejected doing RF A the medial branch The patient currently on Percocet 5/325 every 6 hours when necessary, (she stopped using Neurontin because she had side effects from it ) ,Patient denies any side effect of the medication , patient denies any excessive drowsiness or sleepiness, patient denies any suicidal ideation,Patient reported that the current medication is helping to control the pain and improve the activity of daily livings,Patient denies any motor or sensory deficit, denies any change in the bowel movement or urination, patient denies any fever or night sweats. Review of systems is negative for chest pain, shortness of breath, new onset weakness, numbness/tingling, abdominal pain, malaise, fever, night sweats, chill s, homicidal or suicidal ideation, or bowel incontinence. He does have chronic urinary incontinence Physical exam: Vitals: Reviewed in EMR GENERAL: Well appearing, in no acute distress PSYCH: Mood and affect is appropriate. Awake, alert, and oriented SKIN: Skin color, texture, turgor normal, no rashes or lesions HEENT: Normocephalic, atraumatic. EOM intact CV: No pedal edema RESP: Respirations are unlabored, no audible wheezing GI: Abdomen non-distended MUSCULOSKELETAL: Bilateral upper and lower extremity strength is normal and symmetric. No atrophy or tone abnormalities are noted. Lumbar spine: Straight leg raising in the sitting position is negative for radicular pain. Tenderness to palpation over the lumbar spine and paraspinous muscles. Positive for pain with facet loading and back extension/rotation bilaterally. Normal range of motion without pain reproduction Buttocks: No pain to palpation over the PSIS, sacroiliac joint maneuvers are negative for pain. Extremities: Peripheral joint ROM is full and pain free without obvious instability or laxity in all four extremities. No edema or skin discolorations noted. Gait: Gait is slow, antalgic, walker present in room NEUR: Bilateral uower extremity coordination and muscle stretch reflexes are physiologic and symmetric. Negative clonus bilaterally. Loss of sensation to light touch noted in bilateral feet Assessment and plan= chronic low back pain secondary to lumbar degenerative disc disease , lumbar spondylosis with lumbar facet arthropathy She reports greater than 50% relief from lumbar medial branch blocks at L4-5 and L5-S 1 bilaterally. She would like to proceed with radio frequency ablation. Her insurance did not approve to proceed with the RFA of the medial branch lumbar area chronic and current use of high-risk medication (opioids) Patient denies any side effects of the current pain medication and the current treatment/medication helping the patient to do activity of daily living , Diagnoses, prognosis, treatment options, including but not limited to physical therapy, medication management, interventional therapies, and surgery, were discussed with the patient All the questions answered Patient was counseled on importance of continued daily exercises and weight loss MAPS Reviwed and it was apropriate . Patient given prescription refill for Percocet 5/325 one tablet by mouth every 6 hours when necessary for pain dispense 120 with one refill and she will follow up in the pain clinic in 2 months Objective - Vital Signs Vital signs: Vital Signs Temp Pulse 64 09/30/18 12:14 Resp 16 09/30/18 12:14 BP 127/67 09/30/18 12:14 Pulse Ox 98 09/30/18 12:14 Intake & Output 09/29/18 09/30/18 09/30/18 18:59 06:59 18:59 Weight 68.039 kg PQRS Measure Charge Sheet Measure #130: Documentation of Current Meds in Medical Chart: Patient's medications documented in chart Measure #226: Tobacco Use: Screen & Cessation Intervention: Pt not a tobacco user Measure #111: Pneumonia Vaccination: Pneumococcal vaccine administered or previously received Measure #47: Advance Care Plan: Advance care planning discussed & documented, pt chose/unable to give Measure #412: Opioid Treatment Agreement: Documented signed opioid trtmnt agreemnt min once during opioid trtmnt Measure #408: Opioid Therapy Follow-up Evaluation: Patient had f/u eval minimum every 3 months during opioid therapy Measure #317: Preventitive Care & Scrn High Bld Press & F/U: Normal blood pressure, f/u not required Measure #128: Body Mass Index (BMI) Screening & Follow-up: BMI documented ABOVE normal parameters - f/u documented Measure #131: Pain Assessment & Follow-up: Pain positive & plan documented, Follow-up scheduled Measure #431: Unhealthy Alcohol Use Preventative Care & Scrn: Patient not identified as an unhealthy alcohol user PQRS Narrative: Smoking Status Former smoker Narcotic Agreement Date Signed 02/25/18 Blood Pressure 127/67 Pain Intensity [Bilateral 5 Lower Back] Hx Alcohol Use (MH) No Home Medications: Ambulatory Orders Atenolol [Tenormin] 50 mg PO HS 07/28/13 Atorvastatin [Lipitor] 20 mg PO HS 07/28/13 Lansoprazole [Prevacid] 15 mg PO PC-LUNCH 07/28/13 Sertraline HCl 100 mg PO HS 12/31/13 amLODIPine [Norvasc] 5 mg PO BID 04/26/15 Olmesartan Medoxomil [Benicar] 40 mg PO DAILY 10/15/17 Biotin 5,000 mcg PO DAILY 07/04/18 Cholecalciferol [Vitamin D3 (25 Mcg = 1000 Iu)] 5,000 unit PO MOWEFR 07/04/18 Docusate [Colace] 100 mg PO HS 07/04/18 Loratadine [Claritin] 10 mg PO DAILY 07/04/18 Memantine [Namenda] 5 mg PO BID 07/04/18 Multivitamins, Thera [Multivitamin (formulary)] 1 tab PO DAILY 07/04/18 oxyCODONE HCL/ACETAMINOPHEN [Percocet 5-325 mg] 1 tab PO Q6HR PRN 30 Days #120 tab 08/05/18 Controlled Substance Measures - Controlled Substance Measures Is patient prescribed a controlled substance at discharge?: Yes When asked, does pt state using other controlled substances?: No If prescribed controlled substance>3 days was MAPS reviewed?: Yes If Rx opioid, was Start Talking consent form obtained?: Yes If opioid is for acute pain is fill amount 7 days or less?: No Was information provided regarding opioid addiction?: Yes
== END | disposition home or self-care (01) ==
LOC: PNWHC3 12:02
PROVIDERS: ATTEND Specialist
DX: G89.29 Other chronic pain (principal); M51.36 Other intervertebral disc degeneration, lumbar region; M47.816 Spondylosis without myelopathy or radiculopathy, lumbar region; M46.96 Unspecified inflammatory spondylopathy, lumbar region; Z87.891 Personal history of nicotine dependence; Z98.890 Other specified postprocedural states; Z79.891 Long term (current) use of opiate analgesic; Z79.899 Other long term (current) drug therapy
CPT/HCPCS: 99211

== ENCOUNTER → 2018-12-19 | Outpatient (CLI) | payer MEDICARE ==
[2018-12-19 12:04] VITALS: BP 132/75; PULSE 60; RESP 16; TEMP 97.8
--- NOTE | 2018-12-24 10:46 | P.PAINPG ---
Subjective Progress Note Date: 12/19/18 This is follow-up visit for this patient with a history of severe and chronic low back pain secondary to lumbar degenerative disc disease, lumbar spondylosis with facet arthropathy, Recently she underwent bilateral L4-5 and L5-S1 medial branch blocks on 07/09/2018 and 08/07/2018. She reports 100% relief from procedures, lasting 2 weeks however her insurance did not approve RFA. Today her pain is still located in low back, rated a 6 out of 10. Pain is worse with any activity, better with lying down and medications. She continues to do daily exercises. She walks with a walker. She endorses intentional 40 pound weight loss. She has been suffering from emotional stress, she recently lost her son to alcoholic cirrhosis as well as a sister. She does have unchanged bilateral lower extremity numbness primarily located in her calves. The patient currently on Percocet 5/325 every 6 hours when necessary ,Patient denies any side effect of the medication , patient denies any excessive drowsiness or sleepiness, patient denies any suicidal ideation,Patient reported that the current medication is helping to control the pain and improve the activity of daily livings,Patient denies any motor or sensory deficit, denies any change in the bowel movement or urination, patient denies any fever or night sweats. Review of systems is negative for chest pain, shortness of breath, new onset weakness, numbness/tingling, abdominal pain, malaise, fever, night sweats, chills, homicidal or suicidal ideation, or bowel incontinence. She does have chronic urinary incontinence Physical exam: Vitals: Reviewed in EMR GENERAL: Well appearing, in no acute distress PSYCH: Mood and affect is appropriate. Awake, alert, and oriented SKIN: Skin color, texture, turgor normal, no rashes or lesions HEENT: Normocephalic, atraumatic. EOM intact CV: No pedal edema RESP: Respirations are unlabored, no audible wheezing GI: Abdomen non-distended MUSCULOSKELETAL: Bilateral lower extremity strength is normal and symmetric. No atrophy or tone abnormalities are noted. Lumbar spine: Tenderness to palpation over the lumbar spine and paraspinous muscles. Positive for pain with facet loading and back extension/rotation bilaterally. Normal range of motion without pain reproduction Buttocks: No pain to palpation over the PSIS, sacroiliac joint maneuvers are negative for pain. Extremities: Peripheral joint ROM is full and pain free without obvious instabil ity or laxity in all four extremities. No edema or skin discolorations noted. Gait: Gait is slow, antalgic, walker present in room NEUR: Bilateral lower extremity coordination and muscle stretch reflexes are physiologic and symmetric. Negative clonus bilaterally. Loss of sensation to light touch noted in bilateral feet Assessment and plan= chronic low back pain secondary to lumbar degenerative disc disease , lumbar spondylosis with lumbar facet arthropathy She reports 100% relief lasting 2 weeks from lumbar medial branch blocks at L3, L4, L5 bilaterally. She would be an excellent candidate for radiofrequency ablation. We will pursue insurance company to reconsider, we'll do a peer to peer review If necessary. We will start with the left side, pending insurance approval. chronic and current use of high-risk medication (opioids) Patient denies any side effects of the current pain medication and the current treatment/medication helping the patient to do activity of daily living , Diagnoses, prognosis, treatment options, including but not limited to physical therapy, medication management, interventional therapies, and surgery, were discussed with the patient All the questions answered Patient was counseled on importance of continued daily exercises and weight loss MAPS Reviwed and it was apropriate . UDS to be done at next visit Prescriptions were refilled today. Patient was provided with exercise sheet for low back and core strengthening exercises. The height of her walker was adjusted, she feels she is stooped over. PQRS Measure Charge Sheet Measure #130: Documentation of Current Meds in Medical Chart: Patient's medications documented in chart Measure #226: Tobacco Use: Screen & Cessation Intervention: Pt not a tobacco user Measure #111: Pneumonia Vaccination: Pneumococcal vaccine administered or previously received Measure #47: Advance Care Plan: Advance care planning discussed & documented, pt chose/unable to give Measure #412: Opioid Treatment Agreement: Documented signed opioid trtmnt agreemnt min once during opioid trtmnt Measure #408: Opioid Therapy Follow-up Evaluation: Patient had f/u eval minimum every 3 months during opioid therapy Measure #317: Preventitive Care & Scrn High Bld Press & F/U: Normal blood pressure, f/u not required Measure #128: Body Mass Index (BMI) Screening & Follow-up: BMI documented ABOVE normal parameters - f/u documented Measure #131: Pain Assessment & Follow-up: Pain positive & plan documented, Follow-up scheduled Measure #431: Unhealthy Alcohol Use Preventative Care & Scrn: Patient not identified as an unhealthy alcohol user PQRS Narrative: Smoking Status Former smoker Narcotic Agreement Date Signed 02/25/18 Pain Intensity [Back] 6 Scale Used Numeric (1 - 10) Hx Alcohol Use (MH) No Home Medications: Ambulatory Orders Atenolol [Tenormin] 50 mg PO HS 07/28/13 Atorvastatin [Lipitor] 20 mg PO HS 07/28/13 Lansoprazole [Prevacid] 15 mg PO PC-LUNCH 07/28/13 Sertraline HCl 100 mg PO HS 12/31/13 amLODIPine [Norvasc] 5 mg PO BID 04/26/15 Olmesartan Medoxomil [Benicar] 40 mg PO DAILY 10/15/17 Biotin 5,000 mcg PO DAILY 07/04/18 Cholecalciferol [Vitamin D3 (25 Mcg = 1000 Iu)] 5,000 unit PO MOWEFR 07/04/18 Docusate [Colace] 200 mg PO HS 07/04/18 Loratadine [Claritin] 10 mg PO DAILY 07/04/18 Memantine [Namenda] 5 mg PO BID 07/04/18 Multivitamins, Thera [Multivitamin (formulary)] 1 tab PO DAILY 07/04/18 oxyCODONE HCL/ACETAMINOPHEN [Percocet 5-325 mg] 1 tab PO Q6HR PRN 30 Days #120 tab 08/05/18 L.acidoph,Paracasei, B.lactis [Probiotic] 1 each PO DAILY 11/20/18 Controlled Substance Measures - Controlled Substance Measures Is patient prescribed a controlled substance at discharge?: Yes When asked, does pt state using other controlled substances?: No If prescribed controlled substance>3 days was MAPS reviewed?: Yes If Rx opioid, was Start Talking consent form obtained?: Yes If opioid is for acute pain is fill amount 7 days or less?: No Was information provided regarding opioid addiction?: Yes
== END | disposition home or self-care (01) ==
LOC: PNWHC3 11:45
PROVIDERS: ATTEND Anesthesiology
DX: G89.29 Other chronic pain (principal); M51.36 Other intervertebral disc degeneration, lumbar region; M47.816 Spondylosis without myelopathy or radiculopathy, lumbar region; M46.96 Unspecified inflammatory spondylopathy, lumbar region; Z87.891 Personal history of nicotine dependence; K70.30 Alcoholic cirrhosis of liver without ascites; R20.2 Paresthesia of skin; Z79.899 Other long term (current) drug therapy
CPT/HCPCS: 99211

== ENCOUNTER → 2018-12-25 | Outpatient (CLI) | payer MEDICARE ==
--- NOTE | 2018-12-25 15:04 | BD ---
EXAMINATION TYPE: Axial Bone Density DATE OF EXAM: 12/25/2018 COMPARISON: 08/28/2016 CLINICAL HISTORY: M 83.9 Height: 4'11 Weight: 149 FRAX RISK QUESTIONS: Secondary Osteoporosis: RISK FACTORS HISTORY OF: Active: n Postmenopausal woman: y Frequent falls: y MEDICATIONS: Additional Medications: cholesterol, blood pressure, depression Additional History: EXAM MEASUREMENTS: Bone mineral densitometry was performed using the [employer]. Bone mineral density as measured about the Lumbar spine is: ----- L1-L4(G/cm2): 1.261 T Score Values are as follows: ----- L2: 0.5 ----- L3: 1.4 ----- L4: 1.1 ----- L1-L4:0.7 Bone mineral density has: Decreased -6.2% since study of: 08/28/2016 Bone mineral density about the R hip (g/cm2): 0.943 Bone mineral density about the L hip (g/cm2): 0.864 T Score values are as follows: -----R Neck: -0.7 -----L Neck: -1.3 -----R Total: -0.5 -----L Total: -1.0 Bone mineral density has: Decreased -4.4% since study of: 08/28/2016 IMPRESSION: Osteopenia (T Score between -2.5 and -1). There is slightly increased risk of fracture and the patient may be considered for treatment. Re-Screen 2-5 years. NOTE: T-SCORE=SD OF THE YOUNG ADULT MEAN.
--- NOTE | 2018-12-27 11:44 | MM ---
Reason for exam: screening (asymptomatic). Last mammogram was performed 1 year ago. History: Patient is postmenopausal. Family history of premenopausal breast cancer in mother at age 31. Benign excisional biopsy of the left breast, 1996. Taking estrogen for 11 years 2 months beginning at age 59. Physical Findings: A clinical breast exam by your physician is recommended on an annual basis and results should be correlated with mammographic findings. MG 3D Screening Mammo W/Cad Bilateral CC and MLO view(s) were taken. Prior study comparison: December 10, 2017, bilateral MG 3d screening mammo w/cad. August 25, 2016, bilateral MG 3d screening mammo w/cad. There are scattered fibroglandular densities. There is chronic nodularity in the left breast. The lateral nodularity was present in 2017. No significant changes when compared with prior studies. ASSESSMENT: Benign, BI-RAD 2 RECOMMENDATION: Routine screening mammogram of both breasts in 1 year.
== END | disposition home or self-care (01) ==
LOC: RADMAMWWP 11:38
PROVIDERS: ATTEND Internal Medicine
DX: Z12.31 Encounter for screening mammogram for malignant neoplasm of breast (principal); M85.80 Other specified disorders of bone density and structure, unspecified site
CPT/HCPCS: 77063; 77067; 77080

== ENCOUNTER → 2019-02-13 | Outpatient (CLI) | payer MEDICARE ==
[2019-02-13 12:09] VITALS: BP 120/71; PULSE 66; RESP 18
--- NOTE | 2019-02-14 09:25 | P.PAINPG ---
Subjective Progress Note Date: 02/13/19 This is follow-up visit for this patient with a history of severe and chronic low back pain secondary to lumbar degenerative disc disease, lumbar spondylosis with facet arthropathy, Recently she underwent bilateral L4-5 and L5-S1 medial branch blocks on 07/09/2018 and 08/07/2018. She reports 100% relief from procedures, lasting 2 weeks, however she wants to hold off on radiofrequency ablation she has experienced some significant stressors in her life recently. Today her pain is still located in low back, rated a 4-8 out of 10. Pain is worse with any activity, better with lying down and medications. She continues to do daily exercises. She walks with a walker. She has been suffering from emotional stress, she recently lost her son to alcoholic cirrhosis as well as a sister. She does have unchanged bilateral lower extremity numbness primarily located in her calves. The patient currently on Percocet 5/325 every 6 hours when necessary ,Patient denies any side effect of the medication , patient denies any excessive drowsiness or sleepiness, Patient reported that the current medication is helping to control the pain and improve the activity of daily livings,Patient denies any motor or sensory deficit, denies any change in the bowel movement or urination, patient denies any fever or night sweats. Review of systems is negative for chest pain, shortness of breath, new onset weakness, numbness/tingling, abdominal pain, malaise, fever, chills, homicidal or suicidal ideation, or bowel incontinence. She does have chronic urinary incontinence and night sweats. Physical exam: Vitals: Reviewed in EMR GENERAL: Well appearing, in no acute distress PSYCH: Mood and affect is appropriate. Awake, alert, and oriented SKIN: Skin color, texture, turgor normal, no rashes or lesions HEENT: Normocephalic, atraumatic. EOM intact CV: No pedal edema RESP: Respirations are unlabored, no audible wheezing GI: Abdomen non-distended MUSCULOSKELETAL: Bilateral lower extremity strength is normal and symmetric. No atrophy or tone abnormalities are noted. Lumbar spine: Tenderness to palpation over the lumbar spine and paraspinous muscles. Positive for pain with facet loading and back extension/rotation bilaterally. Normal range of motion without pain reproduction Buttocks: No pain to palpation over the PSIS, sacroiliac joint maneuvers are negative for pain. Extremities: Peripheral joint ROM is full and pain free without obvious instability or laxity in all four extremities. No edema or skin discolorations noted. Gait: Gait is slow, antalgic, walker present in room NEUR: Bilateral lower extremity coordination and muscle stretch reflexes are physiologic and symmetric. Negative clonus bilaterally. Loss of sensation to light touch noted in bilateral feet Assessment and plan= chronic low back pain secondary to lumbar degenerative disc disease , lumbar spondylosis with lumbar facet arthropathy She reports 100% relief lasting 2 weeks from lumbar medial branch blocks at L3, L4, L5 bilaterally. She would be an excellent candidate for radiofrequency ablation. She currently wants to hold off on radiofrequency ablation as she has experienced some significant stressors in her life. At next visit, we will readdress this. She has also recently changed insurance companies, so we will require new authorization. chronic and current use of high-risk medication (opioids) Patient denies any side effects of the current pain medication and the current treatment/medication helping the patient to do activity of daily living , Diagnoses, prognosis, treatment options, including but not limited to physical therapy, medication management, interventional therapies, and surgery, were discussed with the patient All the questions answered Patient was counseled on importance of continued daily exercises and weight loss MAPS Reviewed and it was appropriate . UDS reviewed Prescriptions were refilled today, we did have a discussion about opioid dose reduction, she is amenable to this plan after radiofrequency ablation. Follow-up: In 8 weeks for medication management PQRS Measure Charge Sheet Measure #130: Documentation of Current Meds in Medical Chart: Patient's medications documented in chart Measure #226: Tobacco Use: Screen & Cessation Intervention: Pt not a tobacco user Measure #111: Pneumonia Vaccination: Pneumococcal vaccine administered or previously received Measure #47: Advance Care Plan: Advance care planning discussed & documented, pt chose/unable to give Measure #412: Opioid Treatment Agreement: Documented signed opioid trtmnt agreemnt min once during opioid trtmnt Measure #408: Opioid Therapy Follow-up Evaluation: Patient had f/u eval minimum every 3 months during opioid therapy Measure #317: Preventitive Care & Scrn High Bld Press & F/U: Normal blood p ressure, f/u not required Measure #128: Body Mass Index (BMI) Screening & Follow-up: BMI documented ABOVE normal parameters - f/u documented Measure #131: Pain Assessment & Follow-up: Pain positive & plan documented, Follow-up scheduled Measure #431: Unhealthy Alcohol Use Preventative Care & Scrn: Patient not identified as an unhealthy alcohol user PQRS Measure Charge Sheet PQRS Narrative: Smoking Status Former smoker Narcotic Agreement Date Signed 02/25/18 Pain Intensity [Lower Back] 7 Hx Alcohol Use (MH) No Home Medications: Ambulatory Orders Atenolol [Tenormin] 50 mg PO HS 07/28/13 Atorvastatin [Lipitor] 20 mg PO HS 07/28/13 Lansoprazole [Prevacid] 15 mg PO PC-LUNCH 07/28/13 Sertraline HCl 100 mg PO HS 12/31/13 amLODIPine [Norvasc] 5 mg PO BID 04/26/15 Olmesartan Medoxomil [Benicar] 40 mg PO DAILY 10/15/17 Biotin 5,000 mcg PO DAILY 07/04/18 Cholecalciferol [Vitamin D3 (25 Mcg = 1000 Iu)] 5,000 unit PO MOWEFR 07/04/18 Docusate [Colace] 200 mg PO HS 07/04/18 Loratadine [Claritin] 10 mg PO DAILY 07/04/18 Memantine [Namenda] 5 mg PO BID 07/04/18 Multivitamins, Thera [Multivitamin (formulary)] 1 tab PO DAILY 07/04/18 oxyCODONE HCL/ACETAMINOPHEN [Percocet 5-325 mg] 1 tab PO Q6HR PRN 30 Days #120 tab 08/05/18 L.acidoph,Paracasei, B.lactis [Probiotic] 1 each PO DAILY 11/20/18 Fiber Tablet 1 tab PO DAILY 02/10/19 Controlled Substance Measures - Controlled Substance Measures Is patient prescribed a controlled substance at discharge?: Yes When asked, does pt state using other controlled substances?: No If prescribed controlled substance>3 days was MAPS reviewed?: Yes If Rx opioid, was Start Talking consent form obtained?: Yes If opioid is for acute pain is fill amount 7 days or less?: No Was information provided regarding opioid addiction?: Yes
== END | disposition home or self-care (01) ==
LOC: PNWHC3 11:49
PROVIDERS: ATTEND Anesthesiology
DX: G89.29 Other chronic pain (principal); M51.36 Other intervertebral disc degeneration, lumbar region; M47.816 Spondylosis without myelopathy or radiculopathy, lumbar region; M46.96 Unspecified inflammatory spondylopathy, lumbar region; Z87.891 Personal history of nicotine dependence; Z79.899 Other long term (current) drug therapy; Z79.891 Long term (current) use of opiate analgesic
CPT/HCPCS: 99211

== ENCOUNTER → 2019-04-10 | Outpatient (CLI) | payer MEDICARE ==
[2019-04-10 12:25] VITALS: BP 116/65; PULSE 65; RESP 16
--- NOTE | 2019-04-10 15:09 | P.PAINPG ---
Subjective Progress Note Date: 04/10/19 This is a follow-up visit for this 78 years old female with a chronic history of severe chronic low back pain she states most with lumbar spondylosis with lumbar facet arthropathy and lumbar degenerative disc disease, previously we have done diagnostic medial branch block lumbar area, and she got excellent pain relief after each diagnostic medial branch block and we were waiting for insurance approval, currently she is on Percocet 5/325 every 6 hours, and she stopped using Neurontin because she had side effects, she is currently on Percocet only, denies any side effect of the medication she denies any excessive drowsiness or sleepiness she denies any suicidal ideation, she denies any new onset of w eakness, she is able to ambulate using a walker, Review of the system is negative for any chest pain negative for shortness of breath, negative for any new onset of weakness or numbness or abdominal pain, negative for night sweats negative for chills Objective - Vital Signs Vital signs: Vital Signs Temp Pulse 65 04/10/19 12:15 Resp 16 04/10/19 12:15 BP 116/65 04/10/19 12:15 Pulse Ox 97 04/10/19 12:15 - Exam Physical Examinations : -Constitutiona : Cooperative , not in acute distress . -HEENT : nech : supple , no Lymphadenopathy , normal thyroid size . : eyes : no ptosis , no icterus, no photophobia . : ENT : normal of hearing , normal oropharynx , no Thrush . - Respiratory : Chest clear to auscultations Bilaterally , no wheezing , no Rhonchi . - Cardiovascula : regular rate and rhythem , S1 , S2 , no S3 , no S4. - Gastrointestina : abdomen soft no tenderness , bowel sounds , no organomegally . - Genitourinary : Defferred . - neurologic : Cranial nerve II to XII intact , no focal neurological deffecit . -psychatric : alert , oriented X 3 , appropriate affect , intact judgment and insight . -Lymphatic : no Lymphadenopathy . - musculoskeltal : Lumber spine moter stegnth lower extremities ,thigh and legs 5/5 Right side , 5/5 Left side deep tendon reflexes : normal Knee Jerk , normal ankle Jerk lumber facet Loading Test =positive Right , positive Left Range of motion of the lumbar spine Flexion 30 degrees, extension 10 degrees strait leg raising test = positive at 30degree Fabere test= positive Right , and positive LT . tenderness over the Sacroiliac joint on the Right , and Left sides Assessment and Plan Plan: Assessment and plan= chronic low back pain secondary to lumbar degenerative disc disease , lumbar spondylosis with lumbar facet arthropathy . Patient had positive results after the diagnostic medial branch block lumbar area x2. chronic and current use of high-risk medication (opioids) Patient denies any side effects of the current pain medication and the current treatment/medication helping the patient to do activity of daily living , Diagnoses, prognosis, treatment options, including but not limited to phys ical therapy, medication management, interventional therapies, and surgery, were discussed with the patient All the questions answered The narcotic consent was signed and patient agreed and understood the side effects and complications of opioid treatment. Patient signed the narcotic agreement, and was orally counseled, not to overuse, not to abuse, not to Divert , not tp sell pain medication, and to take it as prescribed only, Patient was counseled not to drive or operate heavy equipment while using narcotic medication, and advised not to use alcohol or any Illicit drugs while using the narcotis. understanding that lack of compliance with any of the above instructions, will likely to cause discharge from, the pain service, not to renew his narcotic prescriptions MAPS Reviwed and it was apropriate . Medication managements= patient will be given prescription refills for Percocet 5/325 every 6 hours dispensed 120 with 1 refills Interventions= patient will be good candidate to have RFA of the medial branch lumbar area will do the right side first at L3 , L4, L5 , Time with Patient: Less than 30 PQRS Measure Charge Sheet Measure #130: Documentation of Current Meds in Medical Chart: Patient's medications documented in chart Measure #226: Tobacco Use: Screen & Cessation Intervention: Pt not a tobacco user Measure #111: Pneumonia Vaccination: Pneumococcal vaccine administered or previously received Measure #47: Advance Care Plan: Advance care planning discussed & documented, pt chose/unable to give Measure #412: Opioid Treatment Agreement: Documented signed opioid trtmnt a greemnt min once during opioid trtmnt Measure #408: Opioid Therapy Follow-up Evaluation: Patient had f/u eval minimum every 3 months during opioid therapy Measure #317: Preventitive Care & Scrn High Bld Press & F/U: Normal blood pressure, f/u not required Measure #128: Body Mass Index (BMI) Screening & Follow-up: BMI documented ABOVE normal parameters - f/u documented Measure #131: Pain Assessment & Follow-up: Pain positive & plan documented, Follow-up scheduled Measure #431: Unhealthy Alcohol Use Preventative Care & Scrn: Patient not identified as an unhealthy alcohol user PQRS Narrative: Smoking Status Former smoker Narcotic Agreement Date Signed 02/25/18 Blood Pressure 116/65 Pain Intensity [Lower Back] 6 Scale Used Numeric (1 - 10) Hx Alcohol Use (MH) No Home Medications: Ambulatory Orders Atenolol [Tenormin] 50 mg PO HS 07/28/13 Atorvastatin [Lipitor] 20 mg PO HS 07/28/13 Lansoprazole [Prevacid] 15 mg PO PC-LUNCH 07/28/13 Sertraline HCl 100 mg PO HS 12/31/13 amLODIPine [Norvasc] 5 mg PO BID 04/26/15 Olmesartan Medoxomil [Benicar] 40 mg PO DAILY 10/15/17 Biotin 5,000 mcg PO DAILY 07/04/18 Cholecalciferol [Vitamin D3 (25 Mcg = 1000 Iu)] 5,000 unit PO MOWEFR 07/04/18 Docusate [Colace] 200 mg PO HS 07/04/18 Loratadine [Claritin] 10 mg PO DAILY 07/04/18 Memantine [Namenda] 5 mg PO BID 07/04/18 Multivitamins, Thera [Multivitamin (formulary)] 1 tab PO DAILY 07/04/18 oxyCODONE HCL/ACETAMINOPHEN [Percocet 5-325 mg] 1 tab PO Q6HR PRN 30 Days #120 tab 08/05/18 L.acidoph,Paracasei, B.lactis [Probiotic] 1 each PO DAILY 11/20/18 Fiber Tablet 1 tab PO DAILY 02/10/19 Calcium Carbonate [Calcium] 600 mg PO BID 04/03/19 Controlled Substance Measures - Controlled Substance Measures Is patient prescribed a controlled substance at discharge?: Yes When asked, does pt state using other controlled substances?: No If prescribed controlled substance>3 days was MAPS reviewed?: Yes If Rx opioid, was Start Talking consent form obtained?: Yes If opioid is for acute pain is fill amount 7 days or less?: No Was information provided regarding opioid addiction?: Yes
== END | disposition home or self-care (01) ==
LOC: PNWHC3 12:02
PROVIDERS: ATTEND Specialist
DX: G89.29 Other chronic pain (principal); M51.36 Other intervertebral disc degeneration, lumbar region; M47.816 Spondylosis without myelopathy or radiculopathy, lumbar region; Z87.891 Personal history of nicotine dependence; Z79.899 Other long term (current) drug therapy
CPT/HCPCS: 99211

== ENCOUNTER → 2019-07-16 | Outpatient (CLI) | payer MEDICARE ==
[2019-07-16 13:53] VITALS: BP 111/59; PULSE 63; RESP 16
--- NOTE | 2019-07-16 14:16 | P.PN ---
Progress Note - Text Progress Note Date: 07/16/19 Progress Note Date: 02/13/19 78-year-old woman who presents for follow-up visit with chief complaint of low back pain. We have performed bilateral diagnostic lumbar medial branch blocks at the L4-L5 and L5-S1 facet joints bilaterally. She had excellent relief greater than 80% of both. She is hesitant to proceed with a radiofrequency ablation. She currently is requesting the radio frequency ablation. VAS today is an 8 out of 10 in severity she is having significant difficulty with walking and performing ADLs. She's using a 4 point walker for the first time in her life. Patient states pain is a throbbing, aching, shooting pain across her low back. Worse with standing and ambulation or any activity. This better with rest. Review of systems is negative for chest pain, shortness of breath, new onset weakness, numbness/tingling, abdominal pain, malaise, fever, chills, homicidal or suicidal ideation, or bowel incontinence. She does have chronic urinary incontinence and night sweats. Physical exam: Vitals: Reviewed in EMR GENERAL: Well appearing, in no acute distress PSYCH: Mood and affect is appropriate. Awake, alert, and oriented SKIN: Skin color, texture, turgor normal, no rashes or lesions HEENT: Normocephalic, atraumatic. EOM intact CV: No pedal edema RESP: Respirations are unlabored, no audible wheezing GI: Abdomen non-distended MUSCULOSKELETAL: Bilateral lower extremity strength is normal and symmetric. No atrophy or tone abnormalities are noted. Lumbar spine: Tenderness to palpation over the lumbar spine and paraspinous muscles. Positive for pain with facet loading and back extension/rotation bilaterally. Normal range of motion without pain reproduction Buttocks: No pain to palpation over the PSIS, sacroiliac joint maneuvers are negative for pain. Extremities: Peripheral joint ROM is full and pain free without obvious instability or laxity in all four extremities. No edema or skin discolorations noted. Gait: Gait is slow, antalgic, utilizes 4 point walker for ambulation, patient transitions poorly NEUR: Bilateral lower extremity coordination and muscle stretch reflexes are physiologic and symmetric. Negative clonus bilaterally. Loss of sensation to light touch noted in bilateral feet Assessment and plan: 1. Lumbar spondylosis without myelopathy 2. Lumbar degenerative disc disease. 3. Bilateral lumbosacral spondylosis Plan: 1. Patient will return to clinic for bilateral lumbar radio frequency ablation at L4-L5 and L5-S1. I discussed the risks and benefits with the patient in detail. They include but not limited to infection, bleeding, rare nerve injury. Patient understands these risks and wishes to proceed. We'll get her scheduled for the next available date.
== END | disposition home or self-care (01) ==
LOC: PNWHC3 13:32
PROVIDERS: ATTEND Anesthesiology
DX: M51.36 Other intervertebral disc degeneration, lumbar region (principal); M47.816 Spondylosis without myelopathy or radiculopathy, lumbar region; M47.817 Spondylosis without myelopathy or radiculopathy, lumbosacral region; Z98.890 Other specified postprocedural states
CPT/HCPCS: 99211

== ENCOUNTER 2019-07-29 09:46 | Day surgery (SDC) | payer MEDICARE ==
[2019-07-28 11:37] VITALS: BMI 32.1
[2019-07-29 10:16] VITALS: TEMP 97.2
[2019-07-29] MEDS ORDERED: LIDOCAINE 1% (10MG/ML) FOR IV START INTRADERMA ONE (10:19)
[2019-07-29] MEDS ORDERED: MIDAZOLAM 2 MG/2 ML VIAL ONE (10:34)
[2019-07-29] MEDS ORDERED: methylPREDNISolone ACETATE 40 MG/ML 1 ML VIAL ONE (10:34)
[2019-07-29] MEDS ORDERED: ROPIVACAINE 5MG/ML 20ML VIAL ONE (10:34)
[2019-07-29] MEDS ORDERED: fentaNYL (PF) 50 MCG/ML 2 ML AMP ONE (10:34)
--- NOTE | 2019-07-29 11:05 | P.PCN ---
Date of Procedure: 07/29/19 Procedure(s) Performed: PREOPERATIVE DIAGNOSIS: 1-Lumbar Spondylosis with Facet Arthropathy without myelopathy. 2- Lumber degenerative disc disease POSTOPERATIVE DIAGNOSIS: 1- Lumbar Spondylosis with Facet Arthropathy without myelopathy. 2- Lumber degenerative disc disease PROCEDURES : Bilateral Radiofrequency thermocoagulation, L3 , L4 , and L5 medial branch, with fluoroscopic guidance (fluoroscopy images available in the radiology department) ( to denervate the facet joint at bilateral L4-5 ,and L5-S1 levels ) ANESTHESIA: Moderate sedation with intravenous versed 2 mg and fentaneyl 100 mcg, and local infiltration with Ropivacaine 0.5 % . EBL: Minimal PROCEDURE INDICATION: The patient with low back pain secondary to lumbar facet arthropathy who had more than 50% relief of her pain with previous diagnostic lumbar medial branch block with bupivacaine. PROCEDURE DESCRIPTION / TECHNIQUE: The patient was seen and identified in the preoperative area. Risks, benefits, complications, including but not limited to risk of infection ,bleeding , allergic reactions to the medications and no complete pain releife , and alternatives were discussed with the patient, the patient agreed to proceed with the procedure and signed the consent. IV was started. Vital signs remained stable throughout the procedure. Patient was taken to the OR and time out was completed. The patient was placed in the prone position on the procedure table. The lumber area was prepped and draped in the usual sterile fashion. . Vital signs were closely monitored during the procedure .IV sedation was used during the procedure to decrease patients a nxiety. Using AP and then oblique fluoroscopy, the ``eye of the Kris dog corresponding to the connection between the superior and transverse articular processes of right L3, L4, and L5 were identified, marked, and localized with 1% lidocaine. Subsequently, a 18 -wj (VENUM ) radiofrequency cannula with a 10-mm active tip was advanced guided by fluoroscopy to each of the``eyes of the Kris dog at right L3, L4, and L5. Each site then underwent sensory testing at 50 Hz and 0 to 1 volt and motor testing at 2.5 Hz and 0 to 3 volt with local stimulation, but no radicular symptoms down the legs. Thereafter each sites underwent radiofrequency thermocoagulation at 80 degrees celsius for 90 seconds after injecting 0.5 ml of PF Ropivacaine 1ml, then after the thermocoagulation done , 1 ml of the block solution containing Depo-Medrol 20 mg and 3 ml of Ropivacaine 0.5% was injected at the right L3 , L4 , and L5 , levels after negative aspiration of CSF and blood and with no paresthesias. Cannulas were retracted while injecting lidocaine 1% until the needle is out. The same procedure was repeated at the level of Left L3, L4, and L5 levels. At the end of the procedure, the skin was cleansed and bandages were applied. COMPLICATIONS: No acute complications. DISPOSITION / PLANS: The patient was placed in a supine position and transferred to the recovery area in a stable condition for observation and was discharged from the recovery room after meeting discharge criteria. Home discharge instructions given to the patient by the staff. The patient was reexamined prior to discharge. The patient will schedule a follow up in the clinic in 2-4 weeks.
[2019-07-29] MEDS ORDERED: IV FLUID CONTINUATION 1,000 ML IV ONE (11:11)
[2019-07-29 11:16] VITALS: RESP 16
[2019-07-29 11:24] VITALS: BP 139/97; PULSE 60
--- NOTE | 2019-07-29 12:18 | FL ---
EXAMINATION TYPE: FL guided pain mgmt statistic DATE OF EXAM: 07/29/2019 HISTORY: Pain RADIO FREQ BILAT LUMBAR . 22 SEC FL TIME. 6 PICS SCANNED
== END 2019-07-29 11:40 ==
LOC: ORPAIN 09:46
PROVIDERS: ATTEND Specialist
DX: M47.816 Spondylosis without myelopathy or radiculopathy, lumbar region (principal); M51.36 Other intervertebral disc degeneration, lumbar region; I10 Essential (primary) hypertension; Z88.5 Allergy status to narcotic agent; Z88.8 Allergy status to other drugs, medicaments and biological substances
CPT/HCPCS: 64635; 64636; J2250; J1030; J3010; J2795; 99152

== ENCOUNTER → 2019-08-13 | Outpatient (CLI) | payer MEDICARE ==
--- NOTE | 2019-08-13 12:46 | P.PAINPG ---
Subjective Progress Note Date: 08/13/19 This is a follow-up visit for this 78 years old female with a chronic history of severe chronic low back pain she states most with lumbar spondylosis with lumbar facet arthropathy ,and lumbar degenerative disc disease , recently we did RFA of the medial branch lumbar area bilaterally , currently she is on Percocet 5/325 every 6 hours, and she stopped using Neurontin because she had side effects, she is currently on Percocet only, denies any side effect of the medication she denies any excessive drowsiness or sleepiness she denies any suicidal ideation, she denies any new onset of weakness, she is able to ambulate using a walker, Review of the system is negative for any chest pain negative for shortness of breath, negative for any new onset of weakness or numbness or abdominal pain, negative for night sweats negative for chills Objective - Exam -Constitutiona : Cooperative , not in acute distress . -HEENT : nech : supple , no Lymphadenopathy , normal thyroid size . : eyes : no ptosis , no icterus, no photophobia - neurologic : Cranial nerve II to XII intact , no focal neurological deffecit . -psychatric : alert , oriented X 3 , appropriate affect , intact judgment and insight . -Lymphatic : no Lymphadenopathy . - musculoskeltal : Lumber spine moter stegnth lower extremities ,thigh and legs 4/5 Right side , 4/5 Left side deep tendon reflexes : normal Knee Jerk , normal ankle Jerk lumber facet Loading Test =positive Right , positive Left Range of motion of the lumbar spine Flexion 30 degrees, extension 10 degrees strait leg raising test = positive at 30degree Fabere test= positive Right , and positive LT . tenderness over the Sacroiliac joint on the Right , and Left sides Assessment and Plan Plan: chronic low back pain secondary to lumbar degenerative disc disease , lumbar spondylosis with lumbar facet arthropathy . Status post RFA of the medial branch lumbar area bilaterally (done recently) chronic and current use of high-risk medication (opioids) Patient denies any side effects of the current pain medication and the current treatment/medication helping the patient to do activity of daily living , Diagnoses, prognosis, treatment options, including but not limited to physical therapy, medication management, interventional therapies, and surgery, were discussed with the patient All the questions answered The narcotic consent was signed and patient agreed and understood the side effects and complications of opioid treatment. Patient signed the narcotic agreement, and was orally counseled, not to overuse, not to abuse, not to Divert , not tp sell pain medication, and to take it as prescribed only, Patient was counseled not to drive or operate heavy equipment while using narcotic medication, and advised not to use alcohol or any Illicit drugs while using the narcotis. understanding that lack of compliance with any of the above instructions, will likely to cause discharge from, the pain service, not to renew his narcotic prescriptions MAPS Reviwed and it was apropriate . Medication managements= patient will be given prescription refills for Percocet 5/325 every 6 hours dispensed 120 with 1 refills Urine drug screen ordered today. Narcotic agreement signed today Time with Patient: Less than 30 PQRS Measure Charge Sheet Measure #130: Documentation of Current Meds in Medical Chart: Patient's medicati ons documented in chart Measure #226: Tobacco Use: Screen & Cessation Intervention: Pt not a tobacco user Measure #111: Pneumonia Vaccination: Pneumococcal vaccine administered or previously received Measure #47: Advance Care Plan: Advance care planning discussed & documented, pt chose/unable to give Measure #412: Opioid Treatment Agreement: Documented signed opioid trtmnt agreemnt min once during opioid trtmnt Measure #408: Opioid Therapy Follow-up Evaluation: Patient had f/u eval minimum every 3 months during opioid therapy Measure #317: Preventitive Care & Scrn High Bld Press & F/U: Normal blood pressure, f/u not required Measure #128: Body Mass Index (BMI) Screening & Follow-up: BMI documented ABOVE normal parameters - f/u documented Measure #131: Pain Assessment & Follow-up: Pain positive & plan documented, Follow-up scheduled Measure #431: Unhealthy Alcohol Use Preventative Care & Scrn: Patient not identified as an unhealthy alcohol user PQRS Narrative: Smoking Status Former smoker Narcotic Agreement Date Signed 02/13/19 Hx Alcohol Use (MH) Yes Home Medications: Ambulatory Orders Atenolol [Tenormin] 50 mg PO HS 07/28/13 Atorvastatin [Lipitor] 20 mg PO HS 07/28/13 Lansoprazole [Prevacid] 15 mg PO PC-LUNCH 07/28/13 Sertraline HCl 100 mg PO HS 12/31/13 amLODIPine [Norvasc] 5 mg PO BID 04/26/15 Olmesartan Medoxomil [Benicar] 40 mg PO DAILY 10/15/17 Biotin 5,000 mcg PO DAILY 07/04/18 Cholecalciferol [Vitamin D3 (25 Mcg = 1000 Iu)] 5,000 unit PO MOWEFR 07/04/18 Docusate [Colace] 200 mg PO HS 07/04/18 Loratadine [Claritin] 10 mg PO DAILY 07/04/18 Memantine [Namenda] 5 mg PO BID 07/04/18 Multivitamins, Thera [Multivitamin (formulary)] 1 tab PO DAILY 07/04/18 L.acidoph,Paracasei, B.lactis [Probiotic] 1 each PO DAILY 11/20/18 Calcium Carbonate [Calcium] 600 mg PO BID 04/03/19 oxyCODONE HCL/ACETAMINOPHEN [Percocet 5-325 mg] 1 tab PO Q6HR PRN 30 Days #120 tab 05/12/19 Controlled Substance Measures - Controlled Substance Measures Is patient prescribed a controlled substance at discharge?: Yes When asked, does pt state using other controlled substances?: No If prescribed controlled substance>3 days was MAPS reviewed?: Yes If Rx opioid, was Start Talking consent form obtained?: Yes If opioid is for acute pain is fill amount 7 days or less?: No Was information provided regarding opioid addiction?: Yes
== END | disposition home or self-care (01) ==
LOC: PNWHC3 12:45
PROVIDERS: ATTEND Specialist
DX: G89.29 Other chronic pain (principal); M51.36 Other intervertebral disc degeneration, lumbar region; M47.816 Spondylosis without myelopathy or radiculopathy, lumbar region; Z98.890 Other specified postprocedural states; Z87.891 Personal history of nicotine dependence; Z79.899 Other long term (current) drug therapy
CPT/HCPCS: 80307; G0482

== ENCOUNTER → 2019-10-08 | Outpatient (CLI) | payer MEDICARE ==
[2019-10-08 13:18] VITALS: BP 103/59; PULSE 76; RESP 14
--- NOTE | 2019-10-08 13:19 | P.PN ---
Subjective Progress Note Date: 10/08/19 This is a follow-up visit for this 78 years old female with a chronic history of severe chronic low back pain, she is Diagnosed with lumbar spondylosis with lumbar facet arthropathy ,and lumbar degenerative disc disease , recently we did RFA of the medial branch lumbar area bilaterally , currently she is on Percocet 5/325 every 6 hours, and she stopped using Neurontin because she had side effects, she is currently on Percocet 5/325 only, denies any side effect of the medication she denies any excessive drowsiness or sleepiness she denies any suicidal ideation, she denies any new onset of weakness, she is able to ambulate using a walker, but she reported that any activity of daily livings increased her pain interfere with her quality of life and most of her pain now is in the buttock area bilaterally Review of the system is negative for any chest pain negative for shortness of breath, negative for any new onset of weakness or numbness or abdominal pain, negative for night sweats negative for chills Physical Examinations : -Constitutiona : Cooperative , not in acute distress . -HEENT : nech : supple , no Lymphadenopathy , normal thyroid size . : eyes : no ptosis , no icterus, no photophobia . - neurologic : Cranial nerve II to XII intact , no focal neurological deffecit . -psychatric : alert , oriented X 3 , appropriate affect , intact judgment and insight . -Lymphatic : no Lymphadenopathy . - musculoskeltal : Lumber spine moter stegnth lower extremities ,thigh and legs 5/5 Right side , 5/5 Left side deep tendon reflexes : normal Knee Jerk , normal ankle Jerk lumber facet Loading Test =positive Right , positive Left Range of motion of the lumbar spine Flexion 30 degrees, extension 10 degrees strait leg raising test = positive at 45 degree Fabere test= positive Right , and positive LT . Sever tenderness over the Sacroiliac joint on the Right , and Left sides Gaenslen test= positive right ,and positive left . Seated flexion test= positive right ,and positive Left . Assessment and Plan chronic low back pain secondary to lumbar degenerative disc disease , lumbar spondylosis with lumbar facet arthropathy . Bilateral sacroiliitis Status post RFA of the medial branch lumbar area bilaterally (done recently) chronic and current use of high-risk medication (opioids) Patient denies any side effects of the current pain medication and the current treatment/medication helping the patient to do activity of daily living , Diagnoses, prognosis, treatment options, including but not limited to physical therapy, medication management, interventional therapies, and surgery, were discussed with the patient All the questions answered The narcotic consent was signed and patient agreed and understood the side effects and complications of opioid treatment. Patient signed the narcotic agreement, and was orally counseled, not to overuse, not to abuse, not to Divert , not tp sell pain medication, and to take it as prescribed only, Patient was counseled not to drive or operate heavy equipment while using narcotic medication, and advised not to use alcohol or any Illicit drugs while using the narcotis. understanding that lack of compliance with any of the above instructions, will likely to cause discharge from, the pain service, not to renew his narcotic prescriptions MAPS Reviwed and it was apropriate . Medication managements= patient will be given prescription refills for Percocet 5/325 every 6 hours dispensed 120 with 1 refills Urine drug screen reviewed today and it was appropriate Narcotic agreement signed Interventions= patient could benefit from bilateral sacroiliac joint steroid injections under fluoroscopy guidance Time with Patient: Less than 30 PQRS Measure Charge Sheet Measure #130: Documentation of Current Meds in Medical Chart: Patient's medications documented in chart Measure #226: Tobacco Use: Screen & Cessation Intervention: Pt not a tobacco user Measure #111: Pneumonia Vaccination: Pneumococcal vaccine administered or previously received Measure #47: Advance Care Plan: Advance care planning discussed & documented, pt chose/unable to give Measure #412: Opioid Treatment Agreement: Documented signed opioid trtmnt agreemnt min once during opioid trtmnt Measure #408: Opioid Therapy Follow-up Evaluation: Patient had f/u eval minimum every 3 months during opioid therapy Measure #317: Preventitive Care & Scrn High Bld Press & F/U: Normal blood pressure, f/u not required Measure #128: Body Mass Index (BMI) Screening & Follow-up: BMI documented ABOVE normal parameters - f/u documented Measure #131: Pain Assessment & Follow-up: Pain positive & plan documented, Follow-up scheduled Measure #431: Unhealthy Alcohol Use Preventative Care & Scrn: Patient not identified as an unhealthy alcohol user PQRS Narrative: - Controlled Substance Measures Is patient prescribed a controlled substance at discharge?: Yes When asked, does pt state using other controlled substances?: No If prescribed controlled substance>3 days was MAPS reviewed?: Yes If Rx opioid, was Start Talking consent form obtained?: Yes If opioid is for acute pain is fill amount 7 days or less?: No Was information provided regarding opioid addiction?: Yes Objective - Vital Signs Vital signs: Intake & Output 10/07/19 10/08/19 10/08/19 18:59 06:59 18:59 Weight 72.121 kg
== END | disposition home or self-care (01) ==
LOC: PNWHC3 12:40
PROVIDERS: ATTEND Specialist
DX: M47.816 Spondylosis without myelopathy or radiculopathy, lumbar region (principal); M51.36 Other intervertebral disc degeneration, lumbar region; M46.96 Unspecified inflammatory spondylopathy, lumbar region; M46.1 Sacroiliitis, not elsewhere classified; G89.29 Other chronic pain
CPT/HCPCS: 99211

== ENCOUNTER 2019-10-28 08:59 | Day surgery (SDC) | payer MEDICARE ==
[2019-10-27 11:21] VITALS: BMI 32.3
[2019-10-28] MEDS ORDERED: LACTATED RINGERS 1,000 ML IV SCH (09:01)
[2019-10-28 09:20] VITALS: RESP 16; TEMP 98.3
[2019-10-28] MEDS ORDERED: TRIAMCINOLONE ACETONIDE 40 MG/ML 1 ML VIAL ONE (09:26)
[2019-10-28] MEDS ORDERED: ROPIVACAINE 5MG/ML 20ML VIAL ONE (09:26)
[2019-10-28] MEDS ORDERED: MIDAZOLAM 2 MG/2 ML VIAL ONE (09:26)
[2019-10-28] MEDS ORDERED: IOPAMIDOL M200 10 ML VIAL ONE (09:26)
--- NOTE | 2019-10-28 09:44 | P.PCN ---
Date of Procedure: 10/28/19 Description of Procedure: Preoperative diagnoses: bilateral sacroilitis Postoperative diagnoses: bilateral sacroilitis. Procedure: bilateral sacroiliac joint steroid injection under fluoroscopic guidance. Surgeon: Vasquez Guidry MD Anesthesia: [2 mL of 1% lidocaine and moderate sedation per hospital guidelines], sedation time 13 min Fluoroscopy was used for the procedure and fluoroscopic images were saved to the radiology portion of the patient's chart. EBL: None Procedure indication: The patient had a history of severe chronic low back pain, diagnosed with sacroiliitis unresponsive to conservative treatment. Procedure description: The patient was seen and identified in the preoperative holding area, risks and benefits and alternative of the procedure and possible complications discussed with the patient, and patient agreed with the preceding, patient signed the consent, an IV was started, and vital signs were monitored and were stable throughout the procedure, patient was placed in the prone position on table and the lumbosacral area was prepped and draped with a sterile fashion, vital signs were closely monitored during the procedure, the fluoroscopy camera was placed in the contralateral oblique view on the bilateral sacroiliac joint and the lower part of the joint was identified . Then the skin and subcutaneous tissue was anesthetized using 2 mL of 1% lidocaine then a 22- gauge Quincke-type spinal needle advanced slowly under fluoroscopy and placed in the posterior and inferior border of the right sacroiliac joint, placement confirmed with AP and lateral view, and after appropriate needle placement confirmed and after negative aspiration for heme, 1 mL of Isovue 200 was injected revealing intra-articular spread. Then a solution consisting of 2 ml of ropivacaine 0.5% and 40 mg of Kenalog injected after negative aspiration, no paresthesia during the injection, no resistance to injection, and the needle was removed. The procedure was then repeated on the left side. Total of 80 mg of Kenalog was used for the procedure. Patient tolerated the procedure well without any complication. The patient was returned to supine position after the back was cleaned and a Band-Aid applied, the patient was transported to recovery room in stable condition and monitored for 30 minutes before being discharged home. The patient will follow up with the pain clinic in a few weeks
[2019-10-28] MEDS ORDERED: IV FLUID CONTINUATION 750 ML IV ONE (09:49)
[2019-10-28 09:55] VITALS: BP 124/67
[2019-10-28 10:06] VITALS: PULSE 55
--- NOTE | 2019-10-28 10:06 | FL ---
EXAMINATION TYPE: FL guided pain mgmt statistic DATE OF EXAM: 10/28/2019 HISTORY: Fluoroscopy time 13 seconds of fluoroscopy provided. IMPRESSION: 1. Fluoroscopy time.
== END 2019-10-28 10:22 | disposition home or self-care (01) ==
LOC: ORPAIN 08:59
PROVIDERS: ATTEND Anesthesiology
DX: G89.29 Other chronic pain (principal); M46.1 Sacroiliitis, not elsewhere classified; Z88.5 Allergy status to narcotic agent; Z88.8 Allergy status to other drugs, medicaments and biological substances; Z88.6 Allergy status to analgesic agent
CPT/HCPCS: J2250; J3301; Q9966; J2795; G0260; 99152

== ENCOUNTER 2019-11-13 09:29 | Day surgery (SDC) | payer MEDICARE ==
[2019-11-12 09:39] VITALS: BMI 33.1
[2019-11-13 10:20] VITALS: TEMP 96.5
[2019-11-13] MEDS ORDERED: fentaNYL (PF) 50 MCG/ML 2 ML AMP ONE (10:57)
[2019-11-13] MEDS ORDERED: MIDAZOLAM 2 MG/2 ML VIAL ONE (10:57)
[2019-11-13] MEDS ORDERED: ROPIVACAINE 5MG/ML 20ML VIAL ONE (10:57)
[2019-11-13] MEDS ORDERED: methylPREDNISolone ACETATE 40 MG/ML 1 ML VIAL ONE (10:57)
--- NOTE | 2019-11-13 11:14 | P.PCN ---
Date of Procedure: 11/13/19 Procedure(s) Performed: Procedure= bilateral sacroiliac joints steroid injection under fluoroscopy guidance (fluoroscopy image stored on file in the radiology Department ) Preoperative diagnosis= 1-sacroiliitis 2-lumbar degenerative disc disease 3- lumbar spondylosis with facet arthropathy Postoperative diagnosis=Same as preop Diagnosis . Complication = none Condition= stable Anesthesia= moderate sedation with intravenous Versed 2 mg , and fentanyl 50 micrograms . Indication for the procedure= patient complaining of low back pain , examination was positive for severe tenderness over the sacroiliac joints bilaterally and patient diagnosed with sacroiliitis, for this reason she was good candidate for sacroiliac joint steroid injection. Description of the procedure= procedure risk and benefits discussed with the patient, including but not limited, risk of infection and bleeding, and ALLERGIC reaction to the medication and not complete pain relief and patient agreed with the preceding patient taken to the operating room, placed in prone position or standard monitors applied to the patient then after induction of anesthesia back prepped with chlorhexidine 3 times , Then under strict sterile technique, first I did the right sacroiliac joint the which was identified under fluoroscopy guidance been local infiltration of the skin and subcu interstitial with lidocaine 1% then 22-gauge Quincke Needle advanced slowly under fluoroscopy and placed in the right sacroiliac joint need le placement confirmed with AP and oblique and lateral view and after appropriate needle placement confirmed and after negative aspiration, or heme , then Ropivacaine 0.5% 3 mL, and 20 mg of Depo-Medrol mixed together and injected in the right sacroiliac joint after negative aspiration patient tolerated the procedure well without any complication. Then the left sacroiliac joint steroid injection done under strict sterile technique local infiltration of the skin and subcu interstitial at the location of the left sacroiliac joint then a 22-gauge Quincke Needle advanced slowly under fluoroscopy time placed in the left sacroiliac joint, needle placement confirmed with AP and oblique and lateral view then after appropriate needle placement confirmed and after negative aspiration 0.5% Marcaine 3 mL and 20 mg of Depo-Medrol injected in the left sacroiliac joint after negative aspiration patient tolerated the procedure well that any complications and she will follow up in clinic 3 weeks
[2019-11-13] MEDS ORDERED: IV FLUID CONTINUATION 1,000 ML IV ONE (11:21)
[2019-11-13 11:25] VITALS: RESP 18
--- NOTE | 2019-11-13 11:36 | FL ---
EXAMINATION TYPE: FL guided pain mgmt statistic DATE OF EXAM: 11/13/2019 CLINICAL HISTORY: Bilateral sacroiliac joint pain. TECHNIQUE: Fluoroscopy. COMPARISON: None. FINDINGS: Fluoroscopic guidance was provided during pain relief procedure performed by Dr. Camarillo . A total of 5 seconds of fluoroscopic time was utilized during the procedure and two spot images ar e acquired. Images acquired not sent to PACS at time of dictation. IMPRESSION: As Above.
[2019-11-13 11:50] VITALS: BP 144/65; PULSE 65
== END 2019-11-13 11:55 | disposition home or self-care (01) ==
LOC: ORPAIN 09:29
PROVIDERS: ATTEND Specialist
DX: M46.1 Sacroiliitis, not elsewhere classified (principal); M51.36 Other intervertebral disc degeneration, lumbar region; M47.816 Spondylosis without myelopathy or radiculopathy, lumbar region; Z88.5 Allergy status to narcotic agent; Z88.8 Allergy status to other drugs, medicaments and biological substances; Z88.6 Allergy status to analgesic agent
CPT/HCPCS: J2250; J1030; J3010; J2795; G0260

== ENCOUNTER → 2019-12-03 | Outpatient (CLI) | payer MEDICARE ==
[2019-12-03 12:45] VITALS: BP 160/74; PULSE 67; RESP 20; TEMP 98.1
--- NOTE | 2019-12-03 12:55 | P.PAINPG ---
Subjective Progress Note Date: 12/03/19 Janet presents today for medication refill and follow-up. She is an 79-year-old female with back pain. She reports that she has pain across her low back and has progressive lower extremity weakness. She reports that this been going on for many years. She using a walker for 10 years. She reports an on the symptoms are new. There is no new weakness. She just doesn't the injections have offered some benefit but lately has not been helping much. The pain medication does help. Does not cause any side effects. Her VAS today is 6 out of 10. There is no upper extremity weakness numbness of 10. She is not having any falls. 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 She is atrophy of paraspinal muscles. She has tenderness palpation over the paraspinal mu scles. She has lower extremity strength is 4-5 bilaterally. Hamstring strength is 4-5. Quadriceps strength 4 out of 5. Neuro exam: Normal sensation in bilateral upper extremities, deep tendon ref lexes are 2+ bilateral upper extremities. Normal sensation in bilateral lower extremities. Deep tendon reflexes are 1+ in lower extremities (right total knee replaced) Psych exam: Cooperative, appropriate mood Assessment and Plan Assessment: #1 lumbar spondylosis without myelopathy #2 lumbar radiculopathy #3 sacroiliitis #4 obesity #5 chronic opioid dependence Plan: At this point we'll continue the current medication regimen. I'll not make any changes. We'll give her prescription for 2 months time since she's been stable on these medications. Maps checked, urine injections of and appropriate. All documentation is on the chart. PQRS Measure Charge Sheet Measure #130: Documentation of Current Meds in Medical Chart: Patient's medications documented in chart Measure #226: Tobacco Use: Screen & Cessation Intervention: Pt screened for tobacco use AND intervention given Measure #111: Pneumonia Vaccination: Pneumococcal vaccine administered or previously received Measure #47: Advance Care Plan: Advance care planning discussed & documented, plan or surrogate given Measure #412: Opioid Treatment Agreement: Documented signed opioid trtmnt agreemnt min once during opioid trtmnt Measure #408: Opioid Therapy Follow-up Evaluation: Patient had f/u eval minimum every 3 months during opioid therapy Measure #317: Preventitive Care & Scrn High Bld Press & F/U: Normal blood pressure, f/u not required Measure #128: Body Mass Index (BMI) Screening & Follow-up: BMI documented ABOVE normal parameters - f/u documented Measure #131: Pain Assessment & Follow-up: Pain positive & plan documented Measure #431: Unhealthy Alcohol Use Preventative Care & Scrn: Patient not identified as an unhealthy alcohol user PQRS Narrative: Smoking Status Former smoker Narcotic Agreement Date Signed 02/13/19 Blood Pressure 160/74 Pain Intensity [Bilateral 7 Lower Back] Scale Used Numeric (1 - 10) Hx Alcohol Use (MH) Yes Home Medications: Ambulatory Orders Atorvastatin [Lipitor] 20 mg PO HS 07/28/13 Lansoprazole [Prevacid] 15 mg PO PC-LUNCH 07/28/13 atenoloL [Tenormin] 50 mg PO HS 07/28/13 Sertraline HCl 100 mg PO HS 12/31/13 amLODIPine [Norvasc] 5 mg PO BID 04/26/15 Olmesartan Medoxomil [Benicar] 40 mg PO DAILY 10/15/17 Biotin 5,000 mcg PO DAILY 07/04/18 Cholecalciferol [Vitamin D3 (25 Mcg = 1000 Iu)] 5,000 unit PO MOWEFR 07/04/18 Docusate [Colace] 200 mg PO HS 07/04/18 Loratadine [Claritin] 10 mg PO DAILY 07/04/18 Memantine [Namenda] 5 mg PO BID 07/04/18 Multivitamins, Thera [Multivitamin (formulary)] 1 tab PO DAILY 07/04/18 L.acidoph,Paracasei, B.lactis [Probiotic] 1 each PO DAILY 11/20/18 Calcium Carbonate [Calcium] 600 mg PO BID 04/03/19 Fluticasone Nasal [place] [Flonase Nasal [place]] 1 spray EA NOSTRIL BID 11/12/19 oxyCODONE HCL/ACETAMINOPHEN [Percocet 5-325 mg] 1 tab PO Q6HR PRN 30 Days #120 tab 12/03/19 oxyCODONE HCL/ACETAMINOPHEN [Percocet 5-325 mg] 1 tab PO QID PRN 30 Days #120 tab 12/03/19 Controlled Substance Measures - Controlled Substance Measures Is patient prescribed a controlled substance at discharge?: Yes When asked, does pt state using other controlled substances?: No If prescribed controlled substance>3 days was MAPS reviewed?: Yes If Rx opioid, was Start Talking consent form obtained?: Yes If opioid is for acute pain is fill amount 7 days or less?: No Was information provided regarding opioid addiction?: Yes
== END | disposition home or self-care (01) ==
LOC: PNWHC3 12:35
PROVIDERS: ATTEND Hospitalist
DX: M47.26 Other spondylosis with radiculopathy, lumbar region (principal); E66.9 Obesity, unspecified; M46.1 Sacroiliitis, not elsewhere classified; F19.20 Other psychoactive substance dependence, uncomplicated; Z79.899 Other long term (current) drug therapy; Z79.52 Long term (current) use of systemic steroids; Z87.891 Personal history of nicotine dependence
CPT/HCPCS: 99211

== ENCOUNTER → 2020-01-28 | Outpatient (CLI) | payer MEDICARE ==
[2020-01-28 13:15] VITALS: BP 124/64; PULSE 63; RESP 18; TEMP 98.2
--- NOTE | 2020-01-28 14:04 | P.PN ---
Subjective Progress Note Date: 01/28/20 This is a follow-up visit for this 78 years old female with a chronic history of severe chronic low back pain, she is Diagnosed with lumbar spondylosis with lumbar facet arthropathy ,and lumbar degenerative disc disease , and bilateral sacroiliitis , currently she is on Percocet 5/325 every 6 hours, and she stopped using Neurontin because she had side effects, she is currently on Percocet 5/325 only, denies any side effect of the medication she denies any excessive drowsiness or sleepiness she denies any suicidal ideation, she denies any new onset of weakness, she is able to ambulate using a walker, but she reported that any activity of daily livings increased her pain interfere with her quality of life and most of her pain now is in the buttock area bilaterally Review of the system is negative for any chest pain negative for shortness of breath, negative for any new onset of weakness or numbness or abdominal pain, negative for night sweats negative for chills Objective - Vital Signs Vital signs: Vital Signs Temp 98.2 F 01/28/20 13:11 Pulse 63 01/28/20 13:11 Resp 18 01/28/20 13:11 BP 124/64 01/28/20 13:11 Pulse Ox 97 01/28/20 13:11 Intake & Output 01/27/20 01/28/20 01/28/20 18:59 06:59 18:59 Weight 72.121 kg - Exam -Constitutiona : Cooperative , not in acute distress . -HEENT : nech : supple , no Lymphadenopathy , normal thyroid size . : eyes : no ptosis , no icterus, no photophobia - neurologic : Cranial nerve II to XII intact , no focal neurological deffecit . -psychatric : alert , oriented X 3 , appropriate affect , intact judgment and insight . -Lymphatic : no Lymphadenopathy . - musculoskeltal : Lumber spine moter stegnth lower extremities ,thigh and legs 4/5 Right side , 4/5 Left side deep tendon reflexes : normal Knee Jerk , normal ankle Jerk lumber facet Loading Test =positive Right , positive Left Range of motion of the lumbar spine Flexion 30 degrees, extension 10 degrees strait leg raising test = positive at 30degree Fabere test= positive Right , and positive LT . tenderness over the Sacroiliac joint on the Right , and Left sides Assessment and Plan Plan: chronic low back pain secondary to lumbar degenerative disc disease , lumbar spondylosis with lumbar facet arthropathy . chronic and current use of high-risk medication (opioids) Patient denies any side effects of the current pain medication and the current treatment/medication helping the patient to do activity of daily living , Diagnoses, prognosis, treatment options, including but not limited to physical therapy, medication management, interventional therapies, and surgery, were discussed with the patient All the questions answered The narcotic consent was signed and patient agreed and understood the side effects and complications of opioid treatment. Patient signed the narcotic agreement, and was orally counseled, not to overuse, not to abuse, not to Divert , not tp sell pain medication, and to take it as prescribed only, Patient was counseled not to drive or operate heavy equipment while using narcotic medication, and advised not to use alcohol or any Illicit drugs while using the narcotis. understanding that lack of compliance with any of the above instructions, will likely to cause discharge from, the pain service, not to renew his narcotic prescriptions MAPS Reviwed and it was apropriate . Medication managements= patient will be given prescription refills for Percocet 5/325 every 6 hours dispensed 120 with 1 refills . Narcotic agreement signed today Time with Patient: Less than 30 PQRS Measure Charge Sheet Measure #130: Documentation of Current Meds in Medical Chart: Patient's medications documented in chart Measure #226: Tobacco Use: Screen & Cessation Intervention: Pt not a tobacco user Measure #111: Pneumonia Vaccination: Pneumococcal vaccine administered or previously received Measure #47: Advance Care Plan: Advance care planning discussed & documented, pt chose/unable to give Measure #412: Opioid Treatment Agreement: Documented signed opioid trtmnt agreemnt min once during opioid trtmnt Measure #408: Opioid Therapy Follow-up Evaluation: Patient had f/u eval minimum every 3 months during opioid therapy Measure #317: Preventitive Care & Scrn High Bld Press & F/U: Normal blood pressure, f/u not required Measure #128: Body Mass Index (BMI) Screening & Follow-up: BMI documented ABOVE normal parameters - f/u documented Measure #131: Pain Assessment & Follow-up: Pain positive & plan documented, Follow-up scheduled Measure #431: Unhealthy Alcohol Use Preventative Care & Scrn: Patient not identified as an unhealthy alcohol user PQRS Narrative: Time with Patient: Less than 30
== END | disposition home or self-care (01) ==
LOC: PNWHC3 13:01
PROVIDERS: ATTEND Specialist
DX: M51.36 Other intervertebral disc degeneration, lumbar region (principal); M47.816 Spondylosis without myelopathy or radiculopathy, lumbar region
CPT/HCPCS: 99211

== ENCOUNTER → 2020-03-24 | Outpatient (CLI) | payer MEDICARE ==
[2020-03-24 12:39] VITALS: BP 136/74; PULSE 71; RESP 18; TEMP 97.8
--- NOTE | 2020-03-24 14:34 | P.PN ---
Subjective Progress Note Date: 03/24/20 This is a follow-up visit for this 79 years old female with a chronic history of severe chronic low back pain, she is Diagnosed with lumbar spondylosis with lumbar facet arthropathy ,and lumbar degenerative disc disease , and bilateral sacroiliitis , currently she is on Percocet 5/325 every 6 hours, and she stopped using Neurontin because she had side effects, she is currently on Percocet 5/325 every 6 hours for pain , denies any side effect of the medication she denies any excessive drowsiness or sleepiness she denies any suicidal ideation, she denies any new onset of weakness, she is able to ambulate using a walker, but she reported that any activity of daily livings increased her pain interfere with her quality of life and most of her pain now is in the buttock area bilaterally Review of the system is negative for any chest pain negative for shortness of breath, negative for any new onset of weakness or numbness or abdominal pain, negative for night sweats negative for chills - Exam= -Constitutiona : Cooperative , not in acute distress . -HEENT : nech : supple , no Lymphadenopathy , normal thyroid size . : eyes : no ptosis , no icterus, no photophobia - neurologic : Cranial nerve II to XII intact , no focal neurological deffecit . -psychatric : alert , oriented X 3 , appropriate affect , intact judgment and insight . -Lymphatic : no Lymphadenopathy . - musculoskeltal : Lumber spine moter stegnth lower extremities ,thigh and legs 4/5 Right side , 4/5 Left side deep tendon reflexes : normal Knee Jerk , normal ankle Jerk lumber facet Loading Test =positive Right , positive Left Range of motion of the lumbar spine Flexion 30 degrees, extension 10 degrees strait leg raising test = positive at 30degree Fabere test= positive Right , and positive LT . tenderness over the Sacroiliac joint on the Right , and Left sides Assessment and Plan: chronic low back pain secondary to lumbar degenerative disc disease , lumbar spondylosis with lumbar facet arthropathy . chronic and current use of high-risk medication (opioids) Patient denies any side effects of the current pain medication and the current treatment/medication helping the patient to do activity of daily living , Diagnoses, prognosis, treatment options, including but not limited to physical therapy, medication management, interventional therapies, and surgery, were discussed with the patient All the questions answered The narcotic consent was signed and patient agreed and understood the side effects and complications of opioid treatment. Patient signed the narcotic agreement, and was orally counseled, not to overuse, not to abuse, not to Divert , not tp sell pain medication, and to take it as prescribed only, Patient was counseled not to drive or operate heavy equipment while using narcotic medication, and advised not to use alcohol or any Illicit drugs while using the narcotis. understanding that lack of compliance with any of the above instructions, will likely to cause discharge from, the pain service, not to renew his narcotic prescriptions MAPS Reviwed and it was apropriate . Medication managements= patient will be given prescription refills for Percocet 5/325 every 6 hours dispensed 120 with 1 refills . Narcotic agreement signed previously Urine drug screen ordered today Time with Patient: Less than 30 PQRS Measure Charge Sheet Measure #130: Documentation of Current Meds in Medical Chart: Patient's medications documented in chart Measure #226: Tobacco Use: Screen & Cessation Intervention: Pt not a tobacco user Measure #111: Pneumonia Vaccination: Pneumococcal vaccine administered or previously received Measure #47: Advance Care Plan: Advance care planning discussed & documented, pt chose/unable to give Measure #412: Opioid Treatment Agreement: Documented signed opioid trtmnt agreemnt min once during opioid trtmnt Measure #408: Opioid Therapy Follow-up Evaluation: Patient had f/u eval minimum every 3 months during opioid therapy Measure #317: Preventitive Care & Scrn High Bld Press & F/U: Normal blood pressure, f/u not required Measure #128: Body Mass Index (BMI) Screening & Follow-up: BMI documented ABOVE normal parameters - f/u documented Measure #131: Pain Assessment & Follow-up: Pain positive & plan documented, Follow-up scheduled Measure #431: Unhealthy Alcohol Use Preventative Care & Scrn: Patient not identified as an unhealthy alcohol user PQRS Narrative: Time with Patient: Less than 30 Objective - Vital Signs Vital signs: Vital Signs Temp 97.8 F 03/24/20 12:38 Pulse 71 03/24/20 12:38 Resp 18 03/24/20 12:38 BP 136/74 03/24/20 12:38 Pulse Ox 98 03/24/20 12:38
== END | disposition home or self-care (01) ==
LOC: PNWHC3 12:27
PROVIDERS: ATTEND Specialist
DX: M51.36 Other intervertebral disc degeneration, lumbar region (principal); M47.816 Spondylosis without myelopathy or radiculopathy, lumbar region
CPT/HCPCS: 80307; G0482; G0463; 99211; 99212

== ENCOUNTER → 2020-05-24 | Outpatient (CLI) | payer MEDICARE ==
[2020-05-24 14:47] VITALS: BP 131/80; PULSE 67; RESP 16; TEMP 97.8
--- NOTE | 2020-05-24 15:00 | P.PN ---
Subjective Progress Note Date: 05/24/20 This is a follow-up visit for this 79 years old female with a chronic history of severe chronic low back pain, she is Diagnosed with lumbar spondylosis with lumbar facet arthropathy ,and lumbar degenerative disc disease , and bilateral sacroiliitis , currently she is on Percocet 5/325 every 6 hours, and she stopped using Neurontin because she had side effects, she is currently on Percocet 5/325 every 6 hours for pain , denies any side effect of the medication she denies any excessive drowsiness or sleepiness she denies any suicidal ideation, she denies any new onset of weakness, she is able to ambulate using a walker, but she reported that any activity of daily livings increased her pain interfere with her quality of life and most of her pain now is in the buttock area bilaterally Review of the system is negative for any chest pain negative for shortness of breath, negative for any new onset of weakness or numbness or abdominal pain, negative for night sweats negative for chills - Exam= -Constitutiona : Cooperative , not in acute distress . -HEENT : nech : supple , no Lymphadenopathy , normal thyroid size . : eyes : no ptosis , no icterus, no photophobia - neurologic : Cranial nerve II to XII intact , no focal neurological deffecit . -psychatric : alert , oriented X 3 , appropriate affect , intact judgment and insight . -Lymphatic : no Lymphadenopathy . - musculoskeltal : Lumber spine moter stegnth lower extremities ,thigh and legs 4/5 Right side , 4/5 Left side deep tendon reflexes : normal Knee Jerk , normal ankle Jerk lumber facet Loading Test =positive Right , positive Left Range of motion of the lumbar spine Flexion 30 degrees, extension 10 degrees strait leg raising test = positive at 30degree Fabere test= positive Right , and positive LT . tenderness over the Sacroiliac joint on the Right , and Left sides Assessment and Plan: chronic low back pain secondary to lumbar degenerative disc disease , lumbar spondylosis with lumbar facet arthropathy . chronic and current use of high-risk medication (opioids) Patient denies any side effects of the current pain medication and the current treatment/medication helping the patient to do activity of daily living , Diagnoses, prognosis, treatment options, including but not limited to physical therapy, medication management, interventional therapies, and surgery, were discussed with the patient All the questions answered The narcotic consent was signed and patient agreed and understood the side effects and complications of opioid treatment. Patient signed the narcotic agreement, and was orally counseled, not to overuse, not to abuse, not to Divert , not tp sell pain medication, and to take it as prescribed only, Patient was counseled not to drive or operate heavy equipment while using narcotic medication, and advised not to use alcohol or any Illicit drugs while using the narcotis. understanding that lack of compliance with any of the above instructions, will likely to cause discharge from, the pain service, not to renew his narcotic prescriptions MAPS Reviwed and it was apropriate . Medication managements= patient will be given prescription refills for Percocet 5/325 every 6 hours dispensed 120 with 1 refills . Narcotic agreement signed previously Urine drug screen reviewed IT was appropriate Time with Patient: Less than 30 PQRS Measure Charge Sheet Measure #130: Documentation of Current Meds in Medical Chart: Patient's medications documented in chart Measure #226: Tobacco Use: Screen & Cessation Intervention: Pt not a tobacco user Measure #111: Pneumonia Vaccination: Pneumococcal vaccine administered or previously received Measure #47: Advance Care Plan: Advance care planning discussed & documented, pt chose/unable to give Measure #412: Opioid Treatment Agreement: Documented signed opioid trtmnt agreemnt min once during opioid trtmnt Measure #408: Opioid Therapy Follow-up Evaluation: Patient had f/u eval minimum every 3 months during opioid therapy Measure #317: Preventitive Care & Scrn High Bld Press & F/U: Normal blood pressure, f/u not required Measure #128: Body Mass Index (BMI) Screening & Follow-up: BMI documented ABOVE normal parameters - f/u documented Measure #131: Pain Assessment & Follow-up: Pain positive & plan documented, Follow-up scheduled Measure #431: Unhealthy Alcohol Use Preventative Care & Scrn: Patient not identified as an unhealthy alcohol user PQRS Narrative: Objective - Vital Signs Vital signs: Vital Signs Temp 97.8 F 05/24/20 14:46 Pulse 67 05/24/20 14:46 Resp 16 05/24/20 14:46 BP 131/80 05/24/20 14:46 Pulse Ox 96 05/24/20 14:46
== END ==
LOC: PNWHC3 14:32
PROVIDERS: ATTEND Specialist
DX: M47.816 Spondylosis without myelopathy or radiculopathy, lumbar region (principal); M51.36 Other intervertebral disc degeneration, lumbar region; G89.29 Other chronic pain; Z79.891 Long term (current) use of opiate analgesic; Z87.891 Personal history of nicotine dependence
CPT/HCPCS: 99211

== ENCOUNTER → 2020-07-19 | Outpatient (CLI) | payer MEDICARE ==
[2020-07-19 13:45] VITALS: BP 129/74; PULSE 63; RESP 16; TEMP 97.7
--- NOTE | 2020-07-19 14:24 | P.PN ---
Subjective Progress Note Date: 07/19/20 This is a follow-up visit for this 79 years old female with a chronic history of severe chronic low back pain, she is Diagnosed with lumbar spondylosis with lumbar facet arthropathy ,and lumbar degenerative disc disease , and bilateral sacroiliitis , currently she is on Percocet 5/325 every 6 hours, and she stopped using Neurontin because she had side effects, she is currently on Percocet 5/325 every 6 hours for pain , denies any side effect of the medication, she denies any excessive drowsiness or sleepiness she denies any suicidal ideation, she denies any new onset of weakness, she is able to ambulate using a walker, but she reported that any activity of daily livings increase her pain,and interfere with her quality of life ,and most of her pain now is in the buttock area bilaterally Review of the system is negative for any chest pain negative for shortness of breath, negative for any new onset of weakness or numbness or abdominal pain, negative for night sweats negative for chills - Exam= -Constitutiona : Cooperative , not in acute distress . -HEENT : nech : supple , no Lymphadenopathy , normal thyroid size . : eyes : no ptosis , no icterus, no photophobia - neurologic : Cranial nerve II to XII intact , no focal neurological deffecit . -psychatric : alert , oriented X 3 , appropriate affect , intact judgment and insight . -Lymphatic : no Lymphadenopathy . - musculoskeltal : Lumber spine moter stegnth lower extremities ,thigh and legs 4/5 Right side , 4/5 Left side deep tendon reflexes : normal Knee Jerk , normal ankle Jerk lumber facet Loading Test =positive Right , positive Left Range of motion of the lumbar spine Flexion 30 degrees, extension 10 degrees strait leg raising test = positive at 30degree Fabere test= positive Right , and positive LT . tenderness over the Sacroiliac joint on the Right , and Left sides Assessment and Plan: chronic low back pain secondary to lumbar degenerative disc disease , lumbar spondylosis with lumbar facet arthropathy . chronic and current use of high-risk medication (opioids) Patient denies any side effects of the current pain medication and the current treatment/medication helping the patient to do activity of daily living , Diagnoses, prognosis, treatment options, including but not limited to physical therapy, medication management, interventional therapies, and surgery, were discussed with the patient All the questions answered The narcotic consent was signed and patient agreed and understood the side effects and complications of opioid treatment. Patient signed the narcotic agreement, and was orally counseled, not to overuse, not to abuse, not to Divert , not tp sell pain medication, and to take it as prescribed only, Patient was counseled not to drive or operate heavy equipment while using narcotic medication, and advised not to use alcohol or any Illicit drugs while using the narcotis. understanding that lack of compliance with any of the above instructions, will likely to cause discharge from, the pain service, not to renew his narcotic prescriptions MAPS Reviwed and it was apropriate . Medication managements= patient will be given prescription refills for Percocet 5/325 every 6 hours dispensed 120 with 1 refills . Narcotic agreement signed previously PQRS Measure Charge Sheet Measure #130: Documentation of Current Meds in Medical Chart: Patient's medications documented in chart Measure #226: Tobacco Use: Screen & Cessation Intervention: Pt not a tobacco user Measure #111: Pneumonia Vaccination: Pneumococcal vaccine administered or previously received Measure #47: Advance Care Plan: Advance care planning discussed & documented, pt chose/unable to give Measure #412: Opioid Treatment Agreement: Documented signed opioid trtmnt agreemnt min once during opioid trtmnt Measure #408: Opioid Therapy Follow-up Evaluation: Patient had f/u eval minimum every 3 months during opioid therapy Measure #317: Preventitive Care & Scrn High Bld Press & F/U: Normal blood pressure, f/u not required Measure #128: Body Mass Index (BMI) Screening & Follow-up: BMI documented ABOVE normal parameters - f/u documented Measure #131: Pain Assessment & Follow-up: Pain positive & plan documented, Follow-up scheduled Measure #431: Unhealthy Alcohol Use Preventative Care & Scrn: Patient not identified as an unhealthy alcohol user PQRS Narrative: Objective - Vital Signs Vital signs: Vital Signs Temp 97.7 F 07/19/20 13:36 Pulse 63 07/19/20 13:36 Resp 16 07/19/20 13:36 BP 129/74 07/19/20 13:36 Pulse Ox 96 07/19/20 13:36
== END ==
LOC: PNWHC3 13:25
PROVIDERS: ATTEND Specialist
DX: M51.36 Other intervertebral disc degeneration, lumbar region (principal); M47.816 Spondylosis without myelopathy or radiculopathy, lumbar region; G89.29 Other chronic pain; Z79.891 Long term (current) use of opiate analgesic; Z88.6 Allergy status to analgesic agent; Z88.5 Allergy status to narcotic agent; Z88.8 Allergy status to other drugs, medicaments and biological substances; Z91.048 Other nonmedicinal substance allergy status; Z87.891 Personal history of nicotine dependence
CPT/HCPCS: 99211

== ENCOUNTER → 2020-09-13 | Outpatient (CLI) | payer MEDICARE ==
[2020-09-13 13:00] VITALS: BP 124/55; PULSE 61; RESP 18; TEMP 98.2
--- NOTE | 2020-09-13 13:06 | P.PAINPG ---
Subjective Progress Note Date: 09/13/20 his is a follow-up visit for this 79 years old female with a chronic history of severe chronic low back pain, she is Diagnosed with lumbar spondylosis with lumbar facet arthropathy ,and lumbar degenerative disc disease , and bilateral sacroiliitis , currently she is on Percocet 5/325 every 6 hours, and she stopped using Neurontin because she had side effects, denies any side effect of the medication, she denies any excessive drowsiness or sleepiness she denies any suicidal ideation, she denies any new onset of weakness, she is able to ambulate using a walker, but she reported that any activity of daily livings increase her pain,and interfere with her quality of life ,and most of her pain now is in the buttock area bilaterally. Otherwise no major changes in her health or pain. Review of the system is negative for any chest pain negative for shortness of breath, negative for any new onset of weakness or numbness or abdominal pain, negative for night sweats negative for chills - Exam= -Constitutiona : Cooperative , not in acute distress . -HEENT : nech : supple , no Lymphadenopathy , normal thyroid size . : eyes : no ptosis , no icterus, no photophobia - neurologic : Cranial nerve II to XII intact , no focal neurological deffecit . -psychatric : alert , oriented X 3 , appropriate affect , intact judgment and insight . -Lymphatic : no Lymphadenopathy . - musculoskeltal : Lumber spine moter stegnth lower extremities ,thigh and legs 4/5 Right side , 4/5 Left side deep tendon reflexes : normal Knee Jerk , normal ankle Jerk lumber facet Loading Test =positive Right , positive Left Range of motion of the lumbar spine Flexion 30 degrees, extension 10 degrees strait leg raising test = positive at 30degree Fabere test= positive Right , and positive LT . tenderness over the Sacroiliac joint on the Right , and Left sides Assessment and Plan: chronic low back pain secondary to lumbar degenerative disc disease , lumbar spondylosis with lumbar facet arthropathy . chronic and current use of high-risk medication (opioids) Patient denies any side effects of the current pain medication and the current treatment/medication helping the patient to do activity of daily living , Diagnoses, prognosis, treatment options, including but not limited to physical therapy, medication management, interventional therapies, and surgery, were discussed with the patient All the questions answered The narcotic consent was signed and patient agreed and understood the side effects and complications of opioid treatment. Patient signed the narcotic agreement, and was orally counseled, not to overuse, not to abuse, not to Divert , not tp sell pain medication, and to take it as prescribed only, Patient was counseled not to drive or operate heavy equipment while using narcotic medication, and advised not to use alcohol or any Illicit drugs while using the narcotis. understanding that lack of compliance with any of the above instructions, will likely to cause discharge from, the pain service, not to renew his narcotic prescriptions MAPS Reviwed and it was apropriate . Medication managements= patient will be given prescription refills for Percocet 5/325 every 6 hours dispensed 120 with 1 refills . Narcotic agreement signed previously I have spent 22 minutes on patient care today. The time was used to review the medical records including relevant urine studies and Prescription history (MAPs), review of the available imaging, evaluation and examination of the patient, coordination of care with the medical staff and if applicable referring physicians, as well as creation of the medical record PQRS Measure Charge Sheet Measure #130: Documentation of Current Meds in Medical Chart: Patient's medications documented in chart Measure #226: Tobacco Use: Screen & Cessation Intervention: Pt not a tobacco user Measure #111: Pneumonia Vaccination: Pneumococcal vaccine administered or previously received Measure #47: Advance Care Plan: Advance care planning discussed & documented, pt chose/unable to give Measure #412: Opioid Treatment Agreement: Documented signed opioid trtmnt agreemnt min once during opioid trtmnt Measure #408: Opioid Therapy Follow-up Evaluation: Patient had f/u eval minimum every 3 months during opioid therapy Measure #317: Preventitive Care & Scrn High Bld Press & F/U: Normal blood pressure, f/u not required Measure #128: Body Mass Index (BMI) Screening & Follow-up: BMI documented ABOVE normal parameters - f/u documented Measure #131: Pain Assessment & Follow-up: Pain positive & plan documented, Follow-up scheduled Measure #431: Unhealthy Alcohol Use Preventative Care & Scrn: Patient not identified as an unhealthy alcohol userI PQRS Measure Charge Sheet PQRS Narrative: Smoking Status Former smoker Narcotic Agreement Date Signed 02/13/19 Pain Intensity [Lower Back] 7 Scale Used Numeric (1 - 10) Hx Alcohol Use (MH) Yes Home Medications: Ambulatory Orders Atorvastatin [Lipitor] 20 mg PO HS 07/28/13 Lansoprazole [Prevacid] 15 mg PO PC-LUNCH 07/28/13 atenoloL [Tenormin] 50 mg PO HS 07/28/13 Sertraline HCl 100 mg PO HS 12/31/13 amLODIPine [Norvasc] 5 mg PO BID 04/26/15 Olmesartan Medoxomil [Benicar] 40 mg PO DAILY 10/15/17 Biotin 5,000 mcg PO DAILY 07/04/18 Cholecalciferol [Vitamin D3 (25 Mcg = 1000 Iu)] 5,000 unit PO MOWEFR 07/04/18 Docusate [Colace] 200 mg PO HS 07/04/18 Loratadine [Claritin] 10 mg PO DAILY 07/04/18 Memantine [Namenda] 5 mg PO TID 07/04/18 Multivitamins, Thera [Multivitamin (formulary)] 1 tab PO DAILY 07/04/18 L.acidoph,Paracasei, B.lactis [Probiotic] 1 each PO DAILY 11/20/18 Calcium Carbonate [Calcium] 600 mg PO BID 04/03/19 Fluticasone Nasal Spencer [Flonase Nasal Spencer] 1 spray EA NOSTRIL BID 11/12/19 oxyCODONE HCL/ACETAMINOPHEN [Percocet 5-325 mg] 1 tab PO Q6HR PRN 30 Days #120 tab 09/13/20 oxyCODONE HCL/ACETAMINOPHEN [Percocet 5-325 mg] 1 tab PO Q6HR PRN 30 Days #120 tab 09/13/20 Controlled Substance Measures - Controlled Substance Measures Is patient prescribed a controlled substance at discharge?: Yes When asked, does pt state using other controlled substances?: No If prescribed controlled substance>3 days was MAPS reviewed?: Yes If Rx opioid, was Start Talking consent form obtained?: Yes If opioid is for acute pain is fill amount 7 days or less?: No Was information provided regarding opioid addiction?: No
== END ==
LOC: PNWHC3 12:48
PROVIDERS: ATTEND Anesthesiology
DX: M51.36 Other intervertebral disc degeneration, lumbar region (principal); M47.816 Spondylosis without myelopathy or radiculopathy, lumbar region; G89.29 Other chronic pain; Z79.891 Long term (current) use of opiate analgesic; Z87.891 Personal history of nicotine dependence
CPT/HCPCS: 99211

== ENCOUNTER → 2020-11-08 | Outpatient (CLI) | payer MEDICARE ==
[2020-11-08 13:04] VITALS: BP 141/66; PULSE 67; RESP 18; TEMP 98.5
--- NOTE | 2020-11-08 13:44 | P.PAINPG ---
Subjective Progress Note Date: 11/08/20 Principal diagnosis: Lumbar back pain Mrs. Barlow is a 79-year-old pleasant female came to the [facility] pain clinic for follow-up visit. Patient has ongoing pain for many years. Patient describes pain is aching, throbbing, constant type of pain. Pain is radiating to bilateral mid thigh area. Patient rated pain levels are 8 out of 10 in severity. With the help of medications pain levels are 6 out of 10 in severity. Activities making pain worse. Medications, resting, intervention procedures helping in relieving patient's pain. Previously she had bilateral SI joint injection which helped good pain relief for 2 weeks duration. Patient is looking for some pain relief along with an medications so that she can able to perform her activities better. With the help of pain medications she can able to perform her activities to some extent. Patient pain some days better than others. Overall activities decreased secondary to pain. Because of the pain sometimes patient is feeling lack of sleep, interest, and energy. Denied any s eugene effects with the medications. Denied any bowel or bladder problems at this time. Patient is using walker for walking support. Patient denies any suicidal or homicidal ideations intent or plan. Patient denies any auditory or visual hallucinations. Patient denied any red flag symptoms related to pain. 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 Sensation grossly intact Lower extremity: Normal strength, and decreased range of motion secondary to pain Lumbar spine: Paravertebral tenderness: positive Lumbar facet load test : positive Strait leg raising test: Not done Sacroiliac joint tenderness: Positive Thigh thrust test: Positive SI joint compression test: Positive Fabere test: Positive - Constitutional Constitutional Comment(s): 12 point systems negative except as mentioned in the history of present illness Assessment and Plan Assessment: Lumbar spondylosis without myelopathy Lumbar spine stenosis Myofascial pain syndrome, and chronic pain syndrome Sacroiliac joint dysfunction Plan: 1 Opioid, and psychological risk tools, and scores were reviewed. Diagnoses, prognosis, and multiple treatment options including but not limited to physical therapy, interventional therapy, adjunct medication therapy, narcotic medication, and surgical options were discussed with the patient. And all questions were answered to the patient's satisfaction. #2 Opioid agreement: Patient was discussed regarding the medication side effects, and complications associated with narcotic use. Also counsels against driving while using narcotic medications, and also against using any alcohol or illicit or recreational drugs in conjunction with opioids. Patient understood the consequences. Patient has signed narcotic agreement and was again asked to re-read this do cument and will be given a copy to take home if requested. This document outlines the policies of the [facility]. It specifically counsels the patient to not misuse, overuse, abuse, divert, or sell medications, and to take them as prescribed by only one healthcare provider and store the medications in a safe and preferably locked location. This document also counsels against driving while using narcotic medications and also against using any alcohol or illicit or recreational drugs in conjunction with opioids. The patient verbalized understanding to staff that lack of compliance with any of the above will likely result in failure to renew narcotic prescriptions, possible discharge from the clinic, and possible legal ramifications thereafter. #3 Patient was counseled on importance of regular exercise. Including bernarda chi, aerobic exercises as tolerated. Which helps for chronic pain, and overall well- being. Patient also counseled regarding importance of weight control rolling chronic pain, and overall other health issues. By altering diet habits, minimizing sugar intake, and processed foods helps in minimizing Inflammation. Also discussed with the patient regarding intermittent fasting. #4 consultation: None #5 investigations: MAPS , urine drug test- reviewed #6 interventional procedures: Bilateral sacroiliac joint injection. Procedure, complications, and alternatives discussed with the patient. And answered all the questions. #7 medications #1 Percocet 5/325 by mouth every 6 to every 8 hours as needed for chronic pain dispense 120 with no refill #2 naloxone 4 mg international for respiratory depression dispense #2, discussed with the patient how to use it by family members if needed Medication side effects, complications, long-term consequences discussed with the patient. Patient recommended to contact the pain clinic if noticed any issues with given medications. #8 morphine milligrams equivalents dose ( MME) per day: 30. #9 TENS unit's, and percussion massage device #10 disposition scheduled to follow up with pain clinic in 4 weeks duration . I have spent 20 minutes with this patient. Including but not limited to: salc-oo-oakf time, on physical examination, electronic medical record review, counseling, and documentation. Time with Patient: Less than 30 PQRS Measure Charge Sheet Measure #130: Documentation of Current Meds in Medical Chart: Patient's medications documented in chart (as) Measure #226: Tobacco Use: Screen & Cessation Intervention: Pt not a tobacco user Measure #111: Pneumonia Vaccination: Pneumococcal vaccine administered or previously received Measure #47: Advance Care Plan: Advance care planning discussed & documented, plan or surrogate given Measure #412: Opioid Treatment Agreement: Documented signed opioid trtmnt agreemnt min once during opioid trtmnt Measure #408: Opioid Therapy Follow-up Evaluation: Patient had f/u eval minimum every 3 months during opioid therapy Measure #317: Preventitive Care & Scrn High Bld Press & F/U: Pre-hypertensive or hypertensive BP documented, pt will f/u with PCP Measure #128: Body Mass Index (BMI) Screening & Follow-up: BMI documented ABOVE normal parameters - f/u documented Measure #131: Pain Assessment & Follow-up: Pain positive & plan documented Measure #431: Unhealthy Alcohol Use Preventative Care & Scrn: Patient identified as unhealthy alcohol user; counseling given Mode of Arrival: Walker - Pain Location Lower Back Non-Pharmacological Interventions: Inactivity Pharmacological Interventions: Medication, PRN Medication PQRS Narrative: Smoking Status Former smoker Narcotic Agreement Date Signed 09/13/20 Blood Pressure 141/66 Pain Intensity [Lower Back] 6 Scale Used Numeric (1 - 10) Hx Alcohol Use (MH) Yes Home Medications: Ambulatory Orders Atorvastatin [Lipitor] 40 mg PO HS 07/28/13 Lansoprazole [Prevacid] 15 mg PO PC-LUNCH 07/28/13 atenoloL [Tenormin] 50 mg PO HS 07/28/13 Sertraline HCl 100 mg PO HS 12/31/13 amLODIPine [Norvasc] 5 mg PO BID 04/26/15 Olmesartan Medoxomil [Benicar] 40 mg PO DAILY 10/15/17 Biotin [Biotin Disolve] 5,000 mcg PO DAILY 07/04/18 Cholecalciferol [Vitamin D3 (25 Mcg = 1000 Iu)] 5,000 unit PO MOWEFR 07/04/18 Docusate [Colace] 200 mg PO HS 07/04/18 Loratadine [Claritin] 10 mg PO DAILY 07/04/18 Memantine [Namenda] 5 mg PO TID 07/04/18 Multivitamins, Thera [Multivitamin (formulary)] 1 tab PO DAILY 07/04/18 L.acidoph,Paracasei, B.lactis [Probiotic] 1 each PO DAILY 11/20/18 Calcium Carbonate [Calcium] 600 mg PO BID 04/03/19 Fluticasone Nasal [place] [Flonase Nasal [place]] 1 spray EA NOSTRIL BID 11/12/19 oxyCODONE HCL/ACETAMINOPHEN [Percocet 5-325 mg] 1 tab PO Q6HR PRN 30 Days #120 tab 09/13/20 Controlled Substance Measures - Controlled Substance Measures Is patient prescribed a controlled substance at discharge?: Yes When asked, does pt state using other controlled substances?: Yes If prescribed controlled substance>3 days was MAPS reviewed?: Yes (this is a decrease in his neck also) If Rx opioid, was Start Talking consent form obtained?: Yes If opioid is for acute pain is fill amount 7 days or less?: No Was information provided regarding opioid addiction?: Yes
== END ==
LOC: PNWHC3 12:51
DX: M47.816 Spondylosis without myelopathy or radiculopathy, lumbar region (principal); M48.061 Spinal stenosis, lumbar region without neurogenic claudication; M79.18 Myalgia, other site; G89.4 Chronic pain syndrome; M53.3 Sacrococcygeal disorders, not elsewhere classified; Z87.891 Personal history of nicotine dependence; Z88.5 Allergy status to narcotic agent; Z88.6 Allergy status to analgesic agent; Z88.8 Allergy status to other drugs, medicaments and biological substances
CPT/HCPCS: 80307; G0482; G0463; 99212

== ENCOUNTER → 2020-12-06 | Outpatient (CLI) | payer MEDICARE ==
[2020-12-06 13:57] VITALS: BP 105/67; PULSE 67; RESP 18
--- NOTE | 2020-12-06 14:10 | P.PN ---
Subjective Progress Note Date: 12/06/20 Janet is a 80-year-old female presenting to clinic today for medication follow- up. She has a history of lumbar disc degenerative disease, lumbar spondylosis and facet arthropathy without myelopathy. She reports that she is still having lower back pain right side greater than left. Today she rates it at 5 out of 10 on a 0-to-10 scale. On average it's been a 2 out of 10 at a 0-to-10 scale. She reports her pain is worse with excessive standing, excessive walking, and lifting. She reports her pain is better with certain positions laying, sitting and doing her home stretching exercises. She tried home care consultant in the past that did not help. She has done physical therapy in the past but is unable to afford continued care at this time. She continues to do her home exercises that she's been taught previously. She currently takes Percocet 5 mg every 6 hours as needed. She denies any adverse effects or palpitations from that medication. She denies any bowel or bladder dysfunction, saddle anesthesia, or any other red flag symptoms at this time. Objective - Exam Physical Examinations : -Constitutiona : Cooperative , not in acute distress . -HEENT : nech : supple , no Lymphadenopathy , normal thyroid size . : eyes : no ptosis , no icterus, no photophobia . - neurologic : Cranial nerve II to XII intact , no focal neurological deffecit . -psychatric : alert , oriented X 3 , appropriate affect , intact judgment and insight . -Lymphatic : no Lymphadenopathy . - musculoskeltal : Lumber spine moter stegnth lower extremities ,thigh and legs 5/5 Right side , 5/5 Left side deep tendon reflexes : normal Knee Jerk , normal ankle Jerk lumber facet Loading Test =positive Right , positive Left Range of motion of the lumbar spine Flexion 30 degrees, extension 10 degrees strait leg raising test = positive at 30 degree Fabere test= positive Right , and positive LT . Sever tenderness over the Sacroiliac joint and lateral Gaenslen test= positive right ,and positive left . Sacroiliac compression test= positive bilaterally Assessment and Plan Assessment: Assessment and plan Assessment: chronic low back pain secondary to lumbar degenerative disc disease , lumbar spondylosis with lumbar facet arthropathy . chronic and current use of high-risk medication (opioids) Patient denies any side effects of the current pain medication and the current treatment/medication helping the patient to do activity of daily living , Diagnoses, prognosis, treatment options, including but not limited to physical therapy, medication management, interventional therapies, and surgery, were discussed with the patient All the questions answered The narcotic consent was signed and patient agreed and understood the side effects and complications of opioid treatment. Patient signed the narcotic agreement, and was orally counseled, not to overuse, not to abuse, not to Divert , not tp sell pain medication, and to take it as prescribed only, Patient was counseled not to drive or operate heavy equipment while using narcotic medication, and advised not to use alcohol or any Illicit drugs while using the narcotis. understanding that lack of compliance with any of the above instructions, will likely to cause discharge from, the pain service, not to renew his narcotic prescriptions MAPS Reviwed and it was apropriate . UDS report was reviewed and appropriate Plan: Medication managements= patient will be given prescription refills for Percocet 5/325 every 6 hours dispensed 120 with 1 refills . Narcotic agreement signed previously - PQRS measures = - Patient's medications are documented in the chart. -Tobacco use is negative -Patient's has received pneumococcal vaccine. -Advanced care planning discussed, patient not eligible. -Opiate contract signed. -Pain positive and follow-up visit/procedure is scheduled. -Patient's blood pressure measured [105/67 ] , and documented in the record ,and patient will follow up with the primary care. -Patient was not identified as an unhealthy alcohol user
== END ==
LOC: PNWHC3 13:12
PROVIDERS: ATTEND Student in an Organized Health Care Education/Training Program
DX: M51.36 Other intervertebral disc degeneration, lumbar region (principal); M47.816 Spondylosis without myelopathy or radiculopathy, lumbar region; G89.29 Other chronic pain; Z79.891 Long term (current) use of opiate analgesic; Z88.5 Allergy status to narcotic agent; Z88.6 Allergy status to analgesic agent; Z88.8 Allergy status to other drugs, medicaments and biological substances; Z91.048 Other nonmedicinal substance allergy status; Z87.891 Personal history of nicotine dependence
CPT/HCPCS: 99211

== ENCOUNTER → 2021-03-09 | Outpatient (CLI) | payer MEDICARE ==
[2021-03-09 12:16] VITALS: BP 110/67; PULSE 65; RESP 18
--- NOTE | 2021-03-09 12:36 | P.PN ---
Subjective Progress Note Date: 03/09/21 Principal diagnosis: A 80 yr old female with a history of severe and chronic low back pain secondary to lumbar degenerative disc diseases and lumbar spondylosis with facet arthropathy presents today education refills. Patient states that her pain is in her lower back and radiates down the left and right extremity greater on the left. Patient states the pain is 7 out of 10 intensity dull / achy in character and constant. She admits that she fell 1 week ago due to pain and weakness in her lower extremities. She has not followed up with her primary care doctor about it yet. Pain is provoked with standing, bending & lifting. She uses a walker for ambulatory assistance. Pain is relieved with medications, topicals, heat, stretching, use of a walker and rest Procedures completed include LESI, Facet block medial branches of the lumbar spine. Patients currently on Percocet 5/325 mg 4 times a day when necessary. Patient denies any side effects of the medication, denies excessive drowsiness or sleepiness, denies suicidal ideation and reports that the current pain medication is helping to control pain and improve activity of daily living. Patient denies any motor or sensory deficits. Patient denies any fever or night sweats, denies any change in the bowel movements or urination. Pain lasted more than 3 months. Patient tried conservative treatment without success. Physical Examination : Constitutional : Cooperative , not in acute distress . HEENT : Neck supple. No lymphadenopathy. No thyromegaly with normal thyroid size. Eyes : no ptosis , no icterus, no photophobia. ENT : normal hearing. Normal oropharynx. No thrush. Respiratory : Chest clear to auscultations bilaterally. No wheezing. No rhonchi. Cardiovascular : Regular rate and rhythm. S1 / S2. No S3. No S4. Gastrointestinal : Abdomen soft. No tenderness. Bowel sounds x 4 intact. No organomegaly. Genitourinary : Deferred. Neurologic : Cranial nerve II to XII intact. No focal neurological deficits. Psychatric : Alert & oriented x 3. Matching mood & appropriate affect. Judgment & insight intact. Lymphatic : No lymphadenopathy. Musculoskeletal : Cervical spine : Motor bulk/ tone/ strength normal bilateral up per extremities Facet loading test cervical area positive. Lumbar spine : Motor bulk/ tone/ strength lower extremities/thigh and legs 5/5 Deep tendon reflexes : normal Knee Jerk. Normal Ankle Jerk Lumber facet Loading Test positive over L3-S1 bilaterally Vertebral body tenderness to palpation over the L3 L4 L5 and S1 Straight Leg Raise test positive at 30 degree at left or right Juan Carlos test positive right and positive left Range of motion: Flexion of the lumbar spine 30 degrees Range of motion: Extension of the lumbar spine <10 degrees Severe tenderness over the Sacroiliac joint on the right , left side Gaenslen's test [place] test Distraction test Provocation test Positive tenderness over the sacroiliac joint Assessment and plan : Chronic low back pain secondary to lumbar degenerative disc disease , lumbar spondylosis with facet arthropathy without myelopathy. Percocet refilled 5/325 mg 4 times a day when necessary #120 with one refill Diclofenac gel to apply an affected area as needed 4 times a day also filled Chronic and current use of high-risk medication (Opioids). UDS reviewed and consistent Opioid agreement up to date The patient was counseled about risk of opioid use, psychological risk associated with opioids and was orally counseled to not overuse , divert or sell dictations to take medications as prescribed only and to restore medication in safe location. The patient was counseled against driving while using narcotic medications and also not to use alcohol or any illicit recreational drugs. The patient's verbalized understanding that the lack of compliance will result in failure to renew narcotic prescription and possible discharge from the clinic. Diagnoses, prognosis, and treatment options including but not limited to physical therapy, surgical interventions, interventional therapies, and medication management including narcotics and adjuvant medication were discussed with the patient and all the questions answered. I have spent 31 minutes on patient care today. The time was used to review the medical records including relevant urine studies and Prescription history (MAPs), review of the available imaging, evaluation and examination of the patient, coordination of care with the medical staff and if applicable referring physicians, as well as creation of the medical record. Dr Camarillo was available by phone for the evaluation of this patient. Objective - Vital Signs Vital signs: Vital Signs Temp Pulse 65 03/09/21 12:07 Resp 18 03/09/21 12:07 BP 110/67 03/09/21 12:07 Pulse Ox 97 03/09/21 12:07 PQRS Measure Charge Sheet Mode of Arrival: Ambulatory - Pain Location Lower Back Non-Pharmacological Interventions: Heat, Ice, Inactivity, Position/Reposition, Sitting, Stretching Pharmacological Interventions: PRN Medication PQRS Narrative: Smoking Status Former smoker Narcotic Agreement Date Signed 09/13/20 Blood Pressure 110/67 Pain Intensity [Lower Back] 5 Scale Used Numeric (1 - 10) Hx Alcohol Use (MH) Yes Home Medications: Ambulatory Orders Atorvastatin [Lipitor] 40 mg PO HS 07/28/13 Lansoprazole [Prevacid] 15 mg PO PC-LUNCH 07/28/13 atenoloL [Tenormin] 50 mg PO HS 07/28/13 amLODIPine [Norvasc] 5 mg PO BID 04/26/15 Olmesartan Medoxomil [Benicar] 40 mg PO DAILY 10/15/17 Biotin [Biotin Disolve] 5,000 mcg PO DAILY 07/04/18 Cholecalciferol [Vitamin D3 (25 Mcg = 1000 Iu)] 5,000 unit PO MOWEFR 07/04/18 Docusate [Colace] 200 mg PO HS 07/04/18 Loratadine [Claritin] 10 mg PO DAILY 07/04/18 Memantine [Namenda] 5 mg PO TID 07/04/18 Multivitamins, Thera [Multivitamin (formulary)] 1 tab PO DAILY 07/04/18 L.acidoph,Paracasei, B.lactis [Probiotic] 1 each PO DAILY 11/20/18 Calcium Carbonate [Calcium] 600 mg PO BID 04/03/19 Fluticasone Nasal [place] [Flonase Nasal [place]] 1 spray EA NOSTRIL BID 11/12/19 Sertraline [Zoloft] 100 mg PO HS 03/07/21 Diclofenac Sodium Gel [Voltaren Gel] 2 gm TOPICAL QID PRN 30 Days #100 gm 03/09/21 oxyCODONE HCL/ACETAMINOPHEN [Percocet 5-325 mg] 1 tab PO Q6HR PRN 30 Days #120 tab 03/09/21 oxyCODONE HCL/ACETAMINOPHEN [Percocet 5-325 mg] 1 tab PO Q6HR PRN 30 Days #120 tab 03/09/21
== END ==
LOC: PNWHC3 11:44
PROVIDERS: ATTEND Physician Assistant Medical
DX: G89.29 Other chronic pain (principal); M51.36 Other intervertebral disc degeneration, lumbar region; M47.816 Spondylosis without myelopathy or radiculopathy, lumbar region; Z79.891 Long term (current) use of opiate analgesic; Z87.891 Personal history of nicotine dependence; Z88.5 Allergy status to narcotic agent; Z88.8 Allergy status to other drugs, medicaments and biological substances; Z88.6 Allergy status to analgesic agent
CPT/HCPCS: 99211

== ENCOUNTER → 2021-05-04 | Outpatient (CLI) | payer MEDICARE ==
--- NOTE | 2021-05-04 13:16 | P.PN ---
Subjective Progress Note Date: 05/04/21 Principal diagnosis: A 80 yr old female with a history of severe and chronic low back pain secondary to lumbar degenerative disc diseases and lumbar spondylosis with facet arthropathy presents today for medication refills. Pain level waxes and wanes throughout the day based on activity level but is currently 5 out of 10, sharp, tight, pressure sensation in the middle of the lumbar spine with radiation of pain left right of midline to the paraspinal muscles as well as the bilateral lower extremities. Pain is alleviated with medications, topicals, injections, physical therapy years ago that "didn't help", use of a walker for ambulation, use of a recliner and laying supine and rest. Patient is currently on Percocet 5/325mg #120 Patient denies any side effects of the medication(s), denies excessive drowsiness or sleepiness, denies suicidal ideation and reports that the current pain medication is helping to control the pain and improve activities of daily living. Patient denies any motor or sensory deficits. Patient denies any fever or night sweats, denies any change in the bowel movements or urination. Physical Examination: -Constitutional: Cooperative. Not in acute distress . -HEENT: Neck is supple. No lymphadenopathy. No thyromegaly. Normal thyroid size. Eyes: No ptosis , no icterus, no photophobia. ENT: No auditory deficits. Normal oropharynx. No Thrush. - Respiratory: Chest clear to auscultations bilaterally. No wheezing. No rhonchi. - Cardiovascular: Regular rate and rhythm. S1 / S2 , no S3 , no S4. - Gastrointestinal: Abdomen soft no tenderness. Bowel sounds positive in all four quadrants. No organomegaly. - Genitourinary: Deferred. - Neurologic: Cranial nerve II to XII intact. No focal neurological deficits. - Psychatric: Alert & oriented x 3. Matching mood & appropriate affect. Judg ment and insight intact. - Lymphatic: No Lymphadenopathy. - Musculoskeletal: Cervical spine: Muscle bulk/ tone/ strength in the bilateral upper extremities normal. Facet loading test cervical area positive. Lumbar spine: Motor bulk/ tone/ strength lower extremities , thigh and legs : 5/5 Deep tendon reflexes : Normal Knee Jerk. Normal Ankle Jerk . Vertebral body tenderness to palpation over L4, L5 Lumbar Facet Loading Test positive Straight Leg Raise: positive at 30 degrees right side/ left side Gaenslen's Test positive Sacral spine : Severe tenderness over the Sacroiliac joint: right side / left side Range of motion: Flexion of the lumbar spine <60 degrees Range of motion: Extension of the lumbar spine <20 degrees Gaenslen's Test positive Juan Carlos test: positive right side / left side Assessment and plan: Chronic low back pain secondary to lumbar degenerative disc disease , lumbar spondylosis with facet arthropathy without myelopathy Chronic and current use of high-risk medication (Opioids). The patient was counseled about risk of opioid use, psychological risk associated with opioids and was orally counseled to not overuse , divert or sell medications. Pt is to store medication in a safe location. The patient is counseled against driving while using narcotic medications and also not to use alcohol or any illicit recreational drugs. Patient verbalized understanding that the lack of compliance will result in failure to renew narcotic prescription(s) as well as possible discharge from the clinic Diagnoses, prognosis and treatment options including but not limited to physical therapy, surgical interventions, interventional therapies and medication management including narcotics and adjuvant medication were discussed. All patient questions answered MAPS reviewed and it was appropriate. Urine for UDS will be monitored in future visit Prescription refill for Percocet 5/325mg #120 I have spent 31 minutes on patient care today. Dr Camarillo was available by phone for the evaluation of this patient. The time was used to review the medical records including relevant urine studies and Prescription history (MAPs), review of the available imaging, evaluation and examination of the patient, coordination of care with the medical staff and if applicable referring physicians, as well as creation of the medical record PQRS Measure Charge Sheet - Pain Location Lower Back Non-Pharmacological Interventions: Stretching PQRS Narrative: Smoking Status Former smoker Narcotic Agreement Date Signed 09/13/20 Pain Intensity [Lower Back] 6 Scale Used Numeric (1 - 10) Hx Alcohol Use (MH) Yes Home Medications: Ambulatory Orders Atorvastatin [Lipitor] 40 mg PO HS 07/28/13 Lansoprazole [Prevacid] 15 mg PO PC-LUNCH 07/28/13 atenoloL [Tenormin] 50 mg PO HS 07/28/13 amLODIPine [Norvasc] 5 mg PO BID 04/26/15 Olmesartan Medoxomil [Benicar] 40 mg PO DAILY 10/15/17 Biotin [Biotin Disolve] 5,000 mcg PO DAILY 07/04/18 Cholecalciferol [Vitamin D3 (25 Mcg = 1000 Iu)] 5,000 unit PO MOWEFR 07/04/18 Docusate [Colace] 200 mg PO HS 07/04/18 Loratadine [Claritin] 10 mg PO DAILY 07/04/18 Memantine [Namenda] 5 mg PO TID 07/04/18 Multivitamins, Thera [Multivitamin (formulary)] 1 tab PO DAILY 07/04/18 L.acidoph,Paracasei, B.lactis [Probiotic] 1 each PO DAILY 11/20/18 Calcium Carbonate [Calcium] 600 mg PO BID 04/03/19 Fluticasone Nasal [place] [Flonase Nasal [place]] 1 spray EA NOSTRIL BID 11/12/19 Sertraline [Zoloft] 100 mg PO HS 03/07/21 Diclofenac Sodium Gel [Voltaren Gel] 2 gm TOPICAL QID PRN 30 Days #100 gm 03/09/21 oxyCODONE HCL/ACETAMINOPHEN [Percocet 5-325 mg] 1 tab PO Q6HR PRN 30 Days #120 tab 05/04/21 oxyCODONE HCL/ACETAMINOPHEN [Percocet 5-325 mg] 1 tab PO Q6HR PRN 30 Days #120 tab 05/04/21
[2021-05-04 13:46] VITALS: BP 141/75; PULSE 63; RESP 18; TEMP 97.8
== END ==
LOC: PNWHC3 12:33
PROVIDERS: ATTEND Specialist
DX: M51.36 Other intervertebral disc degeneration, lumbar region (principal); M47.816 Spondylosis without myelopathy or radiculopathy, lumbar region; G89.29 Other chronic pain; Z79.891 Long term (current) use of opiate analgesic; Z88.5 Allergy status to narcotic agent; Z88.6 Allergy status to analgesic agent; Z88.8 Allergy status to other drugs, medicaments and biological substances; Z87.891 Personal history of nicotine dependence
CPT/HCPCS: 99211

== ENCOUNTER → 2021-07-14 | Outpatient (CLI) | payer MEDICARE ==
[2021-07-14 10:56] VITALS: BP 147/65; PULSE 62; RESP 16; TEMP 98.2
--- NOTE | 2021-07-14 11:05 | P.PAINPG ---
PQRS Measure Charge Sheet Comment: A 80 yr old email with a history of severe and chronic low back pain secondary to lumbar degenerative disc diseases and lumbar spondylosis with facet arthropathy presents today for medication refills. Pain level is 4 out of 10 in intensity, dull, achy in the lower aspects of her lumbar spine which she has b een dealing with on and off for 20 years. Pain radiates to the bilateral lower extremities. Pain is provoked by bending, twisting and lifting. Pain is alleviated with medications, use of a walker for ambulation, topicals, injections in the past, home stretching regimen, repositioning and rest. Patient is currently on Percocet 5/325 #120 Patient denies any side effects of the medication(s), denies excessive drowsiness or sleepiness, denies suicidal ideation and reports that the current pain medication is helping to control the pain and improve activities of daily living. Patient denies any motor or sensory deficits. Patient denies any fever or night sweats, denies any change in the bowel movements or urination. Physical Examination: -Constitutional: Cooperative. Not in acute distress . -HEENT: Neck is supple. No lymphadenopathy. No thyromegaly. Normal thyroid size. Eyes: No ptosis , no icterus, no photophobia. ENT: No auditory deficits. Normal oropharynx. No Thrush. - Respiratory: Chest clear to auscultations bilaterally. No wheezing. No rhonchi. - Cardiovascular: Regular rate and rhythm. S1 / S2 , no S3 , no S4. - Gastrointestinal: Abdomen soft no tenderness. Bowel sounds positive in all four quadrants. No organomegaly. - Genitourinary: Deferred. - Neurologic: Cranial nerve II to XII intact. No focal neurological defic its. - Psychatric: Alert & oriented x 3. Matching mood & appropriate affect. Judgment and insight intact. - Lymphatic: No Lymphadenopathy. - Musculoskeletal: Cervical spine: Muscle bulk/ tone/ strength in the bilateral upper extremities normal Vertebral body tenderness to palpation over Facet loading test positive Thoracic spine Muscle bulk / tone/ strength in the bilateral paraspinal muscles normal Vertebral body tender to palpation over Facet loading test positive Lumbar spine: Motor bulk/ tone/ strength lower extremities , thigh and legs : 5/5 Deep tendon reflexes : Normal Knee Jerk. Normal Ankle Jerk . Vertebral body tenderness to palpation over L4, L5 Lumbar Facet Loading Test positive Straight Leg Raise: positive at 30 degrees right side/ left side Gaenslen's Test positive Sacral spine : Severe tenderness over the Sacroiliac joint: right side / left side Range of motion: Flexion of the lumbar spine <60 degrees Range of motion: Extension of the lumbar spine <20 degrees Gaenslen's Test positive Kenney's Test positive Juan Carlos test: positive right side / left side Thigh Thrust Test Sacral Thrust Test Assessment and plan: Chronic low back pain secondary to lumbar degenerative disc disease , lumbar spondylosis with facet arthropathy without myelopathy Chronic and current use of high-risk medication (Opioids). The patient was counseled about risk of opioid use, psychological risk associated with opioids and was orally counseled to not overuse , divert or sell medications. Pt is to store medication in a safe location. The patient is counseled against driving while using narcotic medications and also not to use alcohol or any illicit recreational drugs. Patient verbalized understanding that the lack of compliance will result in failure to renew narcotic prescription(s) as well as possible discharge from the clinic Diagnoses, prognosis and treatment options including but not limited to physical therapy, surgical interventions, interventional therapies and medication management including narcotics and adjuvant medication were discussed. All patient questions answered MAPS reviewed and it was appropriate. Urine for UDS collected today 07/14/21 Narcotic agreement signed 09/13/20 and up-to-date Prescription refill for Percocet 5/325 #120 with one refill I have spent 31 minutes on patient care today. Dr Camarillo was available by phone for the evaluation of this patient. The time was used to review the medical records including relevant urine studies and Prescription history (MAPs), review of the available imaging, evaluation and examination of the patient, coordination of care with the medical staff and if applicable referring physicians, as well as creation of the medical record - Pain Location Lower Back Non-Pharmacological Interventions: Inactivity, Position/Reposition, Relaxation Technique Pharmacological Interventions: Medication PQRS Narrative: Smoking Status Former smoker Narcotic Agreement Date Signed 09/13/20 Hx Alcohol Use (MH) Yes Home Medications: Ambulatory Orders Atorvastatin [Lipitor] 40 mg PO HS 07/28/13 Lansoprazole [Prevacid] 15 mg PO PC-LUNCH 07/28/13 atenoloL [Tenormin] 50 mg PO HS 07/28/13 amLODIPine [Norvasc] 5 mg PO BID 04/26/15 Olmesartan Medoxomil [Benicar] 40 mg PO DAILY 10/15/17 Biotin [Biotin Disolve] 5,000 mcg PO DAILY 07/04/18 Cholecalciferol [Vitamin D3 (25 Mcg = 1000 Iu)] 5,000 unit PO MOWEFR 07/04/18 Docusate [Colace] 200 mg PO HS 07/04/18 Loratadine [Claritin] 10 mg PO DAILY 07/04/18 Memantine [Namenda] 5 mg PO TID 07/04/18 Multivitamins, Thera [Multivitamin (formulary)] 1 tab PO DAILY 07/04/18 L.acidoph,Paracasei, B.lactis [Probiotic] 1 each PO DAILY 11/20/18 Calcium Carbonate [Calcium] 600 mg PO BID 04/03/19 Fluticasone Nasal [place] [Flonase Nasal [place]] 1 spray EA NOSTRIL BID 11/12/19 Sertraline [Zoloft] 100 mg PO HS 03/07/21 Diclofenac Sodium Gel [Voltaren Gel] 2 gm TOPICAL QID PRN 30 Days #100 gm 03/09/21 oxyCODONE HCL/ACETAMINOPHEN [Percocet 5-325 mg] 1 tab PO Q6HR PRN 30 Days #120 tab 07/14/21 oxyCODONE HCL/ACETAMINOPHEN [Percocet 5-325 mg] 1 tab PO Q6HR PRN 30 Days #120 tab 07/14/21 Controlled Substance Measures - Controlled Substance Measures Is patient prescribed a controlled substance at discharge?: Yes When asked, does pt state using other controlled substances?: Yes If prescribed controlled substance>3 days was MAPS reviewed?: Yes If Rx opioid, was Start Talking consent form obtained?: Yes If opioid is for acute pain is fill amount 7 days or less?: Yes Was information provided regarding opioid addiction?: Yes
== END ==
LOC: PNWHC3 10:29
PROVIDERS: ATTEND Specialist
DX: M51.36 Other intervertebral disc degeneration, lumbar region (principal); M47.816 Spondylosis without myelopathy or radiculopathy, lumbar region; G89.29 Other chronic pain; Z79.891 Long term (current) use of opiate analgesic; Z87.891 Personal history of nicotine dependence; Z88.5 Allergy status to narcotic agent; Z91.02 Food additives allergy status; Z91.09 Other allergy status, other than to drugs and biological substances
CPT/HCPCS: 80307; G0482; G0463; 99211

== ENCOUNTER → 2021-09-08 | Outpatient (CLI) | payer MEDICARE ==
[2021-09-08 13:42] VITALS: BP 130/65; PULSE 64; RESP 16; TEMP 97.8
--- NOTE | 2021-09-08 15:14 | P.PN ---
Subjective Progress Note Date: 09/08/21 This is folow up visit for this 80 yrs old female, with a history of severe and chronic low back pain secondary to ,lumbar degenerative disc diseases ,and lumbar spondylosis with facet arthropathy, presents today for medication refills. Pain level waxes and wanes throughout the day based on activity level but, is currently 5 out of 10, sharp, tight, pressure sensation in the middle of the lumbar spine with radiation of pain left right of midline to the paraspinal muscles as well as the bilateral lower extremities. Pain is alleviated with medications, topicals, injections, physical therapy years ago that "didn't help", use of a walker for ambulation, use of a recliner and laying supine and rest. Patient is currently on Percocet 5/325mg #120 Patient denies any side effects of the medication(s), denies excessive drowsiness or sleepiness, denies suicidal ideation and reports that the current pain medication is helping to control the pain and improve activities of daily living. Patient denies any motor or sensory deficits. Patient denies any fever or night sweats, denies any change in the bowel movements or urination. Physical Examination: -Constitutional: Cooperative. Not in acute distress . -HEENT: Neck is supple. No lymphadenopathy. No thyromegaly. Normal thyroid size. Eyes: No ptosis , no icterus, no photophobia. ENT: No auditory deficits. Normal oropharynx. No Thrush. - Respiratory: Chest clear to auscultations bilaterally. No wheezing. No rhonchi. - Cardiovascular: Regular rate and rhythm. S1 / S2 , no S3 , no S4. - Gastrointestinal: Abdomen soft no tenderness. Bowel sounds positive in all four quadrants. No organomegaly. - Genitourinary: Deferred. - Neurologic: Cranial nerve II to XII intact. No focal neurological deficits. - Psychatric: Alert & oriented x 3. Matching mood & appropriate affect. Judgment and insight intact. - Lymphatic: No Lymphadenopathy. - Musculoskeletal: Cervical spine: Muscle bulk/ tone/ strength in the bilateral upper extremities normal. Facet loading test cervical area positive. Lumbar spine: Motor bulk/ tone/ strength lower extremities , thigh and legs : 5/5 Deep tendon reflexes : Normal Knee Jerk. Normal Ankle Jerk . Vertebral body tenderness to palpation over L4, L5 Lumbar Facet Loading Test positive Straight Leg Raise: positive at 30 degrees right side/ left side Gaenslen's Test positive Sacral spine : Severe tenderness over the Sacroiliac joint: right side / left side Range of motion: Flexion of the lumbar spine <60 degrees Range of motion: Extension of the lumbar spine <20 degrees Gaenslen's Test positive Juan Carlos test: positive right side / left side Assessment and plan: Chronic low back pain secondary to lumbar degenerative disc disease , lumbar spondylosis with facet arthropathy without myelopathy Chronic and current use of high-risk medication (Opioids). The patient was counseled about risk of opioid use, psychological risk associated with opioids and was orally counseled to not overuse , divert or sell medications. Pt is to store medication in a safe location. The patient is counseled against driving while using narcotic medications and also not to use alcohol or any illicit recreational drugs. Patient verbalized understanding that the lack of compliance will result in failure to renew narcotic prescription(s) as well as possible discharge from the clinic Diagnoses, prognosis and treatment options including but not limited to physical therapy, surgical interventions, interventional therapies and medication management including narcotics and adjuvant medication were discussed. All patient questions answered MAPS reviewed and it was appropriate. Urine for UDS will be monitored in future visit Prescription refill for Percocet 5/325mg #120 new Narcotic agreement signed today Objective - Vital Signs Vital signs: Vital Signs Temp 97.8 F 09/08/21 13:37 Pulse 64 09/08/21 13:37 Resp 16 09/08/21 13:37 BP 130/65 09/08/21 13:37 Pulse Ox 96 09/08/21 13:37 FiO2 Intake & Output 09/07/21 09/08/21 09/08/21 18:59 06:59 18:59 Weight 72.121 kg
== END ==
LOC: PNWHC3 12:55
PROVIDERS: ATTEND Specialist
DX: M51.36 Other intervertebral disc degeneration, lumbar region (principal); M47.816 Spondylosis without myelopathy or radiculopathy, lumbar region; G89.29 Other chronic pain; Z79.891 Long term (current) use of opiate analgesic; Z88.5 Allergy status to narcotic agent; Z88.6 Allergy status to analgesic agent; Z91.02 Food additives allergy status; Z88.8 Allergy status to other drugs, medicaments and biological substances; Z87.891 Personal history of nicotine dependence
CPT/HCPCS: 99211

== ENCOUNTER → 2021-11-02 | Outpatient (CLI) | payer MEDICARE ==
[2021-11-02 14:20] VITALS: BP 154/69; PULSE 66; RESP 18; TEMP 98.1
--- NOTE | 2021-11-02 14:54 | P.PAINPG ---
PQRS Measure Charge Sheet Comment: A 80 yr old female with a history of severe and chronic low back pain secondary to lumbar degenerative disc diseases and lumbar spondylosis with facet arthropathy without myelopathy presents today for medication refills. Pain level is currently at 6/10 in intensity, constant, localized in the lumbar spine, achy/sore in character w shooting towards the BLEs. Pain is provoked by standing for periods of 10 min or more. Pain is alleviated with heat, medications, repositioning and rest. Can not afford PT as she is on Social Security. Advised against chiropractic treatments. Interventional pain procedures completed include BL SI, BL RFA L3-5 (July 2019) Patient is currently on Percocet 5/325mg #120 Patient denies any side effects of the medication(s), denies excessive drowsiness or sleepiness, denies suicidal ideation and reports that the current pain medication is helping to control the pain and improve activities of daily living. Patient denies any motor or sensory deficits. Patient denies any fever or night sweats, denies any change in the bowel movements or urination. Physical Examination: -Constitutional: Cooperative. Not in acute distress . - Neurologic: Cranial nerve II to XII intact. No focal neurological deficits. - Psychatric: Alert & oriented x 3. Matching mood & appropriate affect. Judgment and insight intact. - Musculoskeletal: Cervical spine: Muscle bulk/ tone/ strength in the bilateral upper extremities normal Vertebral body tenderness to palpation over [place] test positive Distraction test positive Facet loading test positive Thoracic spine Muscle bulk / tone/ strength in the bilateral paraspinal muscles normal Vertebral body tender to palpation over Facet loading test positive Lumbar spine: Motor bulk/ tone/ strength lower extremities , thigh and legs : 5/5 Deep tendon reflexes : Normal Knee Jerk. Normal Ankle Jerk . Vertebral body tenderness to palpation over L4, L5 Lumbar Facet Loading Test positive over BL L4-L5, L5-S1 Straight Leg Raise: positive at 30 degrees right side/ left side Gaenslen's Test positive Sacral spine : Severe tenderness over the Sacroiliac joint: right side / left side Range of motion: Flexion of the lumbar spine <60 degrees Range of motion: Extension of the lumbar spine <20 degrees Gaenslen's Test positive Kenney's Test positive Juan Carlos test: positive right side / left side Thigh Thrust Test Sacral Thrust Test Assessment and plan: Chronic low back pain secondary to lumbar degenerative disc disease , lumbar spondylosis with facet arthropathy without myelopathy Chronic and current use of high-risk medication (Opioids). The patient was counseled about risk of opioid use, psychological risk as sociated with opioids and was orally counseled to not overuse , divert or sell medications. Pt is to store medication in a safe location. The patient is counseled against driving while using narcotic medications and also not to use alcohol or any illicit recreational drugs. Patient verbalized understanding that the lack of compliance will result in failure to renew narcotic prescription(s) as well as possible discharge from the clinic Diagnoses, prognosis and treatment options including but not limited to physical therapy, surgical interventions, interventional therapies and medication management including narcotics and adjuvant medication were discussed. All patient questions answered MAPS reviewed and it was appropriate. UDS from 07/14/21 reviewed. Will collect urine for UDS today 11/02/21 Prescription refill for Percocet 5/325mg #120 w 1 RF I have spent less than 30 minutes on patient care today. Dr Camarillo was available by phone for the evaluation of this patient. The time was used to review the medical records including relevant urine studies and Prescription history (MAPs), review of the available imaging, evaluation and examination of the patient, coordination of care with the medical staff and if applicable referring physicians, as well as creation of the medical record PQRS Narrative: Smoking Status Former smoker Narcotic Agreement Date Signed 09/08/21 Hx Alcohol Use (MH) Yes Home Medications: Ambulatory Orders Atorvastatin [Lipitor] 40 mg PO HS 07/28/13 Lansoprazole [Prevacid] 15 mg PO PC-LUNCH 07/28/13 atenoloL [Tenormin] 50 mg PO HS 07/28/13 amLODIPine [Norvasc] 5 mg PO BID 04/26/15 Olmesartan Medoxomil [Benicar] 40 mg PO DAILY 10/15/17 Biotin [Biotin Disolve] 5,000 mcg PO DAILY 07/04/18 Cholecalciferol [Vitamin D3 (25 Mcg = 1000 Iu)] 5,000 unit PO MOWEFR 07/04/18 Docusate [Colace] 200 mg PO HS 07/04/18 Loratadine [Claritin] 10 mg PO DAILY 07/04/18 Memantine [Namenda] 5 mg PO TID 07/04/18 Multivitamins, Thera [Multivitamin (formulary)] 1 tab PO DAILY 07/04/18 L.acidoph,Paracasei, B.lactis [Probiotic] 1 each PO DAILY 11/20/18 Calcium Carbonate [Calcium] 600 mg PO BID 04/03/19 Fluticasone Nasal [place] [Flonase Nasal [place]] 1 spray EA NOSTRIL BID 11/12/19 Sertraline [Zoloft] 100 mg PO HS 03/07/21 Diclofenac Sodium Gel [Voltaren Gel] 2 gm TOPICAL QID PRN 30 Days #100 gm 03/09/21 oxyCODONE HCL/ACETAMINOPHEN [Percocet 5-325 mg] 1 tab PO Q6HR PRN 30 Days #120 tab 09/08/21 oxyCODONE HCL/ACETAMINOPHEN [Percocet 5-325 mg] 1 tab PO Q6HR PRN 30 Days #120 tab 09/08/21 Controlled Substance Measures - Controlled Substance Measures Is patient prescribed a controlled substance at discharge?: No
[2021-11-03 10:14] LABS: Serum Amphetamine Negative; Serum Barbiturates Negative; Serum Benzodiazepine Negative; Serum Cocaine Negative; Serum Methadone Negative; Serum Opiates Negative; Serum Phencyclidine Negative; Serum Propoxyphene Negative; Serum THC (Cannabis) Negative
== END ==
LOC: PNWHC3 12:52
PROVIDERS: ATTEND Specialist
DX: Z02.83 Encounter for blood-alcohol and blood-drug test (principal); M51.36 Other intervertebral disc degeneration, lumbar region; G89.29 Other chronic pain; M47.816 Spondylosis without myelopathy or radiculopathy, lumbar region; Z87.891 Personal history of nicotine dependence; Z72.89 Other problems related to lifestyle
CPT/HCPCS: 80307; G0463; 99211

== ENCOUNTER → 2021-12-28 | Outpatient (CLI) | payer MEDICARE ==
[2021-12-28 13:18] VITALS: BP 118/81; PULSE 62; RESP 18; TEMP 98.1
--- NOTE | 2021-12-28 13:33 | P.PN ---
Subjective Progress Note Date: 12/28/21 This is folow up visit for this 81 yrs old female, with a history of severe and chronic low back pain secondary to ,lumbar degenerative disc diseases ,and lumbar spondylosis with facet arthropathy, presents today for medication refills. Pain level waxes ,and wanes throughout the day based on activity level but, is currently 5 out of 10, sharp, tight, pressure sensation in the middle of the lumbar spine with radiation of pain left right of midline to the paraspinal muscles as well as the bilateral lower extremities. Pain is alleviated with medications, topicals, injections, physical therapy years ago that "didn't help", use of a walker for ambulation, use of a recliner and laying supine and rest, patient complaining of some numbness and tingling in the lower extremity, she has few episodes of imbalance , but she had no weakness in her lower extremities Patient is currently on Percocet 5/325mg #120 Patient denies any side effects of the medication(s), denies excessive drowsiness or sleepiness, denies suicidal ideation and reports that the current pain medication is helping to control the pain and improve activities of daily living. Patient denies any motor or sensory deficits. Patient denies any fever or night sweats, denies any change in the bowel movements or urination. Physical Examination: -Constitutional: Cooperative. Not in acute distress . -HEENT: Neck is supple. No lymphadenopathy. No thyromegaly. Normal thyroid size. Eyes: No ptosis , no icterus, no photophobia. ENT: No auditory deficits. Normal oropharynx. No Thrush. - Respiratory: Chest clear to auscultations bilaterally. No wheezing. No rhonchi. - Cardiovascular: Regular rate and rhythm. S1 / S2 , no S3 , no S4. - Gastrointestinal: Abdomen soft no tenderness. Bowel sounds positive in all four quadrants. No organomegaly. - Genitourinary: Deferred. - Neurologic: Cranial nerve II to XII intact. No focal neurological deficits. - Psychatric: Alert & oriented x 3. Matching mood & appropriate affect. Judgment and insight intact. - Lymphatic: No Lymphadenopathy. - Musculoskeletal: Cervical spine: Muscle bulk/ tone/ strength in the bilateral upper extremities normal. Facet loading test cervical area positive. Lumbar spine: Motor bulk/ tone/ strength lower extremities , thigh and legs : 5/5 Deep tendon reflexes : Normal Knee Jerk. Normal Ankle Jerk . Vertebral body tenderness to palpation over L4, L5 Lumbar Facet Loading Test positive Straight Leg Raise: positive at 30 degrees right side/ left side Gaenslen's Test positive Sacral spine : Severe tenderness over the Sacroiliac joint: right side / left side Range of motion: Flexion of the lumbar spine <60 degrees Range of motion: Extension of the lumbar spine <20 degrees Gaenslen's Test positive Juan Carlos test: positive right side / left side Assessment and plan: Chronic low back pain secondary to lumbar degenerative disc disease , lumbar spondylosis with facet arthropathy without myelopathy Chronic and current use of high-risk medication (Opioids). The patient was counseled about risk of opioid use, psychological risk associated with opioids and was orally counseled to not overuse , divert or sell medications. Pt is to store medication in a safe location. The patient is counseled against driving while using narcotic medications and also not to use alcohol or any illicit recreational drugs. Patient verbalized understanding that the lack of compliance will result in failure to renew narcotic prescription(s) as well as possible discharge from the clinic Diagnoses, prognosis and treatment options including but not limited to physical therapy, surgical interventions, interventional therapies and medication management including narcotics and adjuvant medication were discussed. All patient questions answered MAPS reviewed and it was appropriate. Urine for UDS will be monitored in future visit Prescription refill for Percocet 5/325mg #120 X1 refile Discussed with the patient the option of starting her on Lyrica or Neurontin patient refused to use these medication, she said she tried them in the past , and she had side effects, regarding her balance issue patient will follow up with her primary care Objective - Vital Signs Vital signs: Vital Signs Temp 98.1 F 12/28/21 13:13 Pulse 62 12/28/21 13:13 Resp 18 12/28/21 13:13 BP 118/81 12/28/21 13:13 Pulse Ox 94 L 12/28/21 13:13 FiO2 Intake & Output 12/27/21 12/28/21 12/28/21 18:59 06:59 18:59 Weight 73.936 kg
== END | disposition home or self-care (01) ==
LOC: PNWHC3 12:54
PROVIDERS: ATTEND Specialist
DX: M51.36 Other intervertebral disc degeneration, lumbar region (principal); M46.96 Unspecified inflammatory spondylopathy, lumbar region; M47.896 Other spondylosis, lumbar region
CPT/HCPCS: 99211

== ENCOUNTER → 2022-02-22 | Outpatient (CLI) | payer MEDICARE ==
--- NOTE | 2022-02-22 15:09 | P.PAINPG ---
PQRS Measure Charge Sheet Comment: A 81 yr old female with a history of severe and chronic low back pain secondary to lumbar DDD and spondylosis with facet arthropathy without myelopathy presents today for medication refills. Pain level is provoked at 6 /10 in intensity, constant, localized in the lumbar spine, sore/ achy in character w shooting towards the posterior BLEs. Pain is provoked by bending, lifting. Pain is alleviated with PT in the past, home exercise as tolerated, medications, use of a walker for ambulation, reposition and rest. Patient is currently on Percocet 5/325mg #120 Patient denies any side effects of the medication(s), denies excessive drowsiness or sleepiness, denies suicidal ideation and reports that the current pain medication is helping to control the pain and improve activities of daily living. Patient denies any motor or sensory deficits. Patient denies any fever or night sweats, denies any change in the bowel movements or urination. Physical Examination: -Constitutional: Cooperative. Not in acute distress . - Neurologic: Cranial nerve II to XII intact. No focal neurological deficits. - Psychatric: Alert & oriented x 3. Matching mood & appropriate affect. Judgment and insight intact. - Musculoskeletal: Cervical spine: Muscle bulk/ tone/ strength in the bilateral upper extremities normal Vertebral body tenderness to palpation over Spurling test positive Distraction test positive Facet loading test positive Thoracic spine Muscle bulk / tone/ strength in the bilateral paraspinal muscles normal Vertebral body tender to palpation over Facet loading test positive Lumbar spine: Motor bulk/ tone/ strength lower extremities , thigh and legs : 5/5 Deep tendon reflexes : Normal Knee Jerk. Normal Ankle Jerk . Vertebral body tenderness to palpation over L5 Lumbar Facet Loading Test positive Straight Leg Raise: positive at 30 degrees right side/ left side Gaenslen's Test positive Sacral spine : Severe tenderness over the Sacroiliac joint: right side / left side Range of motion: Flexion of the lumbar spine <60 degrees Range of motion: Extension of the lumbar spine <20 degrees Gaenslen's Test positive Juan Carlos test: positive right side / left side Thigh Thrust Test Sacral Thrust Test Assessment and plan: Chronic low back pain secondary to lumbar degenerative disc disease, spondylosis with facet arthropathy without myelopathy Chronic and current use of high-risk medication (Opioids). The patient was counseled about risk of opioid use, psychological risk associated with opioids and was orally counseled to not overuse , divert or sell medications. Pt is to store medication in a safe location. The patient is counseled against driving while using narcotic medications and also not to use alcohol or any illicit recreational drugs. Patient verbalized understanding that the lack of compliance will result in failure to renew narcotic prescription(s) as well as possible discharge from the clinic Diagnoses, prognosis and treatment options including but not limited to physical therapy, surgical interventions, interventional therapies and medication management including narcotics and adjuvant medication were discussed. All patient questions answered MAPS reviewed and it was appropriate. Prescription refill for Percocet 5/325mg #120 w 1 RF I have spent less than 30 minutes on patient care today. Dr Camarillo was available by phone for the evaluation of this patient. The time was used to review the medical records including relevant urine studies and Prescription history (MAPs), review of the available imaging, evaluation and examination of the patient, coordination of care with the medical staff and if applicable referring physicians, as well as creation of the medical record PQRS Narrative: Smoking Status Former smoker Narcotic Agreement Date Signed 09/08/21 Hx Alcohol Use (MH) Yes Home Medications: Ambulatory Orders Atorvastatin [Lipitor] 40 mg PO HS 07/28/13 Lansoprazole [Prevacid] 15 mg PO PC-LUNCH 07/28/13 atenoloL [Tenormin] 50 mg PO HS 07/28/13 amLODIPine [Norvasc] 5 mg PO BID 04/26/15 Olmesartan Medoxomil [Benicar] 40 mg PO DAILY 10/15/17 Biotin [Biotin Disolve] 5,000 mcg PO DAILY 07/04/18 Cholecalciferol [Vitamin D3 (25 Mcg = 1000 Iu)] 5,000 unit PO MOWEFR 07/04/18 Docusate [Colace] 200 mg PO HS 07/04/18 Loratadine [Claritin] 10 mg PO DAILY 07/04/18 Memantine [Namenda] 5 mg PO TID 07/04/18 Multivitamins, Thera [Multivitamin (formulary)] 1 tab PO DAILY 07/04/18 L.acidoph,Paracasei, B.lactis [Probiotic] 1 each PO DAILY 11/20/18 Calcium Carbonate [Calcium] 600 mg PO BID 04/03/19 Fluticasone Nasal [place] [Flonase Nasal [place]] 1 spray EA NOSTRIL BID 11/12/19 Sertraline [Zoloft] 100 mg PO HS 03/07/21 Diclofenac Sodium Gel [Voltaren Gel] 2 gm TOPICAL QID PRN 30 Days #100 gm 03/09/21 oxyCODONE HCL/ACETAMINOPHEN [Percocet 5-325 mg] 1 tab PO Q6HR PRN 30 Days #120 tab 02/22/22 oxyCODONE HCL/ACETAMINOPHEN [Percocet 5-325 mg] 1 tab PO Q6HR PRN 30 Days #120 tab 02/22/22 Controlled Substance Measures - Controlled Substance Measures Is patient prescribed a controlled substance at discharge?: No
[2022-02-22 15:11] VITALS: BP 99/53; PULSE 64; RESP 18; TEMP 98.3
== END ==
LOC: PNWHC3 12:48
PROVIDERS: ATTEND Specialist
DX: M47.816 Spondylosis without myelopathy or radiculopathy, lumbar region (principal); M51.36 Other intervertebral disc degeneration, lumbar region; Z79.891 Long term (current) use of opiate analgesic; Z88.5 Allergy status to narcotic agent; Z88.8 Allergy status to other drugs, medicaments and biological substances; Z88.6 Allergy status to analgesic agent; Z91.02 Food additives allergy status; Z91.048 Other nonmedicinal substance allergy status; Z87.891 Personal history of nicotine dependence
CPT/HCPCS: 99211

== ENCOUNTER → 2022-04-19 | Outpatient (CLI) | payer MEDICARE ==
[2022-04-19 14:02] VITALS: BP 114/68; PULSE 66; RESP 18
--- NOTE | 2022-04-19 15:14 | P.PAINPG ---
PQRS Measure Charge Sheet Comment: A 81 yr old female with a history of severe and chronic LBP secondary to lumbar DDD and spondylosis with facet arthropathy without myelopathy presents today for medication refills. Pain level is provoked at 6 /10 in intensity, constant, localized in the lumbar spine, sore in character w shooting towards . Pain is provoked by bending, lifting. Pain is alleviated with medications (Percocet), topicals, use of a walker for ambulation, repositioning and rest. PT, massage and chiropractic treatments is unaffordable at this time. PT was years ago. Patient is currently on Percocet 5/325mg #120 Patient denies any side effects of the medication(s), denies excessive drowsiness or sleepiness, denies suicidal ideation and reports that the current pain medication is helping to control the pain and improve activities of daily living. Patient denies any motor or sensory deficits. Patient denies any fever or night sweats, denies any change in the bowel movements or urination. Physical Examination: -Constitutional: Cooperative. Not in acute distress . - Neurologic: Cranial nerve II to XII intact. No focal neurological deficits. - Psychatric: Alert & oriented x 3. Matching mood & appropriate affect. Judgment and insight intact. - Musculoskeletal: Cervical spine: Muscle bulk/ tone/ strength in the bilateral upper extremities normal Vertebral body tenderness to palpation over Spurling test positive Distraction test positive Facet loading test positive TTP Thoracic spine Muscle bulk / tone/ strength in the bilateral paraspinal muscles normal Vertebral body tender to palpation over Facet loading test positive TTP Lumbar spine: Motor bulk/ tone/ strength lower extremities , thigh and legs : 5/5 Deep tendon reflexes : Normal Knee Jerk. Normal Ankle Jerk . Vertebral body tenderness to palpation over L2, L3, L4, L5 Lumbar Facet Loading Test positive Straight Leg Raise: positive at 30 degrees right side/ left side Gaenslen's Test positive Sacral spine : Severe tenderness over the Sacroiliac joint: right side / left side Range of motion: Flexion of the lumbar spine <60 degrees Range of motion: Extension of the lumbar spine <20 degrees Gaenslen's Test positive right side / left side Juan Carlos test: positive right side / left side Thigh Thrust Test positive right side / left side Sacral Thrust Test positive right side / left side Assessment and plan: Chronic LBP secondary to lumbar DDD, spondylosis with facet arthropathy without myelopathy Chronic and current use of high-risk medication (Opioids). The patient was counseled about risk of opioid use, psychological risk associated with opioids and was orally counseled to not overuse , divert or sell medications. Pt is to store medication in a safe location. The patient is counseled against driving while using narcotic medications and also not to use alcohol or any illicit recreational drugs. Patient verbalized understanding that the lack of compliance will result in failure to renew narcotic prescription(s) as well as possible discharge from the clinic Diagnoses, prognosis and treatment options including but not limited to physical therapy, surgical interventions, interventional therapies and medication management including narcotics and adjuvant medication were discussed. All patient questions answered MAPS reviewed and it was appropriate. Prescription refill for Percocet 5/325mg #120 w 2 RF I have spent less than 30 minutes on patient care today. Dr Camarillo was available by phone for the evaluation of this patient. The time was used to review the medical records including relevant urine studies and Prescription history (MAPs), review of the available imaging, evaluation and examination of the patient, coordination of care with the medical staff and if applicable referring physicians, as well as creation of the medical record PQRS Narrative: Smoking Status Former smoker Narcotic Agreement Date Signed 09/08/21 Hx Alcohol Use (MH) Yes Home Medications: Ambulatory Orders Atorvastatin [Lipitor] 40 mg PO HS 07/28/13 Lansoprazole [Prevacid] 15 mg PO PC-LUNCH 07/28/13 atenoloL [Tenormin] 50 mg PO HS 07/28/13 amLODIPine [Norvasc] 5 mg PO BID 04/26/15 Olmesartan Medoxomil [Benicar] 40 mg PO DAILY 10/15/17 Biotin [Biotin Disolve] 5,000 mcg PO DAILY 07/04/18 Cholecalciferol [Vitamin D3 (25 Mcg = 1000 Iu)] 5,000 unit PO MOWEFR 07/04/18 Docusate [Colace] 200 mg PO HS 07/04/18 Loratadine [Claritin] 10 mg PO DAILY 07/04/18 Memantine [Namenda] 5 mg PO TID 07/04/18 Multivitamins, Thera [Multivitamin (formulary)] 1 tab PO DAILY 07/04/18 L.acidoph,Paracasei, B.lactis [Probiotic] 1 each PO DAILY 11/20/18 Calcium Carbonate [Calcium] 600 mg PO BID 04/03/19 Fluticasone Nasal [place] [Flonase Nasal [place]] 1 spray EA NOSTRIL BID 11/12/19 Sertraline [Zoloft] 100 mg PO HS 03/07/21 Diclofenac Sodium Gel [Voltaren Gel] 2 gm TOPICAL QID PRN 30 Days #100 gm 03/09/21 Empagliflozin [Jardiance] 10 mg PO DAILY 02/22/22 Ezetimibe [Zetia] 10 mg PO DAILY 02/22/22 oxyCODONE HCL/ACETAMINOPHEN [Percocet 5-325 mg] 1 tab PO Q6HR PRN 30 Days #120 tab 04/19/22 oxyCODONE HCL/ACETAMINOPHEN [Percocet 5-325 mg] 1 tab PO Q6HR PRN 30 Days #120 tab 04/19/22 oxyCODONE HCL/ACETAMINOPHEN [Percocet 5-325 mg] 1 tab PO Q6HR PRN 30 Days #120 tab 04/19/22 Controlled Substance Measures - Controlled Substance Measures Is patient prescribed a controlled substance at discharge?: Yes When asked, does pt state using other controlled substances?: No
== END ==
LOC: PNWHC3 12:52
PROVIDERS: ATTEND Specialist
DX: M51.36 Other intervertebral disc degeneration, lumbar region (principal); M47.816 Spondylosis without myelopathy or radiculopathy, lumbar region; G89.29 Other chronic pain; Z79.891 Long term (current) use of opiate analgesic; Z87.891 Personal history of nicotine dependence; Z88.5 Allergy status to narcotic agent; Z88.6 Allergy status to analgesic agent; Z88.8 Allergy status to other drugs, medicaments and biological substances
CPT/HCPCS: 80307; G0482; G0463; 99212

== ENCOUNTER → 2022-07-12 | Outpatient (CLI) | payer MEDICARE ==
[2022-07-12 14:11] VITALS: BP 109/68; PULSE 60; RESP 18; TEMP 97.5
--- NOTE | 2022-07-12 14:54 | P.PAINPG ---
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 Pain level is provoked at 6 /10 in intensity, constant, localized in the lumbar spine, sore in character w shooting towards the BLEs. Pain is provoked by bending, lifting. Pain is alleviated with medications (Percocet), topicals, use of a walker for ambulation, sitting, repositioning and rest. PT, massage and chiropractic treatments is unaffordable at this time. PT was years ago. Injections in the past have been ineffective. Patient is currently on Percocet 5/325mg #120 Patient denies any side effects of the medication(s), denies excessive drowsiness or sleepiness, denies suicidal ideation and reports that the current pain medication is helping to control the pain and improve activities of daily living. Patient denies any motor or sensory deficits. Patient denies any fever or night sweats, denies any change in the bowel movements or urination. Physical Examination: -Constitutional: Cooperative. Not in acute distress . - Neurologic: Cranial nerve II to XII intact. No focal neurological deficits. - Psychatric: Alert & oriented x 3. Matching mood & appropriate affect. Judgment and insight intact. - Musculoskeletal: Cervical spine: Muscle bulk/ tone/ strength in the bilateral upper extremities normal Vertebral body tenderness to palpation over Spurling test positive Distraction test positive Facet loading test positive TTP Thoracic spine Muscle bulk / tone/ strength in the bilateral paraspinal muscles normal Vertebral body tender to palpation over Facet loading test positive TTP Lumbar spine: Motor bulk/ tone/ strength lower extremities , thigh and legs : 5/5 Deep tendon reflexes : Normal Knee Jerk. Normal Ankle Jerk . Vertebral body tenderness to palpation over L2, L3, L4, L5 Lumbar Facet Loading Test positive Straight Leg Raise: positive at 30 degrees right side/ left side Gaenslen's Test positive Sacral spine : Severe tenderness over the Sacroiliac joint: right side / left side Range of motion: Flexion of the lumbar spine <60 degrees Range of motion: Extension of the lumbar spine <20 degrees Gaenslen's Test positive right side / left side Juan Carlos test: positive right side / left side Thigh Thrust Test positive right side / left side Sacral Thrust Test positive right side / left side Assessment and plan: Chronic LBP secondary to lumbar DDD, spondylosis with facet arthropathy without myelopathy Chronic and current use of high-risk medication (Opioids). The patient was counseled about risk of opioid use, psychological risk associated with opioids and was orally counseled to not overuse , divert or sell medications. Pt is to store medication in a safe location. The patient is counseled against driving while using narcotic medications and also not to use alcohol or any illicit recreational drugs. Patient verbalized understanding that the lack of compliance will result in failure to renew narcotic prescription(s) as well as possible discharge from the clinic Diagnoses, prognosis and treatment options including but not limited to physical therapy, surgical interventions, interventional therapies and medication management including narcotics and adjuvant medication were discussed. All patient questions answered MAPS reviewed and it was appropriate. UDS from Apr 2022 reviewed and consistent. Prescription refill for Percocet 5/325mg #120 w 2 RF. Add Voltaren gel. I have spent less than 30 minutes on patient care today. Dr Camarillo was available by phone for the evaluation of this patient. The time was used to review the medical records including relevant urine studies and Prescription history (MAPs), review of the available imaging, evaluation and examination of the patient, coordination of care with the medical staff and if applicable referring physicians, as well as creation of the medical record PQRS Narrative: Smoking Status Former smoker Narcotic Agreement Date Signed 09/08/21 Hx Alcohol Use (MH) Yes Home Medications: Ambulatory Orders Atorvastatin [Lipitor] 40 mg PO HS 07/28/13 Lansoprazole [Prevacid] 15 mg PO PC-LUNCH 07/28/13 atenoloL [Tenormin] 50 mg PO HS 07/28/13 amLODIPine [Norvasc] 5 mg PO BID 04/26/15 Olmesartan Medoxomil [Benicar] 40 mg PO DAILY 10/15/17 Biotin [Biotin Disolve] 5,000 mcg PO DAILY 07/04/18 Cholecalciferol [Vitamin D3 (25 Mcg = 1000 Iu)] 5,000 unit PO MOWEFR 07/04/18 Docusate [Colace] 200 mg PO HS 07/04/18 Loratadine [Claritin] 10 mg PO DAILY 07/04/18 Memantine [Namenda] 5 mg PO TID 07/04/18 Multivitamins, Thera [Multivitamin (formulary)] 1 tab PO DAILY 07/04/18 L.acidoph,Paracasei, B.lactis [Probiotic] 1 each PO DAILY 11/20/18 Calcium Carbonate [Calcium] 600 mg PO BID 04/03/19 Fluticasone Nasal [place] [Flonase Nasal [place]] 1 spray EA NOSTRIL BID 11/12/19 Sertraline [Zoloft] 100 mg PO HS 03/07/21 Empagliflozin [Jardiance] 10 mg PO DAILY 02/22/22 Ezetimibe [Zetia] 10 mg PO DAILY 02/22/22 Diclofenac Sodium Gel [Voltaren Gel] 2 gm TOPICAL QID PRN 30 Days #100 gm 07/12/22 oxyCODONE HCL/ACETAMINOPHEN [Percocet 5-325 mg] 1 tab PO Q6HR PRN 30 Days #120 tab 07/12/22 oxyCODONE HCL/ACETAMINOPHEN [Percocet 5-325 mg] 1 tab PO Q6HR PRN 30 Days #120 tab 07/12/22 oxyCODONE HCL/ACETAMINOPHEN [Percocet 5-325 mg] 1 tab PO Q6HR PRN 30 Days #120 tab 07/12/22 Controlled Substance Measures - Controlled Substance Measures Is patient prescribed a controlled substance at discharge?: Yes When asked, does pt state using other controlled substances?: No If prescribed controlled substance>3 days was MAPS reviewed?: Yes
== END ==
LOC: PNWHC3 13:10
PROVIDERS: ATTEND Specialist
DX: M51.36 Other intervertebral disc degeneration, lumbar region (principal); M47.816 Spondylosis without myelopathy or radiculopathy, lumbar region; G89.29 Other chronic pain; Z79.891 Long term (current) use of opiate analgesic; Z87.891 Personal history of nicotine dependence; Z88.5 Allergy status to narcotic agent; Z88.8 Allergy status to other drugs, medicaments and biological substances; Z88.6 Allergy status to analgesic agent
CPT/HCPCS: 99211

== ENCOUNTER → 2022-10-04 | Outpatient (CLI) | payer MEDICARE ==
[2022-10-04 13:38] VITALS: BP 130/78; PULSE 62; RESP 16; TEMP 97.7
--- NOTE | 2022-10-05 07:56 | P.PAINPG ---
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 Pain level is provoked at 6 /10 in intensity, constant, localized in the lumbar spine, sore in character w shooting towards the BLEs. Pain is provoked by bending, lifting. Pain is alleviated with medications (Percocet), topicals, use of a walker for ambulation, sitting, repositioning and rest. PT, massage and chiropractic treatments is unaffordable at this time. PT was years ago. Injections in the past have been ineffective. Patient is currently on Percocet 5/325mg #120, Voltaren gel Patient denies any side effects of the medication(s), denies excessive drowsiness or sleepiness, denies suicidal ideation and reports that the current pain medication is helping to control the pain and improve activities of daily living. Patient denies any motor or sensory deficits. Patient denies any fever or night sweats, denies any change in the bowel movements or urination. Physical Examination: -Constitutional: Cooperative. Not in acute distress . - Neurologic: Cranial nerve II to XII intact. No focal neurological deficits. - Psychatric: Alert & oriented x 3. Matching mood & appropriate affect. Judgment and insight intact. - Musculoskeletal: Cervical spine: Muscle bulk/ tone/ strength in the bilateral upper extremities normal Vertebral body tenderness to palpation over Spurling test positive Distraction test positive Facet loading test positive TTP Thoracic spine Muscle bulk / tone/ strength in the bilateral paraspinal muscles normal Vertebral body tender to palpation over Facet loading test positive TTP Lumbar spine: Motor bulk/ tone/ strength lower extremities , thigh and legs : 5/5 Deep tendon reflexes : Normal Knee Jerk. Normal Ankle Jerk . Vertebral body tenderness to palpation over L2, L3, L4, L5 Lumbar Facet Loading Test positive Straight Leg Raise: positive at 30 degrees right side/ left side Gaenslen's Test positive Sacral spine : Severe tenderness over the Sacroiliac joint: right side / left side Range of motion: Flexion of the lumbar spine <60 degrees Range of motion: Extension of the lumbar spine <20 degrees Gaenslen's Test positive right side / left side Juan Carlos test: positive right side / left side Thigh Thrust Test positive right side / left side Sacral Thrust Test positive right side / left side Assessment and plan: Chronic LBP secondary to lumbar DDD, spondylosis with facet arthropathy without myelopathy Chronic and current use of high-risk medication (Opioids). The patient was counseled about risk of opioid use, psychological risk associated with opioids and was orally counseled to not overuse , divert or sell medications. Pt is to store medication in a safe location. The patient is counseled against driving while using narcotic medications and also not to use alcohol or any illicit recreational drugs. Patient verbalized understanding that the lack of compliance will result in failure to renew narcotic prescription(s) as well as possible discharge from the clinic Diagnoses, prognosis and treatment options including but not limited to physical therapy, surgical interventions, interventional therapies and medication management including narcotics and adjuvant medication were discussed. All patient questions answered MAPS reviewed and it was appropriate. UDS from Apr 2022 reviewed and consistent. Prescription refill for Percocet 5/325mg #120 w 2 RF. Add Voltaren gel. I have spent less than 30 minutes on patient care today. Dr Camarillo was available by phone for the evaluation of this patient. The time was used to review the medical records including relevant urine studies and Prescription history (MAPs), review of the available imaging, evaluation and examination of the patient, coordination of care with the medical staff and if applicable referring physicians, as well as creation of the medical record PQRS Narrative: Smoking Status Former smoker Narcotic Agreement Date Signed 09/08/21 Hx Alcohol Use (MH) Yes Home Medications: Ambulatory Orders Atorvastatin [Lipitor] 40 mg PO HS 07/28/13 Lansoprazole [Prevacid] 15 mg PO PC-LUNCH 07/28/13 atenoloL [Tenormin] 50 mg PO HS 07/28/13 amLODIPine [Norvasc] 5 mg PO BID 04/26/15 Olmesartan Medoxomil [Benicar] 40 mg PO DAILY 10/15/17 Biotin [Biotin Disolve] 5,000 mcg PO DAILY 07/04/18 Cholecalciferol [Vitamin D3 (25 Mcg = 1000 Iu)] 5,000 unit PO MOWEFR 07/04/18 Docusate [Colace] 200 mg PO HS 07/04/18 Loratadine [Claritin] 10 mg PO DAILY 07/04/18 Memantine [Namenda] 5 mg PO TID 07/04/18 Multivitamins, Thera [Multivitamin (formulary)] 1 tab PO DAILY 07/04/18 L.acidoph,Paracasei, B.lactis [Probiotic] 1 each PO DAILY 11/20/18 Calcium Carbonate [Calcium] 600 mg PO BID 04/03/19 Fluticasone Nasal [place] [Flonase Nasal [place]] 1 spray EA NOSTRIL BID 11/12/19 Sertraline [Zoloft] 100 mg PO HS 03/07/21 Empagliflozin [Jardiance] 10 mg PO DAILY 02/22/22 Ezetimibe [Zetia] 10 mg PO DAILY 02/22/22 Diclofenac Sodium Gel [Voltaren Gel] 2 gm TOPICAL QID PRN 30 Days #100 gm 07/12/22 oxyCODONE HCL/ACETAMINOPHEN [Percocet 5-325 mg] 1 tab PO Q6HR PRN 30 Days #120 tab 07/12/22 oxyCODONE HCL/ACETAMINOPHEN [Percocet 5-325 mg] 1 tab PO Q6HR PRN 30 Days #120 tab 07/12/22 oxyCODONE HCL/ACETAMINOPHEN [Percocet 5-325 mg] 1 tab PO Q6HR PRN 30 Days #120 tab 07/12/22 Controlled Substance Measures - Controlled Substance Measures Is patient prescribed a controlled substance at discharge?: Yes When asked, does pt state using other controlled substances?: No If prescribed controlled substance>3 days was MAPS reviewed?: Yes
== END ==
LOC: PNWHC3 13:01
PROVIDERS: ATTEND Specialist
DX: M51.36 Other intervertebral disc degeneration, lumbar region (principal); M47.816 Spondylosis without myelopathy or radiculopathy, lumbar region; G89.29 Other chronic pain; Z79.891 Long term (current) use of opiate analgesic; Z87.891 Personal history of nicotine dependence; Z88.5 Allergy status to narcotic agent; Z88.8 Allergy status to other drugs, medicaments and biological substances; Z88.6 Allergy status to analgesic agent
CPT/HCPCS: 99211

== ENCOUNTER → 2022-12-27 | Outpatient (CLI) | payer MEDICARE ==
[2022-12-27 13:46] VITALS: BP 120/68; PULSE 63; RESP 16
--- NOTE | 2022-12-27 15:06 | P.PAINPG ---
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 Pain level is provoked at 6 /10 in intensity, constant, localized in the lumbar spine, sore in character w shooting towards the BLEs. Pain is provoked by bending, lifting. Pain is alleviated with medications (Percocet), topicals, use of a walker for ambulation, sitting, repositioning and rest. PT, massage and chiropractic treatments is unaffordable at this time. PT was years ago. Injections in the past have been ineffective. Patient is currently on Percocet 5/325mg #120, Voltaren gel Patient denies any side effects of the medication(s), denies excessive drowsiness or sleepiness, denies suicidal ideation and reports that the current pain medication is helping to control the pain and improve activities of daily living. Patient denies any motor or sensory deficits. Patient denies any fever or night sweats, denies any change in the bowel movements or urination. Physical Examination: -Constitutional: Cooperative. Not in acute distress . - Neurologic: Cranial nerve II to XII intact. No focal neurological deficits. - Psychatric: Alert & oriented x 3. Matching mood & appropriate affect. Judgment and insight intact. - Musculoskeletal: Cervical spine: Muscle bulk/ tone/ strength in the bilateral upper extremities normal Vertebral body tenderness to palpation over Spurling test positive Distraction test positive Facet loading test positive TTP Thoracic spine Muscle bulk / tone/ strength in the bilateral paraspinal muscles normal Vertebral body tender to palpation over Facet loading test positive TTP Lumbar spine: Motor bulk/ tone/ strength lower extremities , thigh and legs : 5/5 Deep tendon reflexes : Normal Knee Jerk. Normal Ankle Jerk . Vertebral body tenderness to palpation over L2, L3, L4, L5 Lumbar Facet Loading Test positive Straight Leg Raise: positive at 30 degrees right side/ left side Gaenslen's Test positive Sacral spine : Severe tenderness over the Sacroiliac joint: right side / left side Range of motion: Flexion of the lumbar spine <60 degrees Range of motion: Extension of the lumbar spine <20 degrees Gaenslen's Test positive right side / left side Juan Carlos test: positive right side / left side Thigh Thrust Test positive right side / left side Sacral Thrust Test positive right side / left side Assessment and plan: Chronic LBP secondary to lumbar DDD, spondylosis with facet arthropathy without myelopathy Chronic and current use of high-risk medication (Opioids). The patient was counseled about risk of opioid use, psychological risk associated with opioids and was orally counseled to not overuse , divert or sell medications. Pt is to store medication in a safe location. The patient is counseled against driving while using narcotic medications and also not to use alcohol or any illicit recreational drugs. Patient verbalized understanding that the lack of compliance will result in failure to renew narcotic prescription(s) as well as possible discharge from the clinic Diagnoses, prognosis and treatment options including but not limited to physical therapy, surgical interventions, interventional therapies and medication management including narcotics and adjuvant medication were discussed. All patient questions answered MAPS reviewed and it was appropriate. UDS collected 12/27/22. Prescription refill for Percocet 5/325mg #120 w 2 RF. Add Voltaren gel. I have spent less than 30 minutes on patient care today. Dr Camarillo was available by phone for the evaluation of this patient. The time was used to review the medical records including relevant urine studies and Prescription history (MAPs), review of the available imaging, evaluation and examination of the patient, coordination of care with the medical staff and if applicable referring physicians, as well as creation of the medical record PQRS Narrative: Smoking Status Former smoker Narcotic Agreement Date Signed 09/08/21 Hx Alcohol Use (MH) Yes Home Medications: Ambulatory Orders Atorvastatin [Lipitor] 40 mg PO HS 07/28/13 Lansoprazole [Prevacid] 15 mg PO PC-LUNCH 07/28/13 atenoloL [Tenormin] 50 mg PO HS 07/28/13 amLODIPine [Norvasc] 5 mg PO BID 04/26/15 Olmesartan Medoxomil [Benicar] 40 mg PO DAILY 10/15/17 Biotin [Biotin Disolve] 5,000 mcg PO DAILY 07/04/18 Cholecalciferol [Vitamin D3 (25 Mcg = 1000 Iu)] 5,000 unit PO MOWEFR 07/04/18 Docusate [Colace] 200 mg PO HS 07/04/18 Loratadine [Claritin] 10 mg PO DAILY 07/04/18 Memantine [Namenda] 5 mg PO TID 07/04/18 Multivitamins, Thera [Multivitamin (formulary)] 1 tab PO DAILY 07/04/18 L.acidoph,Paracasei, B.lactis [Probiotic] 1 each PO DAILY 11/20/18 Calcium Carbonate [Calcium] 600 mg PO BID 04/03/19 Fluticasone Nasal [place] [Flonase Nasal [place]] 1 spray EA NOSTRIL BID 11/12/19 Sertraline [Zoloft] 100 mg PO HS 03/07/21 Empagliflozin [Jardiance] 10 mg PO DAILY 02/22/22 Ezetimibe [Zetia] 10 mg PO DAILY 02/22/22 Diclofenac Sodium Gel [Voltaren 1% Gel] 2 gm TOPICAL QID PRN 30 Days #100 gm 10/04/22 oxyCODONE HCL/ACETAMINOPHEN [Percocet 5-325 mg] 1 tab PO Q6HR PRN 30 Days #120 tab 10/04/22 oxyCODONE HCL/ACETAMINOPHEN [Percocet 5-325 mg] 1 tab PO Q6HR PRN 30 Days #120 tab 10/04/22 oxyCODONE HCL/ACETAMINOPHEN [Percocet 5-325 mg] 1 tab PO Q6HR PRN 30 Days #120 tab 10/04/22 Controlled Substance Measures - Controlled Substance Measures Is patient prescribed a controlled substance at discharge?: Yes
== END ==
LOC: PNWHC3 13:01
PROVIDERS: ATTEND Specialist
DX: M51.36 Other intervertebral disc degeneration, lumbar region (principal); M47.816 Spondylosis without myelopathy or radiculopathy, lumbar region; Z88.5 Allergy status to narcotic agent; Z88.3 Allergy status to other anti-infective agents; Z88.6 Allergy status to analgesic agent; Z88.8 Allergy status to other drugs, medicaments and biological substances; Z91.018 Allergy to other foods; Z87.891 Personal history of nicotine dependence; Z79.891 Long term (current) use of opiate analgesic; Z91.02 Food additives allergy status
CPT/HCPCS: 80307; G0463; 99212

== ENCOUNTER → 2023-03-28 | Outpatient (CLI) | payer MEDICARE ==
[2023-03-28 14:42] VITALS: BP 132/62; PULSE 98; RESP 15; TEMP 98.5
--- NOTE | 2023-03-28 14:46 | P.PAINPG ---
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 Pain level is provoked at 6 -7 /10 in intensity, constant, localized in the lumbar spine, sore in character w shooting towards the BLEs. Pain is provoked by bending, lifting. Pain is alleviated with medications, topicals, use of a walker for ambulation, sitting, repositioning and rest. PT, massage and chiropractic treatments is unaffordable at this time. PT was years ago. Injections in the past have been ineffective. Patient is currently on Percocet 5/325mg #120, Voltaren gel Patient denies any side effects of the medication(s), denies excessive drowsiness or sleepiness, denies suicidal ideation and reports that the current pain medication is helping to control the pain and improve activities of daily living. Patient denies any motor or sensory deficits. Patient denies any fever or night sweats, denies any change in the bowel movements or urination. Physical Examination: -Constitutional: Cooperative. Not in acute distress . - Neurologic: Cranial nerve II to XII intact. No focal neurological deficits. - Psychatric: Alert & oriented x 3. Matching mood & appropriate affect. Judgment and insight intact. - Musculoskeletal: Cervical spine: Muscle bulk/ tone/ strength in the bilateral upper extremities normal Vertebral body tenderness to palpation over Spurling test positive Distraction test positive Facet loading test positive TTP Thoracic spine Muscle bulk / tone/ strength in the bilateral paraspinal muscles normal Vertebral body tender to palpation over Facet loading test positive TTP Lumbar spine: Motor bulk/ tone/ strength lower extremities , thigh and legs : 5/5 Deep tendon reflexes : Normal Knee Jerk. Normal Ankle Jerk . Vertebral body tenderness to palpation over L2, L3, L4, L5 Lumbar Facet Loading Test positive Straight Leg Raise: positive at 30 degrees right side/ left side Gaenslen's Test positive Sacral spine : Severe tenderness over the Sacroiliac joint: right side / left side Range of motion: Flexion of the lumbar spine <60 degrees Range of motion: Extension of the lumbar spine <20 degrees Gaenslen's Test positive right side / left side Juan Carlos test: positive right side / left side Thigh Thrust Test positive right side / left side Sacral Thrust Test positive right side / left side Assessment and plan: Chronic LBP secondary to lumbar DDD, spondylosis with facet arthropathy without myelopathy Chronic and current use of high-risk medication (Opioids). The patient was counseled about risk of opioid use, psychological risk associated with opioids and was orally counseled to not overuse , divert or sell medications. Pt is to store medication in a safe location. The patient is counseled against driving while using narcotic medications and also not to use alcohol or any illicit recreational drugs. Patient verbalized understanding that the lack of compliance will result in failure to renew narcotic prescription(s) as well as possible discharge from the clinic Diagnoses, prognosis and treatment options including but not limited to physical therapy, surgical interventions, interventional therapies and medication management including narcotics and adjuvant medication were discussed. All patient questions answered MAPS reviewed and it was appropriate. UDS fr 12/27/22 reviewed and consistent. Prescription refill for Percocet 5/325mg #120 and Voltaren gel w 2 RF. I have spent less than 30 minutes on patient care today. Dr Camarillo was available by phone for the evaluation of this patient. The time was used to review the medical records including relevant urine studies and Prescription history (MAPs), review of the available imaging, evaluation and examination of the patient, coordination of care with the medical staff and if applicable referring physicians, as well as creation of the medical record PQRS Narrative: Smoking Status Former smoker Narcotic Agreement Date Signed 12/27/22 Hx Alcohol Use (MH) Yes Home Medications: Ambulatory Orders Atorvastatin [Lipitor] 40 mg PO HS 07/28/13 Lansoprazole [Prevacid] 15 mg PO PC-LUNCH 07/28/13 atenoloL [Tenormin] 50 mg PO HS 07/28/13 amLODIPine [Norvasc] 5 mg PO BID 04/26/15 Olmesartan Medoxomil [Benicar] 40 mg PO DAILY 10/15/17 Biotin [Biotin Disolve] 5,000 mcg PO DAILY 07/04/18 Cholecalciferol [Vitamin D3 (25 Mcg = 1000 Iu)] 5,000 unit PO MOWEFR 07/04/18 Docusate [Colace] 200 mg PO HS 07/04/18 Loratadine [Claritin] 10 mg PO DAILY 07/04/18 Memantine [Namenda] 5 mg PO TID 07/04/18 Multivitamins, Thera [Multivitamin (formulary)] 1 tab PO DAILY 07/04/18 L.acidoph,Paracasei, B.lactis [Probiotic] 1 each PO DAILY 11/20/18 Calcium Carbonate [Calcium] 600 mg PO BID 04/03/19 Fluticasone Nasal [place] [Flonase Nasal [place]] 1 spray EA NOSTRIL BID 11/12/19 Sertraline [Zoloft] 100 mg PO HS 03/07/21 Empagliflozin [Jardiance] 10 mg PO DAILY 02/22/22 Ezetimibe [Zetia] 10 mg PO DAILY 02/22/22 Diclofenac Sodium Gel [Voltaren 1% Gel] 2 gm TOPICAL QID PRN 30 Days #100 gm 03/28/23 oxyCODONE HCL/ACETAMINOPHEN [Percocet 5-325 mg] 1 tab PO Q6HR PRN 30 Days #120 tab 03/28/23 oxyCODONE HCL/ACETAMINOPHEN [Percocet 5-325 mg] 1 tab PO Q6HR PRN 30 Days #120 tab 03/28/23 oxyCODONE HCL/ACETAMINOPHEN [Percocet 5-325 mg] 1 tab PO Q6HR PRN 30 Days #120 tab 03/28/23 Controlled Substance Measures - Controlled Substance Measures Is patient prescribed a controlled substance at discharge?: Yes When asked, does pt state using other controlled substances?: No If prescribed controlled substance>3 days was MAPS reviewed?: Yes
== END ==
LOC: PNWHC3 14:27
PROVIDERS: ATTEND Specialist
DX: M51.36 Other intervertebral disc degeneration, lumbar region (principal); M47.816 Spondylosis without myelopathy or radiculopathy, lumbar region; G89.29 Other chronic pain; Z79.891 Long term (current) use of opiate analgesic; Z88.5 Allergy status to narcotic agent; Z88.8 Allergy status to other drugs, medicaments and biological substances; Z87.891 Personal history of nicotine dependence
CPT/HCPCS: 99211

== ENCOUNTER → 2023-07-09 | Outpatient (CLI) | payer MEDICARE ==
[2023-07-09 14:43] VITALS: BP 128/66; PULSE 58; RESP 16
--- NOTE | 2023-07-09 14:46 | P.PAINPG ---
PQRS Measure Charge Sheet Comment: A 82 yr old female with a history of severe and chronic LBP > 20 yrs secondary to lumbar DDD and spondylosis with facet arthropathy without myelopathy presents today for medication refills. Pain level is provoked at 6 -7 /10 in intensity, constant, localized in the lumbar spine, sore in character w shooting towards the BLEs. Pain is provoked by bending, lifting. Pain is alleviated with medications, topicals, use of a walker for ambulation, sitting, repositioning and rest. PT, massage and chiropractic treatments is unaffordable at this time. PT was years ago. Injections in the past have been ineffective. Patient is currently on Percocet 5/325mg #120, Voltaren gel Patient denies any side effects of the medication(s), denies excessive drowsiness or sleepiness, denies suicidal ideation and reports that the current pain medication is helping to control the pain and improve activities of daily living. Patient denies any motor or sensory deficits. Patient denies any fever or night sweats, denies any change in the bowel movements or urination. Physical Examination: -Constitutional: Cooperative. Not in acute distress . - Neurologic: Cranial nerve II to XII intact. No focal neurological deficits. - Psychatric: Alert & oriented x 3. Matching mood & appropriate affect. Judgment and insight intact. - Musculoskeletal: Cervical spine: Muscle bulk/ tone/ strength in the bilateral upper extremities normal Vertebral body tenderness to palpation over Spurling test positive Distraction test positive Facet loading test positive TTP Thoracic spine Muscle bulk / tone/ strength in the bilateral paraspinal muscles normal Vertebral body tender to palpation over Facet loading test positive TTP Lumbar spine: Motor bulk/ tone/ strength lower extremities , thigh and legs : 5/5 Deep tendon reflexes : Normal Knee Jerk. Normal Ankle Jerk . Vertebral body tenderness to palpation over L2, L3, L4, L5 Lumbar Facet Loading Test positive Straight Leg Raise: positive at 30 degrees right side/ left side Gaenslen's Test positive Sacral spine : Severe tenderness over the Sacroiliac joint: right side / left side Range of motion: Flexion of the lumbar spine <60 degrees Range of motion: Extension of the lumbar spine <20 degrees Gaenslen's Test positive right side / left side Juan Carlos test: positive right side / left side Thigh Thrust Test positive right side / left side Sacral Thrust Test positive right side / left side Assessment and plan: Chronic LBP secondary to lumbar DDD, spondylosis with facet arthropathy without myelopathy Chronic and current use of high-risk medication (Opioids). The patient was counseled about risk of opioid use, psychological risk associated with opioids and was orally counseled to not overuse , divert or sell medications. Pt is to store medication in a safe location. The patient is counseled against driving while using narcotic medications and also not to use alcohol or any illicit recreational drugs. Patient verbalized understanding that the lack of compliance will result in failure to renew narcotic prescription(s) as well as possible discharge from the clinic Diagnoses, prognosis and treatment options including but not limited to physical therapy, surgical interventions, interventional therapies and medication management including narcotics and adjuvant medication were discussed. All patient questions answered MAPS reviewed and it was appropriate. UDS collected 07/09/23. Prescription refill for Percocet 5/325mg #120 and Voltaren gel w 2 RF. I have spent less than 30 minutes on patient care today. Dr Camarillo was available by phone for the evaluation of this patient. The time was used to review the medical records including relevant urine studies and Prescription history (MAPs), review of the available imaging, evaluation and examination of the patient, coordination of care with the medical staff and if applicable referring physicians, as well as creation of the medical record PQRS Narrative: Smoking Status Former smoker Narcotic Agreement Date Signed 12/27/22 Hx Alcohol Use (MH) Yes Home Medications: Ambulatory Orders Atorvastatin [Lipitor] 40 mg PO HS 07/28/13 Lansoprazole [Prevacid] 15 mg PO PC-LUNCH 07/28/13 atenoloL [Tenormin] 50 mg PO HS 07/28/13 amLODIPine [Norvasc] 5 mg PO BID 04/26/15 Olmesartan Medoxomil [Benicar] 40 mg PO DAILY 10/15/17 Biotin [Biotin Disolve] 5,000 mcg PO DAILY 07/04/18 Cholecalciferol [Vitamin D3 (25 Mcg = 1000 Iu)] 5,000 unit PO MOWEFR 07/04/18 Docusate [Colace] 200 mg PO HS 07/04/18 Loratadine [Claritin] 10 mg PO DAILY 07/04/18 Memantine [Namenda] 5 mg PO TID 07/04/18 Multivitamins, Thera [Multivitamin (formulary)] 1 tab PO DAILY 07/04/18 L.acidoph,Paracasei, B.lactis [Probiotic] 1 each PO DAILY 11/20/18 Calcium Carbonate [Calcium] 600 mg PO BID 04/03/19 Fluticasone Nasal [place] [Flonase Nasal [place]] 1 spray EA NOSTRIL BID 11/12/19 Sertraline [Zoloft] 100 mg PO HS 03/07/21 Empagliflozin [Jardiance] 10 mg PO DAILY 02/22/22 Ezetimibe [Zetia] 10 mg PO DAILY 02/22/22 Diclofenac Sodium Gel [Voltaren 1% Gel] 2 gm TOPICAL QID PRN 30 Days #100 gm 07/09/23 oxyCODONE HCL/ACETAMINOPHEN [Percocet 5-325 mg] 1 tab PO Q6HR PRN 30 Days #120 tab 07/09/23 oxyCODONE HCL/ACETAMINOPHEN [Percocet 5-325 mg] 1 tab PO Q6HR PRN 30 Days #120 tab 07/09/23 oxyCODONE HCL/ACETAMINOPHEN [Percocet 5-325 mg] 1 tab PO Q6HR PRN 30 Days #120 tab 07/09/23 Controlled Substance Measures - Controlled Substance Measures Is patient prescribed a controlled substance at discharge?: Yes When asked, does pt state using other controlled substances?: No If prescribed controlled substance>3 days was MAPS reviewed?: Yes
== END ==
LOC: PNWHC3 13:32
PROVIDERS: ATTEND Specialist
DX: M51.36 Other intervertebral disc degeneration, lumbar region (principal); M47.816 Spondylosis without myelopathy or radiculopathy, lumbar region; Z87.891 Personal history of nicotine dependence; Z79.891 Long term (current) use of opiate analgesic; Z88.5 Allergy status to narcotic agent; Z88.8 Allergy status to other drugs, medicaments and biological substances
CPT/HCPCS: 99212

== ENCOUNTER → 2023-10-01 | Outpatient (CLI) | payer MEDICARE ==
--- NOTE | 2023-10-01 15:12 | P.PAINPG ---
PQRS Measure Charge Sheet Comment: A 82 yr old female with a history of severe and chronic LBP > 20 yrs secondary to lumbar DDD and spondylosis with facet arthropathy without myelopathy presents today for medication refills. Pain level is provoked at 7 /10 in intensity, constant, localized in the lumbar spine, predominantly axial, sore in character w shooting towards the BLEs. Pain is provoked by bending, lifting. Pain is alleviated with medications, topicals, use of a walker for ambulation, sitting, repositioning and rest. PT, massage and chiropractic treatments is unaffordable at this time. PT was years ago. Injections in the past have been ineffective. Patient is currently on Percocet 5/325mg #120, Voltaren gel Patient denies any side effects of the medication(s), denies excessive drowsiness or sleepiness, denies suicidal ideation and reports that the current pain medication is helping to control the pain and improve activities of daily living. Patient denies any motor or sensory deficits. Patient denies any fever or night sweats, denies any change in the bowel movements or urination. Physical Examination: -Constitutional: Cooperative. Not in acute distress . - Neurologic: Cranial nerve II to XII intact. No focal neurological deficits. - Psychatric: Alert & oriented x 3. Matching mood & appropriate affect. Judgment and insight intact. - Musculoskeletal: Cervical spine: Muscle bulk/ tone/ strength in the bilateral upper extremities normal Vertebral body tenderness to palpation over Spurling test positive Distraction test positive Facet loading test positive TTP Thoracic spine Muscle bulk / tone/ strength in the bilateral paraspinal muscles normal Vertebral body tender to palpation over Facet loading test positive TTP Lumbar spine: Motor bulk/ tone/ strength lower extremities , thigh and legs : 5/5 Deep tendon reflexes : Normal Knee Jerk. Normal Ankle Jerk . Vertebral body tenderness to palpation over L2, L3, L4, L5 Lumbar Facet Loading Test positive Straight Leg Raise: positive at 30 degrees right side/ left side Gaenslen's Test positive Sacral spine : Severe tenderness over the Sacroiliac joint: right side / left side Range of motion: Flexion of the lumbar spine <60 degrees Range of motion: Extension of the lumbar spine <20 degrees Gaenslen's Test positive right side / left side Juan Carlos test: positive right side / left side Thigh Thrust Test positive right side / left side Sacral Thrust Test positive right side / left side Assessment and plan: Chronic LBP secondary to lumbar DDD, spondylosis with facet arthropathy without myelopathy Chronic and current use of high-risk medication (Opioids). The patient was counseled about risk of opioid use, psychological risk a ssociated with opioids and was orally counseled to not overuse , divert or sell medications. Pt is to store medication in a safe location. The patient is counseled against driving while using narcotic medications and also not to use alcohol or any illicit recreational drugs. Patient verbalized understanding that the lack of compliance will result in failure to renew narcotic prescription(s) as well as possible discharge from the clinic Diagnoses, prognosis and treatment options including but not limited to physical therapy, surgical interventions, interventional therapies and medication management including narcotics and adjuvant medication were discussed. All patient questions answered MAPS reviewed and it was appropriate. UDS from 07/09/23 pending. Prescription refill for Percocet 5/325mg #120 and Voltaren gel w 2 RF. I have spent less than 30 minutes on patient care today. Dr Camarillo was available by phone for the evaluation of this patient. The time was used to review the medical records including relevant urine studies and Prescription history (MAPs), review of the available imaging, evaluation and examination of the patient, coordination of care with the medical staff and if applicable referring physicians, as well as creation of the medical record PQRS Narrative: Smoking Status Former smoker Narcotic Agreement Date Signed 12/27/22 Hx Alcohol Use (MH) Yes Home Medications: Ambulatory Orders Atorvastatin [Lipitor] 40 mg PO HS 07/28/13 Lansoprazole [Prevacid] 15 mg PO PC-LUNCH 07/28/13 atenoloL [Tenormin] 50 mg PO HS 07/28/13 amLODIPine [Norvasc] 5 mg PO BID 04/26/15 Olmesartan Medoxomil [Benicar] 40 mg PO DAILY 10/15/17 Biotin [Biotin Disolve] 5,000 mcg PO DAILY 07/04/18 Cholecalciferol [Vitamin D3 (25 Mcg = 1000 Iu)] 5,000 unit PO MOWEFR 07/04/18 Docusate [Colace] 200 mg PO HS 07/04/18 Loratadine [Claritin] 10 mg PO DAILY 07/04/18 Memantine [Namenda] 5 mg PO TID 07/04/18 Multivitamins, Thera [Multivitamin (formulary)] 1 tab PO DAILY 07/04/18 L.acidoph,Paracasei, B.lactis [Probiotic] 1 each PO DAILY 11/20/18 Calcium Carbonate [Calcium] 600 mg PO BID 04/03/19 Fluticasone Nasal [place] [Flonase Nasal [place]] 1 spray EA NOSTRIL BID 11/12/19 Sertraline [Zoloft] 100 mg PO HS 03/07/21 Empagliflozin [Jardiance] 10 mg PO DAILY 02/22/22 Ezetimibe [Zetia] 10 mg PO DAILY 02/22/22 Diclofenac Sodium Gel [Voltaren 1% Gel] 2 gm TOPICAL QID PRN 30 Days #100 gm 07/09/23 oxyCODONE HCL/ACETAMINOPHEN [Percocet 5-325 mg] 1 tab PO Q6HR PRN 30 Days #120 tab 07/09/23 oxyCODONE HCL/ACETAMINOPHEN [Percocet 5-325 mg] 1 tab PO Q6HR PRN 30 Days #120 tab 07/09/23 oxyCODONE HCL/ACETAMINOPHEN [Percocet 5-325 mg] 1 tab PO Q6HR PRN 30 Days #120 tab 07/09/23 Controlled Substance Measures - Controlled Substance Measures Is patient prescribed a controlled substance at discharge?: Yes When asked, does pt state using other controlled substances?: No If prescribed controlled substance>3 days was MAPS reviewed?: Yes
[2023-10-01 16:22] VITALS: BP 104/58; PULSE 85; RESP 16; TEMP 97.8
== END ==
LOC: PNWHC3 13:36
PROVIDERS: ATTEND Specialist
DX: M51.36 Other intervertebral disc degeneration, lumbar region
CPT/HCPCS: 99211

== ENCOUNTER → 2023-10-01 | Outpatient (CLI) | payer MEDICARE | END | disposition home or self-care (01) | LOC: LABWHC1 15:01 | PROVIDERS: ATTEND Physician Assistant Medical | DX: Z02.83 Encounter for blood-alcohol and blood-drug test (principal) | CPT/HCPCS: 36415; 80307 ==

== ENCOUNTER → 2023-12-24 | Outpatient (CLI) | payer MEDICARE ==
[2023-12-24 14:10] VITALS: BP 109/63; PULSE 59; RESP 16
--- NOTE | 2023-12-26 07:39 | P.PAINPG ---
Objective - Vital Signs Vital signs: Intake & Output 12/23/23 12/24/23 12/24/23 18:59 06:59 18:59 Weight 58.06 kg PQRS Measure Charge Sheet Comment: A 83 yr old female with a history of severe and chronic LBP > 20 yrs secondary to radiculopoathy, spondylosis with facet arthropathy without myelopathy presents today for medication refills. Pain level is provoked at 7 /10 in intensity, constant, localized in the lumbar spine, predominantly axial, sore in character w shooting towards the BLEs. Pain is provoked by bending, lifting. Pain is alleviated with medications, topicals, use of a walker for ambulation, sitting, repositioning and rest. PT, massage and chiropractic treatments is unaffordable at this time. PT was years ago. Injections in the past have been ineffective. Patient is currently on Percocet 5/325mg #120, Voltaren gel Patient denies any side effects of the medication(s), denies excessive drowsiness or sleepiness, denies suicidal ideation and reports that the current pain medication is helping to control the pain and improve activities of daily living. Patient denies any motor or sensory deficits. Patient denies any fever or night sweats, denies any change in the bowel movements or urination. Physical Examination: -Constitutional: Cooperative. Not in acute distress . - Neurologic: Cranial nerve II to XII intact. No focal neurological deficits. - Psychatric: Alert & oriented x 3. Matching mood & appropriate affect. Judgment and insight intact. - Musculoskeletal: Cervical spine: Muscle bulk/ tone/ strength in the bilateral upper extremities normal Vertebral body tenderness to palpation over Spurling test positive Distraction test positive Facet loading test positive TTP Thoracic spine Muscle bulk / tone/ strength in the bilateral paraspinal muscles normal Vertebral body tender to palpation over Facet loading test positive TTP Lumbar spine: Motor bulk/ tone/ strength lower extremities , thigh and legs : 5/5 Deep tendon reflexes : Normal Knee Jerk. Normal Ankle Jerk . Vertebral body tenderness to palpation over L2, L3, L4, L5 Lumbar Facet Loading Test positive Straight Leg Raise: positive at 30 degrees right side/ left side Gaenslen's Test positive Sacral spine : Severe tenderness over the Sacroiliac joint: right side / left side Range of motion: Flexion of the lumbar spine <60 degrees Range of motion: Extension of the lumbar spine <20 degrees Gaenslen's Test positive right side / left side Juan Carlos test: positive right side / left side Thigh Thrust Test positive right side / left side Sacral Thrust Test positive right side / left side Assessment and plan: Chronic LBP secondary to radiculopathy, spondylosis with facet arthropathy without myelopathy Chronic and current use of high-risk medication (Opioids). The patient was counseled about risk of opioid use, psychological risk as sociated with opioids and was orally counseled to not overuse , divert or sell medications. Pt is to store medication in a safe location. The patient is counseled against driving while using narcotic medications and also not to use alcohol or any illicit recreational drugs. Patient verbalized understanding that the lack of compliance will result in failure to renew narcotic prescription(s) as well as possible discharge from the clinic Diagnoses, prognosis and treatment options including but not limited to physical therapy, surgical interventions, interventional therapies and medication management including narcotics and adjuvant medication were discussed. All patient questions answered MAPS reviewed and it was appropriate. UDS from 07/09/23 pending, 10/01/23 NEG for medications prescribed. Will repeat UDS 12/24/23. Prescription refill for Percocet 5/325mg #120 and Voltaren gel w 2 RF. I have spent less than 30 minutes on patient care today. Dr Camarillo was available by phone for the evaluation of this patient. The time was used to review the medical records including relevant urine studies and Prescription history (MAPs), review of the available imaging, evaluation and examination of the patient, coordination of care with the medical staff and if applicable referring physicians, as well as creation of the medical record PQRS Narrative: Smoking Status Former smoker Narcotic Agreement Date Signed 12/27/22 Hx Alcohol Use (MH) Yes Home Medications: Ambulatory Orders Atorvastatin [Lipitor] 40 mg PO HS 07/28/13 Lansoprazole [Prevacid] 15 mg PO PC-LUNCH 07/28/13 atenoloL [Tenormin] 50 mg PO HS 07/28/13 amLODIPine [Norvasc] 5 mg PO BID 04/26/15 Olmesartan Medoxomil [Benicar] 40 mg PO DAILY 10/15/17 Biotin [Biotin Disolve] 5,000 mcg PO DAILY 07/04/18 Cholecalciferol [Vitamin D3 (25 Mcg = 1000 Iu)] 5,000 unit PO MOWEFR 07/04/18 Docusate [Colace] 200 mg PO HS 07/04/18 Loratadine [Claritin] 10 mg PO DAILY 07/04/18 Memantine [Namenda] 5 mg PO TID 07/04/18 Multivitamins, Thera [Multivitamin (formulary)] 1 tab PO DAILY 07/04/18 L.acidoph,Paracasei, B.lactis [Probiotic] 1 each PO DAILY 11/20/18 Calcium Carbonate [Calcium] 600 mg PO BID 04/03/19 Fluticasone Nasal [place] [Flonase Nasal [place]] 1 spray EA NOSTRIL BID 11/12/19 Sertraline [Zoloft] 100 mg PO HS 03/07/21 Empagliflozin [Jardiance] 10 mg PO DAILY 02/22/22 Ezetimibe [Zetia] 10 mg PO DAILY 02/22/22 Diclofenac Sodium Gel [Voltaren 1% Gel] 2 gm TOPICAL QID PRN 30 Days #100 gm 12/24/23 oxyCODONE HCL/ACETAMINOPHEN [Percocet 5-325 mg] 1 tab PO Q6HR PRN 30 Days #120 tab 12/24/23 oxyCODONE HCL/ACETAMINOPHEN [Percocet 5-325 mg] 1 tab PO Q6HR PRN 30 Days #120 tab 12/24/23 oxyCODONE HCL/ACETAMINOPHEN [Percocet 5-325 mg] 1 tab PO Q6HR PRN 30 Days #120 tab 12/24/23 Controlled Substance Measures - Controlled Substance Measures Is patient prescribed a controlled substance at discharge?: Yes When asked, does pt state using other controlled substances?: Yes If prescribed controlled substance>3 days was MAPS reviewed?: Yes
== END ==
LOC: PNWHC3 13:53
PROVIDERS: ATTEND Specialist
DX: M47.26 Other spondylosis with radiculopathy, lumbar region (principal); Z79.891 Long term (current) use of opiate analgesic; Z87.891 Personal history of nicotine dependence; Z88.5 Allergy status to narcotic agent; Z88.8 Allergy status to other drugs, medicaments and biological substances
CPT/HCPCS: 80307; G0463; 99211